=== PATIENT | female | born 1970 | race Caucasian/White ===

== ENCOUNTER → 2018-11-27 11:30 | Outpatient (CLI) | payer MEDICAID, SELFPAY ==
[2018-11-27 12:22] LABS: Basophils % 0.4 % (0.1-2.0); Eosinophils # 0.1 K/mm3 (0.0-0.4); Eosinophils % 1.9 % (0.1-12.0); Hematocrit 41.6 % (37.0-47.0); Hemoglobin 13.3 g/dL (12.2-16.2); Lymphocytes # 1.4 K/mm3 (0.7-4.5); Lymphocytes % 24.6 % (10-50); Mean Corpuscular HGB Conc 32.1 g/dL (31.8-35.4); Mean Corpuscular Hemoglobin 28.9 pg (27.0-31.2); Mean Platelet Volume 8.1 fl (7.4-10.4); Monocytes # 0.3 K/mm3 (0.1-1.0); Neutrophils # 3.7 K/mm3 (1.8-7.8); Platelet Count 225 K/mm3 (142-424); Red Blood Count 4.62 M/mm3 (4.20-5.40); Red Cell Distribution Width 15.1 % (11.5-17.5); White Blood Count 5.4 K/mm3 (4.8-10.8)
[2018-11-27 14:55] LABS: Alanine Aminotransferase 34 U/L (12-78); Albumin Level 3.7 gm/dL (3.4-5.0); Albumin/Globulin Ratio 1.1 (1.1-1.8); Alkaline Phosphatase 91 U/L (46-116); Anion Gap 14.1 mEq/L (5-15); Aspartate Amino Transferase 22 U/L (15-37); Bilirubin,Total 0.3 mg/dL (0.2-1.0); Blood Urea Nitrogen 11 mg/dL (7-18); Carbon Dioxide 27 mmol/L (21.0-32.0); Chloride 103 mmol/L (98-107); Creatinine,Serum 1.15 mg/dL (0.55-1.02); Estimated Glomerular Filt Rate 50 ml/min (>60); GFR (African American) 61 ML/MIN (>60); Globulin 3.5 gm/dl (1.3-3.2); Glucose 79 mg/dL (74-106); Potassium 4.1 mmoL/L (3.5-5.1); Sodium 140 mmol/L (136-145); Thyroid Stimulating Hormone 2.25 uIU/ml (0.358-3.740); Total Protein,Serum 7.2 gm/dL (6.4-8.2)
[2018-11-28 18:36] LABS: FSH 38.5 mIU/mL (.); LH 20.7 mIU/mL (.)
== END ==
PROVIDERS: PCP Internal Medicine Adolescent Medicine; Visit Provider Internal Medicine Adolescent Medicine
DX: N93.9 Abnormal uterine and vaginal bleeding, unspecified (principal); E66.9 Obesity, unspecified
CPT/HCPCS: 36415; 80053; 83001; 83002; 84443; 85025

== ENCOUNTER → 2019-01-06 10:44 | Outpatient (CLI) | payer MEDICAID, SELFPAY ==
--- NOTE | 2019-01-06 10:47 | MM_ITS ---
MM Dig screening mamm BI w/CAD ORDERING PHYSICIAN : Demetrius Williamson MD PATIENT AGE: 48 years GENDER: Female [facility] 2016 and May 2014 INDICATION: ITS.Routine SCREENING.. Taking control pills. No new complaints. Family history. Mother with breast cancer postmenopausal TECHNIQUE: Standard CC and MLO images were obtained. R2 CAD reviewed. FINDINGS: Mild/moderate residual fibroglandular elements towards upper outer quadrant right and left breast. Overall pattern with mild asymmetry appears stable with no dominant mass nor suspicious findings. No suspicious calcifications. No new areas of concern in either breast. . The appearance at superior right breast appears stable on today's MLO view versus 2016 and other studies. No new findings. Bilateral follow-up in one year recommended. IMPRESSION: Stable bilateral mammogram. No new areas of significant concern Moderate breast density. Bilateral follow-up in one year recommended BI-RADS Category: 2 Benign Finding(s) RECOMMENDED FOLLOW-UP: 1YR 1 YEAR FOLLOW-UP (A letter has been sent to the patient regarding results of the study.)
== END ==
PROVIDERS: PCP Internal Medicine Adolescent Medicine; Visit Provider Internal Medicine Adolescent Medicine
DX: Z12.31 Encounter for screening mammogram for malignant neoplasm of breast (principal)
CPT/HCPCS: 77067

== ENCOUNTER 2019-12-03 18:28 | Emergency (ER) | payer OTHER, SELFPAY ==
[2019-12-03 18:42] VITALS: BP 119/78; PULSE 79; RESP 20; TEMP 36.7; O2SAT 99; BMI 33.8
--- NOTE | 2019-12-03 18:58 | HMH.EDUTC ---
[facility] [place] Clinical Impression: Allergic reaction Qualifiers: Encounter type: initial encounter Qualified Code(s): T78.40XA - Allergy, unspecified, initial encounter Bee sting Qualifiers: Encounter type: initial encounter Injury intent: accidental or unintentional Qualified Code(s): T63.441A - Toxic effect of venom of bees, accidental (unintentional), initial encounter Disposition: Home, Self-Care Condition on Discharge: Good Instructions: Insect Bites and Stings, DI for Hives Additional Instructions: Drink plenty of fluids. Take benedryl regularly every 6 hours for the next few days. Take the medications as directed. Follow up with your regular doctor. GO TO THE ER FOR ANY WORSENING SYMPTOMS Prescriptions: methylPREDNISolone [Medrol] 4 mg PO DIRECTED 6 Days #21 tab.ds.pk Transmission Status: Received by [id number] Referrals: Skylar Farley PA [Primary Care Provider] - Time of Disposition: 19:02 Medical Decision Making - Medical Records Medical records reviewed: No: I reviewed the patient's medical records. - Jatin Inquiry Pt receiving controlled substance: No Vital Signs: 12/03/19 18:42 12/03/19 19:10 Temperature 98.1 F 98.1 F Temperature Source Oral Pulse Rate 79 Pulse Rate [Right Brachial] 79 Respiratory Rate 20 20 Blood Pressure 119/78 Blood Pressure [Right Arm] 119/78 Blood Pressure Mean [Right Arm] 91 Blood Pressure Source [Right Arm] Automatic Cuff Blood Pressure Position [Right Arm] Sitting 02 Sat by Pulse Oximetry 99 Oxygen Delivery Method Room Air - Lab Data Lab results reviewed: Yes: I reviewed the patient's lab results. Orders (Tests/Meds): ED MEDICATIONS Discontinued Medications Generic Name Dose Route Start Last Admin Trade Name Freq PRN Reason Stop Dose Admin Methylprednisolone Sodium Succinate 125 mg 12/03/19 19:04 12/03/19 19:08 Solu-Medrol 125mg/2ml Vial IM 12/03/19 19:05 125 mg ONCE ONE Administration [facility] [place] - General Stated complaint: hives on chest arms and legs Time Seen by Provider: 12/03/19 18:58 Mode of Arrival: Ambulatory Source of Information: Patient Limitations: No Limitations Description of Symptoms (Recalled from Triage Doc. by RN): PATIENT C/O RASH/HIVES TO CHEST, FACE, ARMS AND LEGS SINCE 399, CAUSE UNKNOWN HEENT Symptoms (Recalled from RN notes): No Resp Symptoms (Recalled from RN notes): No Skin Symptoms (Recalled from RN notes): Yes MS Symptoms (Recalled from RN notes): No Functional Status (Recalled from RN notes): wnl - History of Present Illness Provider Complaint: She c/o having hives all over her body since this morning. She states that she got stung by a bee yesterday. She denies any chest pain, mouth or throat swelling or shortness of breath. - Related Data Home Medications Medication Instructions Recorded Confirmed Buspirone HCl [Buspar 10mg 10 mg PO BID 12/03/19 12/03/19 tablet] Citalopram Hydrobromide 20 mg PO DAILY 12/03/19 12/03/19 [Citalopram 20mg Tablet] Previous Rx's Medication Instructions Recorded methylPREDNISolone [Medrol] 4 mg PO DIRECTED 6 Days #21 12/03/19 tab.ds.pk Allergies Allergy/AdvReac Type Severity Reaction Status Date / Time pseudoephedrine Allergy Verified 12/03/19 18:47 [From [facility]] - Worker's Comp Is this a Worker's Comp case?: No [facility] History - Hepatitis A Screen Drug use history?: No High risk sexual behaviors?: No History of sexually transmitted infection?: No Currently employed?: No Childcare worker?: No Do you have indoor plumbing?: Yes Do you have electricity?: Yes Attestation statement:: This patient has been screened for Hepatitis A risk factors. I have reviewed the patient's past medical history: Yes - Social History Smoking Status: Never smoker Alcohol Intake: never Occupational Status: other ROS Obtained: Yes All systems reviewed & no additional complaints - Cons
[2019-12-03 19:10] VITALS: BP 119/78; PULSE 79; RESP 20; TEMP 36.7; O2SAT 99
== END 2019-12-03 19:13 | disposition home or self-care (01) ==
PROVIDERS: Emergency Provider Nurse Practitioner Family; PCP Nurse Practitioner Family
DX: T63.441A Toxic effect of venom of bees, accidental (unintentional), initial encounter (principal)
CPT/HCPCS: 96372; 99201

== ENCOUNTER 2019-12-28 13:39 | Emergency (ER) | payer OTHER, SELFPAY ==
[2019-12-28 13:54] VITALS: BP 108/74; PULSE 90; RESP 20; TEMP 36.9; O2SAT 98; BMI 32.3
--- NOTE | 2019-12-28 13:56 | HMH.EDUTC ---
[facility] [place] Impression: Otitis media Qualifiers: Otitis media type: suppurative Chronicity: acute Laterality: left Recurrence: non-recurrent Spontaneous tympanic membrane rupture: without spontaneous rupture Qualified Code(s): H66.002 - Acute suppurative otitis media without spontaneous rupture of ear drum, left ear Disposition: Home Health Service Condition on Discharge: Good Instructions: Middle Ear Infection Prescriptions: Amoxicillin [Amoxicillin 500mg Tab] 500 mg PO BID 10 Days #20 tab Transmission Status: Pending to [id number] Referrals: Skylar Farley PA [Primary Care Provider] - Time of Disposition: 13:59 Medical Decision Making - Jatin Inquiry Pt receiving controlled substance: No Vital Signs: 12/28/19 13:54 Temperature 98.4 F Temperature Source Temporal Artery Scan Pulse Rate [Right Brachial] 90 Respiratory Rate 20 Blood Pressure [Right Arm] 108/74 L Blood Pressure Mean [Right Arm] 85 Blood Pressure Source [Right Arm] Automatic Cuff Blood Pressure Position [Right Arm] Sitting 02 Sat by Pulse Oximetry 98 Oxygen Delivery Method Room Air [facility] [place] - General Chief complaint: Ear Stated complaint: ear pain Time Seen by Provider: 12/28/19 13:57 Mode of Arrival: Ambulatory Source of Information: Patient Limitations: No Limitations Description of Symptoms (Recalled from Triage Doc. by RN): left ear pain HEENT Symptoms (Recalled from RN notes): Yes Resp Symptoms (Recalled from RN notes): No Skin Symptoms (Recalled from RN notes): No MS Symptoms (Recalled from RN notes): No Functional Status (Recalled from RN notes): none - History of Present Illness Provider Complaint: 49 yr old female presents for left ear pain - Related Data Home Medications Medication Instructions Recorded Confirmed Buspirone HCl [Buspar 10mg 10 mg PO BID 12/03/19 12/28/19 tablet] Citalopram Hydrobromide 20 mg PO DAILY 12/03/19 12/28/19 [Citalopram 20mg Tablet] Previous Rx's Medication Instructions Recorded Amoxicillin [Amoxicillin 500mg Tab] 500 mg PO BID 10 Days #20 tab 12/28/19 Allergies Allergy/AdvReac Type Severity Reaction Status Date / Time pseudoephedrine Allergy Verified 12/03/19 18:47 [From [facility]] - Worker's Comp Is this a Worker's Comp case?: No [facility] History - Hepatitis A Screen Drug use history?: No High risk sexual behaviors?: No History of sexually transmitted infection?: No Currently employed?: No Childcare worker?: No Do you have indoor plumbing?: Yes Do you have electricity?: Yes Attestation statement:: This patient has been screened for Hepatitis A risk factors. I have reviewed the patient's past medical history: Yes Medical History: Denies:: Cancer, Diabetes Mellitus Type 1, Diabetes Mellitus Type 2, Internal Pacemaker, MRSA Other Surgeries: No: Pacemaker Amputation: No Fractures: No - Social History Smoking Status: Never smoker Alcohol Intake: never Occupational Status: unemployed ROS Obtained: Yes Systems reviewed as appropriate & no additional complaints - Constitutional Constitutional: Reports system reviewed and no additional complaints, except as docu, Denies fatigue, Denies fever(s) - Eyes Eyes: Reports system reviewed and no additional complaints, except as docu, Denies change in vision - ENT Ears, Nose, Mouth, and Throat: Reports system reviewed and no additional complaints, except as docu, Reports otalgia, Reports hearing loss, Denies sinus pain, Denies sore throat - Cardiovascular Cardiovascular: Reports system reviewed and no additional complaints, except as docu, Denies chest pain - Respiratory Respiratory: Yes system reviewed and no additional complaints, except as docu, No chest congestion - Gastrointestinal Gastrointestingal: Reports: system reviewed and no additional complaints, except as docu. Denies: nausea, vomiting - Genitourinary Female Genitourinary: Reports system reviewed and
[2019-12-28 14:00] VITALS: BP 108/74; PULSE 80; RESP 18; TEMP 36.9
== END 2019-12-28 14:04 | disposition home health service (06) ==
PROVIDERS: Emergency Provider Nurse Practitioner Family; PCP Nurse Practitioner Family
DX: H66.002 Acute suppurative otitis media without spontaneous rupture of ear drum, left ear (principal)
CPT/HCPCS: 99201

== ENCOUNTER → 2020-01-10 08:31 | Outpatient (CLI) | payer OTHER, SELFPAY ==
--- NOTE | 2020-01-10 08:36 | MM_ITS ---
PROCEDURE: MM DIG SCREENING MAMM BI W/CAD Digital Breast Tomosynthesis Included CLINICAL INDICATION: SCREENING There is a history of breast cancer patient's mother diagnosed at age 67. COMPARISON: MG DIG MAMM-SCREEN NIDA from 01/06/2019 TECHNIQUE: Standard CC and MLO images and 3D Tomosynthesis was obtained. R2 CAD reviewed. FINDINGS: Moderate diffuse fibroglandular densities are seen throughout both breasts. Few benign-appearing microcalcifications in each breast. No suspicious lesion in either breast and no suspicious microcalcifications. IMPRESSION: Moderate diffuse breast density with no suspicious lesions seen BI-RAD Category: 2 Benign Finding(s) FOLLOW-UP: 1YR 1 Year Follow-up (A letter has been sent to the patient regarding results of the study.) Dictated Dr. Kyle Seay MD 01/11/2020 10:01 Dr. Kyle Dawson MD in [place] 01/11/2020 10:01
== END ==
PROVIDERS: PCP Nurse Practitioner Family; Visit Provider Nurse Practitioner Family
DX: Z12.31 Encounter for screening mammogram for malignant neoplasm of breast (principal)
CPT/HCPCS: 77063; 77067

== ENCOUNTER → 2020-05-02 09:44 | Outpatient (CLI) | payer OTHER, SELFPAY ==
--- NOTE | 2020-05-02 | XR_ITS ---
PROCEDURE: XR KNEE RT 3V CLINICAL INDICATION: RT MEDIAL KNEE PAIN COMPARISON: No exams were available for comparison FINDINGS: No fracture or dislocation. No lytic or blastic change. There is normal mineralization. There are mild osteoarthritic changes involving all 3 compartments. Mildly prominent osteophytes are present at the posterior patella. Other findings:None. IMPRESSION: Osteoarthritis Dictated by: Mello Dwyer MD 05/02/2020 17:42 Mello Dwyer MD in [place] 05/02/2020 17:42
--- NOTE | 2020-05-02 | XR_ITS ---
PROCEDURE: XR HAND RT 2V CLINICAL INDICATION: RT HAND PAIN COMPARISON: No exams were available for comparison FINDINGS: No fracture or dislocation. No lytic or blastic change. There is normal mineralization. There are mild osteoarthritic changes at the 1st metacarpal-carpal junction, 1st interphalangeal junction, 3rd metacarpophalangeal junction. No lytic or blastic change. There are also osteoarthritic changes at the distal radial ulnar joint. Other findings:None. IMPRESSION: Osteoarthritic change, no acute finding Dictated by: Mello Dwyer MD 05/02/2020 17:41 Mello Dwyer MD in [place] 05/02/2020 17:41
== END ==
PROVIDERS: PCP Nurse Practitioner Family; Visit Provider Nurse Practitioner Family
DX: M25.561 Pain in right knee (principal); M79.641 Pain in right hand
CPT/HCPCS: 73120; 73562

== ENCOUNTER 2020-09-01 14:31 | Emergency (ER) | payer OTHER, SELFPAY ==
[2020-09-01 14:56] VITALS: BP 124/72; PULSE 72; RESP 16; TEMP 36.6; O2SAT 98; BMI 33.9
--- NOTE | 2020-09-01 15:02 | HMH.EDUTC ---
[facility] [place] Clinical Impression: Gastroenteritis Disposition: Home, Self-Care Condition on Discharge: Good Instructions: Viral Gastroenteritis, DI for Viral Gastroenteritis -- Adult Additional Instructions: Drink plenty of fluids. Take tylenol or ibuprofen for pain or fever. Take the zofran for nausea/vomiting. Take the medications as directed. Follow up with your regular doctor. GO TO THE ER FOR ANY WORSENING SYMPTOMS Prescriptions: Ondansetron [Zofran 4mg ODT] 4 mg PO Q8HP PRN #20 tab.rapdis PRN Reason: Nausea Transmission Status: Received by [id number] Referrals: Skylar Farley PA [Primary Care Provider] - Time of Disposition: 15:14 Medical Decision Making - Medical Records Medical records reviewed: No: I reviewed the patient's medical records. - Jatin Inquiry Pt receiving controlled substance: No Vital Signs: 09/01/20 14:56 09/01/20 15:33 Temperature 97.8 F 98 F Temperature Source Oral Pulse Rate 83 Pulse Rate [Right] 72 Respiratory Rate 16 18 Blood Pressure 127/77 Blood Pressure [Right Arm] 124/72 Blood Pressure Mean [Right Arm] 89 Blood Pressure Source [Right Arm] Automatic Cuff Blood Pressure Position [Right Arm] Sitting 02 Sat by Pulse Oximetry 98 Oxygen Delivery Method Room Air [facility] [place] HPI - General Stated complaint: rt side pain, abdominal pain Time Seen by Provider: 09/01/20 15:02 Mode of Arrival: Ambulatory Source of Information: Patient Limitations: No Limitations Description of Symptoms (Recalled from Triage Doc. by RN): pt c/o stomach ache with N/V/D. HEENT Symptoms (Recalled from RN notes): No Resp Symptoms (Recalled from RN notes): No Skin Symptoms (Recalled from RN notes): No MS Symptoms (Recalled from RN notes): No Functional Status (Recalled from RN notes): na - History of Present Illness Provider Complaint: she c/o n/v/d since yesterday. She has had upper abdominal pain also. - Related Data Home Medications Medication Instructions Recorded Confirmed Buspirone HCl [Buspar 10mg 10 mg PO BID 12/03/19 12/28/19 tablet] Citalopram Hydrobromide 20 mg PO DAILY 12/03/19 12/28/19 [Citalopram 20mg Tablet] Previous Rx's Medication Instructions Recorded Amoxicillin [Amoxicillin 500mg Tab] 500 mg PO BID 10 Days #20 tab 12/28/19 Ondansetron [Zofran 4mg ODT] 4 mg PO Q8HP PRN #20 tab.rapdis 09/01/20 Allergies Allergy/AdvReac Type Severity Reaction Status Date / Time pseudoephedrine Allergy Verified 09/01/20 14:59 [From [facility]] - Worker's Comp Is this a Worker's Comp case?: No [facility] History - Hepatitis A Screen Drug use history?: No High risk sexual behaviors?: No History of sexually transmitted infection?: No Currently employed?: No Childcare worker?: No Do you have indoor plumbing?: Yes Do you have electricity?: Yes Attestation statement:: This patient has been screened for Hepatitis A risk factors. I have reviewed the patient's past medical history: Yes Medical History: Denies:: Cancer, Diabetes Mellitus Type 1, Diabetes Mellitus Type 2, Internal Pacemaker, MRSA Other Surgeries: No: Pacemaker Amputation: No Fractures: No - Social History Smoking Status: Never smoker Alcohol Intake: never Occupational Status: employed ROS Obtained: Yes All systems reviewed & no additional complaints - Constitutional Constitutional: Denies chills, Denies fever(s) - Cardiovascular Cardiovascular: Denies chest pain - Respiratory Respiratory: Denies chest congestion, Denies cough - Gastrointestinal Gastrointestingal: Reports: diarrhea, nausea, vomiting. Denies: abdominal pain Physical Exam - General General appearance: alert, in no apparent distress - Head Head exam: atraumatic, normocephalic, normal inspection - Eye Eye exam: Present: normal appearance, PERRL, EOMI - ENT ENT exam: Present: normal exam, normal oropharynx, mucous membranes moist, TM's normal rickie
[2020-09-01 15:33] VITALS: BP 127/77; PULSE 83; RESP 18; TEMP 36.6
== END 2020-09-01 15:15 | disposition home or self-care (01) ==
PROVIDERS: Emergency Provider Nurse Practitioner Family; PCP Nurse Practitioner Family
DX: K52.9 Noninfective gastroenteritis and colitis, unspecified (principal)
CPT/HCPCS: 99202; G0463

== ENCOUNTER → 2020-09-08 12:45 | Outpatient (CLI) | payer OTHER, SELFPAY ==
--- NOTE | 2020-09-08 13:13 | XR_ITS ---
PROCEDURE: XR KNEE LT 4V CLINICAL INDICATION: BL knee pain Left knee pain COMPARISON: CR XR KNEE RT 3V from 05/02/2020 FINDINGS: No fracture or dislocation. No lytic or blastic change. There is normal mineralization. Mild osteoarthritic changes are present at the patellofemoral joint. Small enthesophyte noted along the superior patella anteriorly. Other findings:None. IMPRESSION: Mild osteoarthritic change patellofemoral joint Dictated by: Mello Dwyer MD 09/08/2020 13:49 Mello Dwyer MD in [place] 09/08/2020 13:49
--- NOTE | 2020-09-08 13:13 | XR_ITS ---
PROCEDURE: XR KNEE RT 4V CLINICAL INDICATION: BL knee pain Right knee pain COMPARISON: CR XR KNEE RT 3V from 05/02/2020 FINDINGS: No fracture or dislocation. No lytic or blastic change. There is normal mineralization. There are mild osteoarthritic changes involving all 3 compartments the with decrease in joint space and osteophyte formation. Overall not significantly changed. Other findings:None. IMPRESSION: Mild tricompartment osteoarthritis Dictated by: Mello Dwyer MD 09/08/2020 13:45 Mello Dwyer MD in [place] 09/08/2020 13:45
== END ==
PROVIDERS: PCP Nurse Practitioner Family; Visit Provider Orthopaedic Surgery
DX: M25.561 Pain in right knee (principal)
CPT/HCPCS: 73564

== ENCOUNTER → 2020-10-06 08:59 | Outpatient (CLI) | payer OTHER, SELFPAY ==
--- NOTE | 2020-10-06 09:02 | XR_ITS ---
PROCEDURE: XR HAND LT MIN 3V CLINICAL INDICATION: BL hand pain COMPARISON: CR XR HAND RT 2V from 05/02/2020 FINDINGS: There are mild osteoarthritic change at the 1st interphalangeal joint, 1st carpometacarpal joint, scapho trapezium joint, distal radial ulnar joint, 3rd metacarpophalangeal joint with a small periarticular calcification medially No fracture or dislocation Other findings:None. IMPRESSION: Mild osteoarthritic changes Dictated by: Mello Dwyer MD 10/06/2020 12:32 Mello Dwyer MD in [place] 10/06/2020 12:32
--- NOTE | 2020-10-06 09:02 | XR_ITS ---
PROCEDURE: XR HAND RT MIN 3V CLINICAL INDICATION: BL hand pain COMPARISON: CR XR HAND RT 2V from 05/02/2020 FINDINGS: No fracture or dislocation. No lytic or blastic change. There is normal mineralization. There are mild osteoarthritic changes at the 1st interphalangeal joint, 1st metacarpophalangeal joint, and 3rd metacarpophalangeal joint. Degenerative changes also noted at distal radial ulnar joint unchanged. Overall not significantly changed. Other findings:None. IMPRESSION: No change in the mild osteoarthritic changes as described above. Dictated by: Mello Dwyer MD 10/06/2020 12:30 Mello Dwyer MD in [place] 10/06/2020 12:30
== END ==
PROVIDERS: PCP Nurse Practitioner Family; Visit Provider Orthopaedic Surgery
DX: M79.642 Pain in left hand (principal); M79.641 Pain in right hand
CPT/HCPCS: 73130

== ENCOUNTER → 2020-10-31 08:47 | Outpatient (CLI) | payer OTHER, SELFPAY | PROVIDERS: Visit Provider Nurse Practitioner | DX: Z01.812 Encounter for preprocedural laboratory examination (principal); Z20.822 Contact with and (suspected) exposure to COVID-19; Z12.11 Encounter for screening for malignant neoplasm of colon | CPT/HCPCS: U0003 ==

== ENCOUNTER 2020-11-02 07:12 | Day surgery (SDC) | payer OTHER, SELFPAY ==
[2020-10-24 13:19] VITALS: BMI 34.8
[2020-11-02 07:31] VITALS: BP 124/78; PULSE 79; RESP 18; TEMP 36.5; O2SAT 99
--- NOTE | 2020-11-02 07:54 | HMH.ANESCL ---
[facility] Anesthesia Checklist - Patient Identification Patient Identification: Arm Band - Structural Data Admitted From: Home Planned Operative Procedure/s: Colonoscopy Consent for Planned Operative Procedure(s) Verified: Yes - NPO Status Verified Time NPO: 00:00 - Airway Assessment C-Spine Mobility Assessed: Yes TMJ Mobility Assessed: Yes Dentition: Good Dentition - Neurological Assessment Level of Consciousness: Awake Hx Seizures: No Numbness or tingling in extremities: No - Anesthesia Plan Anesthesia Risk discussed: Yes Anesthesia Plan: Verified ASA Class: II Anesthesia Type: MAC [facility] History I have reviewed the patient's past medical history: Yes Medical History: Denies:: Cancer, Diabetes Mellitus Type 1, Diabetes Mellitus Type 2, Internal Pacemaker, MRSA, Seizures *Have you ever received a pneumonia vaccine?: No *Have you received a flu vaccine this season?: Yes Anesthesia experience/problems:: None Laterality Cases: Bilateral: Tonsillectomy Other Surgeries: Yes: Other. No: Pacemaker Amputation: No Fractures: No - *Social History Last grade of school completed: High school graduate Smoking Status: Never smoker Alcohol Intake: never Substance Use Type: denies use *Occupational Status:: unemployed *Travel in the last 8 weeks: None Family Hx:: No significant family history
[2020-11-02 07:55] LABS: Urine Pregnancy, HCG Qual. Negative (Negative)
[2020-11-02 08:22] VITALS: O2SAT 97
[2020-11-02 08:52] VITALS: BP 95/51; PULSE 71; RESP 18; O2SAT 93
--- NOTE | 2020-11-02 08:53 | P.PCN_ITS ---
- Procedure: Date: 11/02/20 Patient Date of :: 1970 Procedure Performed:: Colonoscopy with polypectomy Indications:: Screening Performing Provider:: Chapin Acosta MD Referring Provider:: . Sedation:: Monitored anesthesia care Procedure:: After informed consent was obtained the patient was taken to the endoscopy suite. Sedation ensued after the patient was transferred to the left lateral decubitus position. Pulse, blood pressure, and oxygen saturation were monitored throughout the procedure. Digital rectal exam revealed no significant ab normality. The colonoscope was placed in position. The entire colon was evaluated. The colonoscope was carefully removed and the patient was transferred to recovery in stable condition. Please see findings and specimens below for detail. Findings:: Bowel preparation fair to moderate Moderate spasticity Hemorrhoidal cushions Cluster of sessile polyps around 60 cm (cold snare and tattoo) Specimens:: Cluster of sessile polyps around 60 cm (cold snare and tattoo) Recommendations:: Timing of repeat colonoscopy is pending pathology but will likely be between 6- 12 months secondary to nature of polyps around 60 cm and need for close reevaluation of tattoo site. Complications:: No immediate Estimated blood obtained (mL): 1
[2020-11-02 09:05] VITALS: BP 87/55; PULSE 78; RESP 18; O2SAT 93
[2020-11-02 09:12] VITALS: BP 108/63; PULSE 77; RESP 18; O2SAT 94
== END 2020-11-02 09:15 | disposition home or self-care (01) ==
LOC: OUTP 07:13
PROVIDERS: PCP Nurse Practitioner Family; Visit Provider Surgery
PROC: 0DJD8ZZ Inspection of Lower Intestinal Tract, Via Natural or Artificial Opening Endoscopic (ICD-10-PCS; CPT 45385; principal; 2020-11-02 08:30)
DX: Z12.11 Encounter for screening for malignant neoplasm of colon (principal); K64.0 First degree hemorrhoids; K63.5 Polyp of colon; K58.9 Irritable bowel syndrome, unspecified; F41.9 Anxiety disorder, unspecified; Z79.899 Other long term (current) drug therapy; Z88.8 Allergy status to other drugs, medicaments and biological substances
CPT/HCPCS: 45385; 45381; 81025

== ENCOUNTER 2020-11-10 13:42 | Outpatient (RCR) | payer OTHER, SELFPAY | END 2020-11-10 14:27 | disposition home or self-care (01) | LOC: OT 13:42 | PROVIDERS: Visit Provider Orthopaedic Surgery | DX: G56.03 Carpal tunnel syndrome, bilateral upper limbs (principal) | CPT/HCPCS: 97763 ==

== ENCOUNTER 2020-11-23 11:53 | Emergency (ER) | payer OTHER, SELFPAY ==
[2020-11-23 12:06] VITALS: BP 140/71; PULSE 82; RESP 18; TEMP 36.8; O2SAT 98; BMI 35.0
--- NOTE | 2020-11-23 12:39 | HMH.EDUTC ---
[facility] [place]ression: Otitis media Qualifiers: Otitis media type: suppurative Chronicity: acute Laterality: bilateral Recurrence: non-recurrent Spontaneous tympanic membrane rupture: without spontaneous rupture Qualified Code(s): H66.003 - Acute suppurative otitis media without spontaneous rupture of ear drum, bilateral Disposition: Home, Self-Care Condition on Discharge: Good Instructions: Middle Ear Infection Additional Instructions: Drink plenty of fluids. Take tylenol or ibuprofen for pain or fever. Take the medications as directed. Follow up with your regular doctor. GO TO THE ER FOR ANY WORSENING SYMPTOMS Don't start the oral steroids (prednisone) until tomorrow, since you had the shot here today. Prescriptions: Amoxicillin [Amoxicillin 500mg Tab] 500 mg PO TID 10 Days #30 tab Transmission Status: Received by [facility] predniSONE [Deltasone 10mg tablet] 10 mg PO BID 3 Days #6 tab [facility] Status: [facility] Referrals: Skylar Farley PA [Primary Care Provider] - Time of Disposition: 13:04 Medical Decision Making - Medical Records Medical records reviewed: No: I reviewed the patient's medical records. - Jatin Inquiry Pt receiving controlled substance: No Vital Signs: 11/23/20 12:06 11/23/20 13:06 Temperature 98.2 F 98.2 F Temperature Source Oral Pulse Rate 82 Pulse Rate [Right] 82 Respiratory Rate 18 18 Blood Pressure 140/71 Blood Pressure [Right Arm] 140/71 Blood Pressure Mean [Right Arm] 94 Blood Pressure Source [Right Arm] Automatic Cuff Blood Pressure Position [Right Arm] Sitting 02 Sat by Pulse Oximetry 98 Oxygen Delivery Method Room Air Orders (Tests/Meds): ED MEDICATIONS Discontinued Medications Generic Name Dose Route Start Last Admin Trade Name Freq PRN Reason Stop Dose Admin Methylprednisolone Sodium Succinate 125 mg 11/23/20 12:46 11/23/20 12:53 Methylprednisolone Sod Succ 125mg Vial IM 11/23/20 12:47 125 mg ONCE ONE Administration [facility] [place] - General Stated complaint: rt ear pain Time Seen by Provider: 11/23/20 12:39 Mode of Arrival: Ambulatory Source of Information: Patient Limitations: No Limitations Description of Symptoms (Recalled from Triage Doc. by RN): R ear ache and sinus pain/pressure HEENT Symptoms (Recalled from RN notes): Yes (R ear ache and sinus pressure) Resp Symptoms (Recalled from RN notes): No Skin Symptoms (Recalled from RN notes): No MS Symptoms (Recalled from RN notes): No Functional Status (Recalled from RN notes): na - History of Present Illness Provider Complaint: She reports right ear pain for the past 2 days. She has a history of getting ear infections kind of frequently. She denies any fever or chills. - Related Data Home Medications Medication Instructions Recorded Confirmed Buspirone HCl [Buspar 10mg 10 mg PO BID 12/03/19 11/15/20 tablet] Citalopram Hydrobromide 20 mg PO DAILY 12/03/19 11/15/20 [Citalopram 20mg Tablet] Cholecalciferol (Vitamin D3) 2,000 unit PO DAILY 10/24/20 11/15/20 [Vitamin D3 1,000 Unit Cap] Folic Acid 0.4 mg PO DAILY 10/24/20 11/15/20 Mecobalamin [B12 Active] 1,000 mcg PO DAILY 10/24/20 11/15/20 Previous Rx's Medication Instructions Recorded Ondansetron [Zofran 4mg ODT] 4 mg PO Q8HP PRN #20 tab.rapdis 09/01/20 Amoxicillin [Amoxicillin 500mg Tab] 500 mg PO TID 10 Days #30 tab 11/23/20 predniSONE [Deltasone 10mg tablet] 10 mg PO BID 3 Days #6 tab 11/23/20 Allergies Allergy/AdvReac Type Severity Reaction Status Date / Time pseudoephedrine Allergy Verified 11/15/20 09:25 [facility] - Worker's Comp Is this a Worker's Comp case?: No [facility] History - Hepatitis A Screen Drug use history?: No High risk sexual behaviors?: No History of sexually transmitted infection?: No Currently employed?: No Childcare worker?: No Do you have indoor plumbing?: Yes Do you have el
[2020-11-23 13:06] VITALS: BP 140/71; PULSE 82; RESP 18; TEMP 36.8
== END 2020-11-23 13:10 | disposition home or self-care (01) ==
PROVIDERS: Emergency Provider Nurse Practitioner Family; PCP Nurse Practitioner Family
DX: H66.003 Acute suppurative otitis media without spontaneous rupture of ear drum, bilateral (principal)
CPT/HCPCS: 99202; G0463

== ENCOUNTER 2020-12-05 19:31 | Emergency (ER) | payer OTHER, SELFPAY ==
[2020-12-05 20:15] VITALS: BP 132/87; PULSE 78; RESP 19; TEMP 36.9; O2SAT 98; BMI 35.0
[2020-12-05 21:02] VITALS: BP 132/87; PULSE 78; RESP 19; TEMP 36.9; O2SAT 98
--- NOTE | 2020-12-05 21:11 | HMH.EDUTC ---
[facility] [place] Clinical Impression: Nasal congestion Disposition: Home, Self-Care Condition on Discharge: Good Instructions: DI for Nasal Congestion, Fluticasone Nasal [place] Additional Instructions: *Monitor Temp, Over the counter Motrin or Tylenol as directed/as needed Tylenol every 4 hours and Motrin every 6 hours (as long as your family doctor has told you that you can take it) for fever or pain. and straight to ER if unable to lower temp less than 101.0 after medication given *Warm salt water gargles may help to soothe the throat *Throat Lozenges *Warm fluids like tea with honey may help to soothe the throat *Sleep elevated *Humidifier/Vaporizer *Flonase 2 sprays in each nostril daily but be aware that it may take 2-3 days before you notice improvement Follow up with your family Doctor if no improvement Follow up with your Eye Doctor if you have pain in or around your eye Return if needed Follow up IMMEDIATELY for new or worsening symptoms or no Noticeable improvement over the next 48-72 hours. 911 for difficulty breathing or swallowing Prescriptions: Fluticasone Propionate [Flonase 50mcg nasal spray 16gm] 1 spr NS DAILY #1 bottle Transmission Status: Received by [id number] Referrals: Skylar Farley PA [Primary Care Provider] - As needed Time of Disposition: 21:24 Medical Decision Making - Jatin Inquiry Pt receiving controlled substance: No Jatin was queried for this patient: No Vital Signs: 12/05/20 20:15 12/05/20 21:02 Temperature 98.4 F 98.4 F Temperature Source Oral Pulse Rate 78 Pulse Rate [Right Brachial] 78 Respiratory Rate 19 19 Blood Pressure 132/87 Blood Pressure [Right Arm] 132/87 Blood Pressure Mean [Right Arm] 102 Blood Pressure Source [Right Arm] Automatic Cuff Blood Pressure Position [Right Arm] Sitting 02 Sat by Pulse Oximetry 98 Oxygen Delivery Method Room Air [facility] [place] - General Stated complaint: facial pain Time Seen by Provider: 12/05/20 21:11 Mode of Arrival: Ambulatory Source of Information: Patient Limitations: No Limitations Description of Symptoms (Recalled from Triage Doc. by RN): PATIENT C/O RIGHT JAW AND EYE PAIN X 1 WEEK HEENT Symptoms (Recalled from RN notes): Yes Resp Symptoms (Recalled from RN notes): No Skin Symptoms (Recalled from RN notes): No MS Symptoms (Recalled from RN notes): No Functional Status (Recalled from RN notes): WNL - History of Present Illness Provider Complaint: Patient states she was recently completed antibiotics for ear infection State that she finished them on Friday but thinks she may have a sinus infection States that she is a little tender when she touches the area below her eye on the right side under her eye and feels like her sinuses hurt at times States that feeling comes and goes like she has some congestion in there States that when she blows her nose it is clear but she wanted to get it looked at - Related Data Home Medications Medication Instructions Recorded Confirmed Buspirone HCl [Buspar 10mg 10 mg PO BID 12/03/19 11/15/20 tablet] Citalopram Hydrobromide 20 mg PO DAILY 12/03/19 11/15/20 [Citalopram 20mg Tablet] Cholecalciferol (Vitamin D3) 2,000 unit PO DAILY 10/24/20 11/15/20 [Vitamin D3 1,000 Unit Cap] Folic Acid 0.4 mg PO DAILY 10/24/20 11/15/20 Mecobalamin [B12 Active] 1,000 mcg PO DAILY 10/24/20 11/15/20 Previous Rx's Medication Instructions Recorded Ondansetron [Zofran 4mg ODT] 4 mg PO Q8HP PRN #20 tab.rapdis 09/01/20 Amoxicillin [Amoxicillin 500mg Tab] 500 mg PO TID 10 Days #30 tab 11/23/20 predniSONE [Deltasone 10mg tablet] 10 mg PO BID 3 Days #6 tab 11/23/20 Fluticasone Propionate [Flonase 1 spr NS DAILY #1 bottle 12/05/20 50mcg nasal spray 16gm] Allergies Allergy/AdvReac Type Severity Reaction Status Date / Time pseudoephedrine Allergy Verified 11/15/20 09:25 [From [facility]] - Worker's Comp Is this a Worker's Comp case?: No [facility] Hist
== END 2020-12-05 21:15 | disposition home or self-care (01) ==
PROVIDERS: Emergency Provider Nurse Practitioner; PCP Nurse Practitioner Family
DX: G50.1 Atypical facial pain (principal)

== ENCOUNTER → 2021-01-10 09:40 | Outpatient (CLI) | payer OTHER, SELFPAY ==
--- NOTE | 2021-01-10 09:42 | MM_ITS ---
PROCEDURE: MM DIG SCREENING MAMM BI W/CAD Digital Breast Tomosynthesis Included CLINICAL INDICATION: SCREENING COMPARISON: MG MM DIG SCREENING MAMM BI W/CAD from 01/06/2019 MG MM DIG SCREENING MAMM BI W/CAD from 01/10/2020 TECHNIQUE: Standard CC and MLO images and 3D Tomosynthesis was obtained. R2 CAD reviewed. FINDINGS: Average fibroglandular tissue. No suspicious appearing mass, malignant-appearing microcalcification, architectural distortion, or skin thickening. No significant change IMPRESSION: Negative BI-RAD Category: 1 Negative FOLLOW-UP: 1 YR 1 Year Follow-up (A letter has been sent to the patient regarding results of the study.) Dictated by: Mello Dwyer MD 01/17/2021 18:51 Mello Dwyer MD in [place] 01/17/2021 18:51
== END ==
PROVIDERS: PCP Nurse Practitioner Family; Visit Provider Nurse Practitioner Family
DX: Z12.31 Encounter for screening mammogram for malignant neoplasm of breast (principal)
CPT/HCPCS: 77063; 77067

== ENCOUNTER 2021-02-08 11:10 | Emergency (ER) | payer OTHER, SELFPAY ==
[2021-02-08 12:10] VITALS: BP 169/86; PULSE 87; RESP 18; TEMP 36.6; O2SAT 100; BMI 34.9
--- NOTE | 2021-02-08 12:53 | HMH.EDUTC ---
[facility] [place] Clinical Impression: Otitis media Qualifiers: Otitis media type: unspecified Laterality: right Qualified Code(s): H66.91 - Otitis media, unspecified, right ear Disposition: Home, Self-Care Condition on Discharge: Good Instructions: Middle Ear Infection, Amoxicillin and Clavulanic Acid Additional Instructions: *Monitor Temp, Over the counter Motrin or Tylenol as directed/as needed Tylenol every 4 hours and Motrin every 6 hours (as long as your family doctor has told you that you can take it) for fever or pain. and straight to ER if unable to lower temp less than 101.0 after medication given *Warm salt water gargles may help to soothe the throat *Throat Lozenges *Warm fluids like tea with honey may help to soothe the throat *Sleep elevated *Humidifier/Vaporizer Take medication as prescribed Return if needed Follow up IMMEDIATELY for new or worsening symptoms or no Noticeable improvement over the next 48-72 hours. 911 for difficulty breathing or swallowing Prescriptions: Amoxicillin/Potassium Clav [Augmentin 875-125 Tablet] 1 tab PO Q12H 10 Days #20 tab Transmission Status: Pending to [id number] Referrals: Skylar Farley PA [Primary Care Provider] - As needed Time of Disposition: 12:55 Medical Decision Making - Jatin Inquiry Pt receiving controlled substance: No Jatin was queried for this patient: No Vital Signs: 02/08/21 12:10 Temperature 97.9 F Temperature Source Oral Pulse Rate [Right Brachial] 87 Respiratory Rate 18 Blood Pressure [Right Arm] 169/86 H Blood Pressure Mean [Right Arm] 113 Blood Pressure Source [Right Arm] Automatic Cuff Blood Pressure Position [Right Arm] Sitting 02 Sat by Pulse Oximetry 100 Oxygen Delivery Method Room Air Medical Decision Narrative: Patient reports that she has taken Augmentin in the past without complications or reactions [facility] [place] - General Stated complaint: swelling and pain right side of face, jaw. Time Seen by Provider: 02/08/21 12:53 Mode of Arrival: Ambulatory Source of Information: Patient Limitations: No Limitations Description of Symptoms (Recalled from Triage Doc. by RN): PATIENT C/O RIGHT EAR AND JAW PAIN AND SWELLING TO RIGHT EYE HEENT Symptoms (Recalled from RN notes): Yes Resp Symptoms (Recalled from RN notes): No Skin Symptoms (Recalled from RN notes): No MS Symptoms (Recalled from RN notes): No Functional Status (Recalled from RN notes): WNL - History of Present Illness Provider Complaint: Patient state that she has been having pain in her right ear and it shoots pain into her right jaw and teeth State that she wasnt sure if her ear was infected or her tooth went bad - Related Data Home Medications Medication Instructions Recorded Confirmed Buspirone HCl [Buspar 10mg 10 mg PO BID 12/03/19 11/15/20 tablet] Citalopram Hydrobromide 20 mg PO DAILY 12/03/19 11/15/20 [Citalopram 20mg Tablet] Cholecalciferol (Vitamin D3) 2,000 unit PO DAILY 10/24/20 11/15/20 [Vitamin D3 1,000 Unit Cap] Folic Acid 0.4 mg PO DAILY 10/24/20 11/15/20 Mecobalamin [B12 Active] 1,000 mcg PO DAILY 10/24/20 11/15/20 Previous Rx's Medication Instructions Recorded Ondansetron [Zofran 4mg ODT] 4 mg PO Q8HP PRN #20 tab.rapdis 09/01/20 Amoxicillin [Amoxicillin 500mg Tab] 500 mg PO TID 10 Days #30 tab 11/23/20 predniSONE [Deltasone 10mg tablet] 10 mg PO BID 3 Days #6 tab 11/23/20 Fluticasone Propionate [Flonase 1 spr NS DAILY #1 bottle 12/05/20 50mcg nasal spray 16gm] Amoxicillin/Potassium Clav 1 tab PO Q12H 10 Days #20 tab 02/08/21 [Augmentin 875-125 Tablet] Allergies Allergy/AdvReac Type Severity Reaction Status Date / Time pseudoephedrine Allergy Verified 11/15/20 09:25 [From [facility]] - Worker's Comp Is this a Worker's Comp case?: No [facility] History - Hepatitis A Screen Drug use history?: No High risk sexual behaviors?: No History of sexually transmitted infection?: No Currently em
[2021-02-08 13:04] VITALS: BP 169/86; PULSE 87; RESP 18; TEMP 36.6; O2SAT 100
== END 2021-02-08 13:08 | disposition home or self-care (01) ==
PROVIDERS: Emergency Provider Nurse Practitioner; PCP Nurse Practitioner Family
DX: H66.91 Otitis media, unspecified, right ear (principal)
CPT/HCPCS: 99202; G0463

== ENCOUNTER 2021-06-04 17:22 | Emergency (ER) | payer OTHER, SELFPAY ==
[2021-06-04 19:00] VITALS: BP 135/54; PULSE 80; RESP 20; TEMP 36.8; O2SAT 98; BMI 23.4
--- NOTE | 2021-06-04 19:19 | HMH.EDUTC ---
[facility] [place]ression: Influenza, Cough Disposition: Home, Self-Care Condition on Discharge: Good Instructions: How to Avoid a Cold or Flu, Influenza, Cough, Benzonatate Additional Instructions: ? Too late to start Tamiflu. Most effective when started within 48 hours of symptoms onset ? Lots of rest ? Increase Fluids water, Gatorade, powerade, pedialyte,if /toddler/child ? Alternate Tylenol and / or ibuprofen as discussed for fever, aches, chills Follow up IMMEDIATELY with your family doctor for new or worsening Symptoms OR no noticeable improvement over the next 48-72 hours, 911 for difficulty or breathing ? You or your child area contagious until no fever, aches, chills for 24 hours with medication for symptoms ? Help Prevent the spread of influenza: ? Wash your hands often. Use soap and water. Wash your hands after you use the bathroom, change a child's diapers, or sneeze. Wash your hands before you prepare or eat food. Use gel hand cleanser that has 60% alcohol, when soap and water are not available. Do not touch your eyes, nose, or mouth unless you have washed your hands first. ? Cover your mouth when you sneeze or cough. Cough into a tissue or the bend of your arm. If you use a tissue, throw it away immediately and wash your hands. ? Clean shared items with a germ-killing guide rail cleaner. Clean table surfaces, doorknobs, and light switches. Do not share towels, silverware, and dishes with people who are sick. Wash bed sheets, towels, silverware, and dishes with soap and water. ? Wear a mask over your mouth and nose if you are sick. The face mask may help protect others from becoming infected with the flu. Wear the mask when in common areas of your home or if you seek care with a healthcare provider. ? Stay away from others if you are sick. Stay at home until 24 hours after your fever and symptoms are gone. Prescriptions: Benzonatate [Benzonatate 100mg cap] 100 mg PO Q8HP PRN #15 cap PRN Reason: Cough Transmission Status: Pending to [facility] Referrals: Skylar Farley PA [Primary Care Provider] - As needed Time of Disposition: 19:28 Medical Decision Making - Jatin Inquiry Pt receiving controlled substance: No Jatin was queried for this patient: No Vital Signs: 06/04/21 19:00 06/04/21 19:26 Temperature 98.3 F 98.3 F Temperature Source Oral Pulse Rate 80 Pulse Rate [Right Brachial] 80 Respiratory Rate 20 20 Blood Pressure 135/54 L Blood Pressure [Right Arm] 135/54 L Blood Pressure Mean [Right Arm] 81 Blood Pressure Source [Right Arm] Automatic Cuff Blood Pressure Position [Right Arm] Sitting 02 Sat by Pulse Oximetry 98 Oxygen Delivery Method Room Air - Lab Data Lab results reviewed: Yes: I reviewed the patient's lab results. Lab Results 06/04/21 19:08: Influenza Type A Ag Positive A, Influenza Type B Ag Negative [facility] [place] - General Stated complaint: cough congestion Time Seen by Provider: 06/04/21 19:19 Mode of Arrival: Ambulatory Source of Information: Patient Limitations: No Limitations Description of Symptoms (Recalled from Triage Doc. by RN): PATIENT C/O COUGH, CONGESTION, AND CHILLS SINCE 05/26/21 HEENT Symptoms (Recalled from RN notes): No Resp Symptoms (Recalled from RN notes): Yes Skin Symptoms (Recalled from RN notes): No MS Symptoms (Recalled from RN notes): No Functional Status (Recalled from RN notes): WNL - History of Present Illness Provider Complaint: Patient state that she got sick around [place] States that then she felt like she may have had the flu States that she had body aches, chills, headache and cough States that she is feeling better now but still having a little nagging cough so she came in to get checked - Related Data Home Medications Medication Instructions Recorded Confirmed Buspirone HCl [Buspar 10mg 10 mg PO BID 12/03/19 06/04/21 tablet] Citalopram Hydrobromide 20 mg PO DAILY 12/03/19 06/04/21 [Citalopram 20mg Ta
[2021-06-04 19:22] LABS: UTC Influenza A Antigen Positive (Negative); UTC Influenza B Antigen Negative (Negative)
[2021-06-04 19:26] VITALS: BP 135/54; PULSE 80; RESP 20; TEMP 36.8; O2SAT 98
== END 2021-06-04 19:34 | disposition home or self-care (01) ==
PROVIDERS: Emergency Provider Nurse Practitioner; PCP Nurse Practitioner Family
DX: J10.1 Influenza due to other identified influenza virus with other respiratory manifestations (principal)
CPT/HCPCS: 87804; 99202; G0463

== ENCOUNTER 2021-08-20 09:52 | Emergency (ER) | payer OTHER, SELFPAY ==
[2021-08-20 11:52] VITALS: BP 158/76; PULSE 67; RESP 16; TEMP 36.7; O2SAT 97; BMI 33.9
--- NOTE | 2021-08-20 11:54 | HMH.EDUTC ---
[facility] [place] Clinical Impression: Sinusitis Qualifiers: Sinusitis location: unspecified location Chronicity: acute Recurrence: non-recurrent Qualified Code(s): J01.90 - Acute sinusitis, unspecified Disposition: Home, Self-Care Condition on Discharge: Good Instructions: DI for Sinusitis Additional Instructions: Drink plenty of fluids. Take tylenol or ibuprofen for pain or fever. Take the medications as directed. Follow up with your regular doctor. GO TO THE ER FOR ANY WORSENING SYMPTOMS Don't start the oral steroids until tomorrow, since you had the shot here today. Follow up with your primary care physician and the ENT doctor. I put in the referral to Dr. Melgoza. You need to call her office and get an appointment. Prescriptions: Amoxicillin/Potassium Clav [Amox-Clav 875-125 mg Tablet] 1 tab PO BID #20 tab Transmission Status: Received by [facility] methylPREDNISolone [Medrol] 4 mg PO DIRECTED 6 Days #21 packet Transmission Status: Received by [facility] guaiFENesin [Mucinex 600mg tablet] 1 - 2 tab PO BIDP PRN #30 tab PRN Reason: Congestion Transmission Status: Received by [facility] Referrals: Jose Yepez APRN [Primary Care Provider] - Time of Disposition: 12:27 Medical Decision Making - Medical Records Medical records reviewed: No: I reviewed the patient's medical records. - Jatin Inquiry Pt receiving controlled substance: No Vital Signs: 08/20/21 11:52 08/20/21 13:02 Temperature 98.0 F 98.0 F Temperature Source Oral Oral Pulse Rate 61 Pulse Rate [Left Radial] 67 Respiratory Rate 16 16 Blood Pressure 120/80 Blood Pressure [Right Arm] 158/76 H Blood Pressure Mean [Right Arm] 103 02 Sat by Pulse Oximetry 97 Oxygen Delivery Method Room Air Orders (Tests/Meds): ED MEDICATIONS Discontinued Medications Generic Name Dose Route Start Last Admin Trade Name Freq PRN Reason Stop Dose Admin Ceftriaxone Sodium 1 gm 08/20/21 12:21 08/20/21 12:40 Ceftriaxone 1gm Vial IM 08/20/21 12:22 1 gm ONCE ONE Administration Lidocaine HCl 0 ml 08/20/21 12:21 08/20/21 12:40 Lidocaine 1% 5ml Pf Vial IM 08/20/21 12:22 1 ml ONCE ONE Administration Methylprednisolone Sodium Succinate 125 mg 08/20/21 12:21 08/20/21 12:40 Methylprednisolone Sod Succ 125mg Vial IM 08/20/21 12:22 125 mg ONCE ONE Administration [facility] [place] HPI - General Stated complaint: eye swelling Time Seen by Provider: 08/20/21 11:54 - History of Present Illness Provider Complaint: She states that for the past 3 days she has had swelling and puffiness of her face in her maxilary sinus area and below both eyes. She has had sinus congestion and a runny nose also. 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 She has not had any issues with them before. She believes she has a sinus infection. - Related Data Home Medications Medication Instructions Recorded Confirmed Buspirone HCl [Buspar 10mg 10 mg PO BID 12/03/19 06/04/21 tablet] Citalopram Hydrobromide 20 mg PO DAILY 12/03/19 06/04/21 [Citalopram 20mg Tablet] Previous Rx's Medication Instructions Recorded Benzonatate [Benzonatate 100mg 100 mg PO Q8HP PRN #15 cap 06/04/21 cap] peg 3350-electrolytes 236 240 ml PO Q10M #4000 ml 07/25/21 gram-22.74 gram-6.74 gram-5.86 gram solution Amoxicillin/Potassium Clav 1 tab PO BID #20 tab 08/20/21 [Amox-Clav 875-125 mg Tablet] guaiFENesin [Mucinex 600mg tablet] 1 - 2 tab PO BIDP PRN #30 tab 08/20/21 methylPREDNISolone [Medrol] 4 mg PO DIRECTED 6 Days #21 08/20/21 packet Allergies Allergy/AdvReac Type Severity Reaction Status Date / Time pseudoephedrine Allergy Verified 11/15/20 09:25 [From [facility]] [facility] History - Hepatitis A Screen Attestation statement:: This patient has been screened for Hepatitis A
[2021-08-20 13:02] VITALS: BP 120/80; PULSE 61; RESP 16; TEMP 36.7; O2SAT 100
== END 2021-08-20 13:03 | disposition home or self-care (01) ==
PROVIDERS: Emergency Provider Nurse Practitioner Family; PCP Nurse Practitioner Family
DX: J01.90 Acute sinusitis, unspecified (principal)
CPT/HCPCS: 96372; 99213; G0463; J0696

== ENCOUNTER 2021-08-24 16:23 | Emergency (ER) | payer OTHER, SELFPAY ==
[2021-08-24 16:45] VITALS: BP 128/58; PULSE 77; RESP 22; TEMP 36.7; O2SAT 96; BMI 33.9
--- NOTE | 2021-08-24 17:09 | HMH.EDUTC ---
[facility] [place] Clinical Impression: Tenderness of chest wall Disposition: Home, Self-Care Condition on Discharge: Good Instructions: DI for Atypical Chest Pain Additional Instructions: Apply warm wet compresses to the affected sites three or four times per day for 15 minutes as tolerated. Take the naproxen that you have at home as directed. Follow up with your regular doctor. GO TO THE ER FOR ANY WORSENING SYMPTOMS OR CONCERNS Referrals: Jose Yepez APRN [Primary Care Provider] - Time of Disposition: 18:32 Medical Decision Making - Medical Records Medical records reviewed: No: I reviewed the patient's medical records. - Jatin Inquiry Pt receiving controlled substance: No Vital Signs: 08/24/21 16:45 08/24/21 17:47 Temperature 98.0 F 98.0 F Temperature Source Oral Pulse Rate 77 Pulse Rate [Left Brachial] 77 Respiratory Rate 22 22 Blood Pressure 128/58 L Blood Pressure [Left Arm] 128/58 L Blood Pressure Mean [Left Arm] 81 Blood Pressure Source [Left Arm] Automatic Cuff Blood Pressure Position [Left Arm] Sitting 02 Sat by Pulse Oximetry 96 Oxygen Delivery Method Room Air [facility] [place] - General Stated complaint: sternum swelling and knot Time Seen by Provider: 08/24/21 17:00 Mode of Arrival: Ambulatory Source of Information: Patient, Spouse Limitations: No Limitations Description of Symptoms (Recalled from Triage Doc. by RN): PATIENT C/O TENDERNESS AND A KNOT TO STERNAL AREA BETWEEN BREASTS X 1 WEEK. DENIES SOA/DIFFICULTY BREATHING. SHE STATES PAIN DOES NOT RADIATE HEENT Symptoms (Recalled from RN notes): No Resp Symptoms (Recalled from RN notes): No Skin Symptoms (Recalled from RN notes): No MS Symptoms (Recalled from RN notes): Yes Functional Status (Recalled from RN notes): WNL - History of Present Illness Provider Complaint: She states that she has a tender knot on her sterum. It has been present for the past 3 days approx. She denies any pain, but if she pushes on it or touches it then it hurts. She denies any other complaints. - Related Data Home Medications Medication Instructions Recorded Confirmed Buspirone HCl [Buspar 10mg 10 mg PO BID 12/03/19 06/04/21 tablet] Citalopram Hydrobromide 20 mg PO DAILY 12/03/19 06/04/21 [Citalopram 20mg Tablet] Previous Rx's Medication Instructions Recorded Benzonatate [Benzonatate 100mg 100 mg PO Q8HP PRN #15 cap 06/04/21 cap] Amoxicillin/Potassium Clav 1 tab PO BID #20 tab 08/20/21 [Amox-Clav 875-125 mg Tablet] guaiFENesin [Mucinex 600mg tablet] 1 - 2 tab PO BIDP PRN #30 tab 08/20/21 methylPREDNISolone [Medrol] 4 mg PO DIRECTED 6 Days #21 08/20/21 packet peg 3350-electrolytes 236 240 ml PO Q10M #4000 ml 08/21/21 gram-22.74 gram-6.74 gram-5.86 gram solution Allergies Allergy/AdvReac Type Severity Reaction Status Date / Time pseudoephedrine Allergy Verified 11/15/20 09:25 [From [facility]] - Worker's Comp Is this a Worker's Comp case?: No [facility] History - Hepatitis A Screen Drug use history?: No High risk sexual behaviors?: No History of sexually transmitted infection?: No Currently employed?: No Childcare worker?: No Do you have indoor plumbing?: Yes Do you have electricity?: Yes Attestation statement:: This patient has been screened for Hepatitis A risk factors. I have reviewed the patient's past medical history: Yes Medical History: Denies:: Cancer, Diabetes Mellitus Type 1, Diabetes Mellitus Type 2, Internal Pacemaker, MRSA, Seizures Laterality Cases: Bilateral: Tonsillectomy Other Surgeries: Yes: Colonoscopy, Other. No: Pacemaker Amputation: No Fractures: No - Social History Smoking Status: Never smoker Alcohol Intake: never Substance Use Type: denies use Occupational Status: other Family Hx:: No significant family history ROS Obtained: Yes All systems reviewed & no additional complaints - Constitutional Constitutional: Denies chills, Denies
--- NOTE | 2021-08-24 17:37 | XR_ITS ---
PROCEDURE INFORMATION: Exam: XR Chest Exam date and time: 08/24/2021 6:05 PM Age: 51 years old Clinical indication: Sternal or substernal pain; Additional info: Tenderness to sternum TECHNIQUE: Imaging protocol: XR of the chest. Views: 2 views. COMPARISON: No relevant prior studies available. FINDINGS: Lungs: Unremarkable. No consolidation. Pleural spaces: Unremarkable. No pleural effusion. No pneumothorax. Heart/Mediastinum: Unremarkable. No cardiomegaly. Bones/joints: The sternum is not adequately visualized on the current study. IMPRESSION: No acute findings. Recommendations: If appropriate, follow-up with oblique radiographs of the sternum.
[2021-08-24 17:47] VITALS: BP 128/58; PULSE 77; RESP 22; TEMP 36.7; O2SAT 96
== END 2021-08-24 18:35 | disposition home or self-care (01) ==
PROVIDERS: Emergency Provider Nurse Practitioner Family; PCP Nurse Practitioner Family
DX: R07.89 Other chest pain (principal)
CPT/HCPCS: 71046; 99212; G0463

== ENCOUNTER → 2021-09-16 08:13 | Outpatient (CLI) | payer OTHER, SELFPAY | PROVIDERS: PCP Nurse Practitioner Family; Visit Provider Surgery | DX: Z11.52 Encounter for screening for COVID-19 (principal) | CPT/HCPCS: C9803; U0003; U0005 ==

== ENCOUNTER 2021-09-18 08:01 | Day surgery (SDC) | payer OTHER, SELFPAY ==
[2021-09-17 11:46] VITALS: BMI 34.2
--- NOTE | 2021-09-18 08:17 | P.PN_ITS ---
[facility] Anesthesia Checklist - Patient Identification Patient Identification: Arm Band - Structural Data Admitted From: Home Planned Operative Procedure/s: Colonoscopy Consent for Planned Operative Procedure(s) Verified: Yes - NPO Status Verified Time NPO: 03:00 (Prep) - Airway Assessment C-Spine Mobility Assessed: Yes TMJ Mobility Assessed: Yes Dentition: Poor Dentition (Very small mouth opening) - Neurological Assessment Level of Consciousness: Awake Hx Seizures: No - Anesthesia Plan Anesthesia Risk discussed: Yes Anesthesia Plan: Verified ASA Class: II Anesthesia Type: MAC [facility] History I have reviewed the patient's past medical history: Yes Medical History: Reports:: Anxiety, Depression Denies:: Cancer, Diabetes Mellitus Type 1, Diabetes Mellitus Type 2, Internal Pacemaker, MRSA, Seizures *Have you ever received a pneumonia vaccine?: No *Have you received a flu vaccine this season?: No Anesthesia experience/problems:: None Laterality Cases: Bilateral: Tonsillectomy Other Surgeries: Yes: Colonoscopy, Other. No: Pacemaker Amputation: No Fractures: No - *Social History Last grade of school completed: High school graduate Smoking Status: Never smoker Alcohol Intake: never Substance Use Type: denies use *Occupational Status:: unemployed Housing: apartment Household Members: spouse, significant other *Travel in the last 8 weeks: None Family Hx:: No significant family history
[2021-09-18 08:21] VITALS: BP 128/80; PULSE 80; RESP 18; TEMP 36.8; O2SAT 97
[2021-09-18 09:22] VITALS: O2SAT 97
--- NOTE | 2021-09-18 09:52 | HMH.SCOPE ---
- Procedure: Date: 09/18/21 Patient Date of :: 1970 Procedure Performed:: Colonoscopy with polypectomy Indications:: History of colon polyps Colonoscopy in October 2020 revealed cluster of adenomatous polyps in the transverse colon. Area tattooed for future reference. Performing Provider:: Chapin Acosta MD Referring Provider:: . Sedation:: Monitored anesthesia care Procedure:: After informed consent was obtained the patient was taken to the endoscopy suite. Sedation ensued after the patient was transferred to the left lateral decubitus position. Pulse, blood pressure, and oxygen saturation were monitored throughout the procedure. Digital rectal exam revealed no significant abnormality. The colonoscope was placed in position. The entire colon was evaluated. The colonoscope was carefully removed and the patient was transferred to recovery in stable condition. Please see findings and specimens below for detail. Findings:: Bowel preparation moderate to poor Fairly severe tortuosity/lack of relaxation Mild hemorrhoidal cushions Small sessile polyps at margin of proximal transverse colon tattoo Specimens:: Sessile polyps at margin of proximal transverse colon tattoo (cold biopsy forceps) Recommendations:: Timing of repeat colonoscopy is pending pathology but likely be around 1-2 years secondary to history of significant polyps, tortuosity, spasticity, and somewhat limited bowel prep. Complications:: No immediate Estimated blood obtained (mL): 1
[2021-09-18 09:55] VITALS: BP 130/67; PULSE 89; RESP 16; TEMP 36.4; O2SAT 92
[2021-09-18 10:05] VITALS: BP 106/74; PULSE 70; RESP 16; TEMP 36.4; O2SAT 94
[2021-09-18 10:15] VITALS: BP 113/72; PULSE 72; RESP 18; TEMP 36.4; O2SAT 98
[2021-09-18 10:30] VITALS: BP 126/56; PULSE 72; RESP 16; TEMP 36.4; O2SAT 100
== END 2021-09-18 10:30 | disposition home or self-care (01) ==
LOC: OUTP 08:02
PROVIDERS: PCP Nurse Practitioner Family; Visit Provider Surgery
PROC: 0DJD8ZZ Inspection of Lower Intestinal Tract, Via Natural or Artificial Opening Endoscopic (ICD-10-PCS; CPT 45380; principal; 2021-09-18 09:30)
DX: Z12.11 Encounter for screening for malignant neoplasm of colon (principal); Z86.010 Personal history of colon polyps; K64.9 Unspecified hemorrhoids; K63.5 Polyp of colon; K56.2 Volvulus; F41.9 Anxiety disorder, unspecified; F32.A Depression, unspecified; Z88.8 Allergy status to other drugs, medicaments and biological substances; Z79.899 Other long term (current) drug therapy
CPT/HCPCS: 45380

== ENCOUNTER → 2022-01-11 08:09 | Outpatient (CLI) | payer OTHER, SELFPAY ==
--- NOTE | 2022-01-11 08:13 | MM_ITS ---
PROCEDURE INFORMATION: Exam: MG Bilateral Screening 3D Mammography Exam date and time: 01/11/2022 8:14 AM Age: 51 years old Clinical indication: Screening examination TECHNIQUE: Imaging protocol: Bilateral Screening tomosynthesis and 2D mammography including computer-aided detection (CAD) when performed. COMPARISON: 1. MG MM DIG SCREENING MAMM BI W/CAD 01/10/2021 9:57 AM 2. MG MM DIG SCREENING MAMM BI W/CAD 01/10/2020 8:53 AM FINDINGS: MAMMOGRAPHY: Breast composition: There are scattered areas of fibroglandular density. Mass: None. Architectural distortion: None. Calcifications: No suspicious calcifications. Asymmetric density: None. Skin thickening: None. Axillary adenopathy: None. IMPRESSION: No mammographic evidence of malignancy. Annual screening is recommended unless otherwise clinically indicated. ASSESSMENT: BI-RADS Category 1: Negative
== END ==
PROVIDERS: PCP Nurse Practitioner Family; Visit Provider Nurse Practitioner Family
DX: Z12.31 Encounter for screening mammogram for malignant neoplasm of breast (principal)
CPT/HCPCS: 77063; 77067

== ENCOUNTER → 2022-01-31 13:25 | Outpatient (CLI) | payer OTHER, SELFPAY ==
--- NOTE | 2022-01-31 13:29 | XR_ITS ---
FINAL REPORT CLINICAL HISTORY: LUMBAR BACK PAIN FINDINGS: 5 views of the lumbar spine were obtained. There is no evidence of fracture or dislocation. There is mild anterolisthesis of L4 on L5. There are mild and moderate degenerative changes with osteophytes. There appears to be right abdomen mass on some of the images. There is a possible right renal stone or other right abdomen calcification. IMPRESSION: Mild and moderate degenerative changes. Apparent right abdomen mass and possible right renal stone or other right abdomen calcification. If indicated CT may be helpful. Reviewed, Interpreted and Dictated by Rahul Chavez III, MD Transcribed by Tito Dangelo Authenticated and [facility]
== END ==
PROVIDERS: PCP Nurse Practitioner Family; Visit Provider Nurse Practitioner Family
DX: M54.50 Low back pain, unspecified (principal)
CPT/HCPCS: 72110

== ENCOUNTER 2022-06-07 20:24 | Emergency (ER) | payer OTHER, SELFPAY ==
[2022-06-07 20:26] VITALS: BP 131/70; PULSE 86; RESP 16; TEMP 36.6; O2SAT 99; BMI 33.9
[2022-06-07 20:38] VITALS: BMI 33.9
--- NOTE | 2022-06-07 20:38 | CT_ITS ---
PROCEDURE INFORMATION: Exam: CT Abdomen And Pelvis With Contrast Exam date and time: 06/07/2022 10:03 PM Age: 52 years old Clinical indication: Abdominal pain; Additional info: Checking on mass TECHNIQUE: Imaging protocol: Computed tomography of the abdomen and pelvis with contrast. Radiation optimization: All CT scans at this facility use at least one of these dose optimization techniques: automated exposure control; mA and/or kV adjustment per patient size (includes targeted exams where dose is matched to clinical indication); or iterative reconstruction. Contrast material: ISOVUE; Contrast volume: 75 ml; Contrast route: IV; COMPARISON: CR XR LUMBAR SPINE MIN 4V 01/31/2022 1:36 PM FINDINGS: Liver: There is fatty infiltration of the liver. Gallbladder and bile ducts: The patient is status post cholecystectomy. Pancreas: There is a calcified cystic mass located in the root of the mesentery in appears to abut the pancreatic neck measuring 2.4 x 2.1 x 3.1 cm. Spleen: Normal. No splenomegaly. Adrenal glands: Normal. No mass. Kidneys and ureters: Normal. No hydronephrosis. Stomach and bowel: There is no bowel obstruction. There is mild diverticulosis without evidence of diverticulitis. Appendix: No evidence of appendicitis. Intraperitoneal space: Unremarkable. No free air. No significant fluid collection. Vasculature: Unremarkable. No abdominal aortic aneurysm. Lymph nodes: Unremarkable. No enlarged lymph nodes. Urinary bladder: Unremarkable as visualized. Reproductive: Unremarkable as visualized. Bones/joints: Unremarkable. No acute fracture. Soft tissues: Unremarkable. IMPRESSION: 1. No evidence of acute process. 2. Benign-appearing calcified cystic mass in the root of the mesentery. 3. Mild diverticulosis. 4. Hepatic steatosis.
[2022-06-07 20:46] VITALS: BP 111/65; PULSE 71; O2SAT 98
--- NOTE | 2022-06-07 21:12 | HMH.EDRECH ---
Discharge Plan Disposition Patient Disposition: Home, Self-Care Chief Complaint: Recheck/Abnormal Lab/Rx Prescriptions Prescriptions: No Action citalopram 20 MG tablet 20 mg PO DAILY buspirone 10 MG tablet 10 mg PO BID folic acid 20 MG capsule 20 mg PO DAILY cyanocobalamin (vitamin B-12) 1,000 MCG tablet 1,000 mcg PO DAILY cholecalciferol (vitamin D3) 1,000 UNIT capsule 1,000 unit PO DAILY omega-3 fatty acids-fish oil 1 EACH capsule 1 each PO DAILY Referrals Follow up/Referrals: Jose Yepez APRN [Primary Care Provider] - See instructions Clinical Impressions Clinical Impression: Pancreas cyst Instructions Patient Instructions: DI for Abdominal Pain-Adult Discharge ED Provider: Fabricio Cole HPI General Chief Complaint: Recheck/Abnormal Lab/Rx Stated Complaint: Mass on stomach Time Seen by Provider: 06/07/22 21:13 Mode of Arrival: Ambulatory Source of Information: Patient and Medical Record Limitations: No Limitations Description of Symptoms (Recalled from ER Triage Doc. by RN): pt here for evaluation of pancriatic mass initally found in jan History of Present Illness HPI narrative: pt with upper abd pain with hx of prev abn ct of abd MD complaint: other (abd pain ) Initial visit (ago): day(s) Associated symptoms: abdominal pain Related Data Home Medications Medication Instructions Recorded Confirmed buspirone 10 mg tablet 10 mg PO BID Anxiety 12/03/19 09/26/21 citalopram 20 mg tablet 20 mg PO DAILY Anxiety 12/03/19 09/26/21 cholecalciferol (vitamin D3) 25 1,000 unit PO DAILY Supplement 09/17/21 09/26/21 mcg (1,000 unit) capsule cyanocobalamin (vitamin B-12) 1,000 mcg PO DAILY Supplement 09/17/21 09/26/21 1,000 mcg tablet folic acid 20 mg capsule 20 mg PO DAILY Supplement 09/17/21 09/26/21 omega-3 fatty acids-fish oil 340 1 each PO DAILY Supplement 09/17/21 09/26/21 mg-1,000 mg capsule Allergies Allergy/AdvReac Type Severity Reaction Status Date / Time pseudoephedrine Allergy Verified 09/26/21 09:54 [From [facility]] [facility] Disclaimer: The information contained in this section may have been updated after the patient was seen, as this information can be updated by other users. Social History Smoking Status: Never smoker alcohol intake: never substance use type: denies use current occupational status: unemployed Travel in the last 8 weeks: None household members: spouse and significant other housing: apartment current occupational exposures/hazards: No caffeine: Yes ROS Obtained: Yes All systems reviewed & no additional complaints except as documented Physical Exam General General appearance: alert and obese Head Head exam: normocephalic Eye Eye exam: Present PERRL and EOMI ENT ENT exam: Present mucous membranes moist Neck Neck exam: Present trachea midline Respiratory Respiratory exam: Absent respiratory distress Cardiovascular Cardiovascular exam: Present regular rate Abdominal Exam Abdominal exam: Present soft and tenderness; Absent guarding, rebound or rigidity Extremities Exam Extremities exam: Present full ROM Neurological Exam Neurological exam: Present alert, oriented X3 and CN II-XII intact; Absent motor sensory deficit Psychiatric Psychiatric exam: Present normal affect Skin Skin exam: Absent rash Medical Decision Making Medical Records Medical records reviewed: Yes I reviewed the patient's medical records. Jatin Inquiry Pt receiving controlled substance: No Vital Signs: 06/07/22 20:26 06/07/22 20:46 Temperature 97.9 F Temperature Source Oral Pulse Rate 71 Pulse Rate [Left Radial] 86 Respiratory Rate 16 Blood Pressure 111/65 Blood Pressure [Right Arm] 131/70 Blood Pressure Mean [Right Arm] 90 02 Sat by Pulse Oximetry 99 98 Oxygen Delivery Method Room Air Lab Data Lab results reviewed: Yes I reviewed the patient's lab results.
[2022-06-07 21:39] LABS: Basophils % 0.7 % (0.1-2.0); Eosinophils # 0.1 K/mm3 (0.0-0.4); Hematocrit 40.4 % (37.0-47.0); Hemoglobin 13.1 g/dL (12.2-16.2); Lymphocytes # 1.8 K/mm3 (0.7-4.5); Lymphocytes % 29.2 % (10-50); Mean Corpuscular HGB Conc 32.4 g/dL (31.8-35.4); Mean Corpuscular Hemoglobin 29.6 pg (27.0-31.2); Mean Corpuscular Volume 91.3 fl (81-99); Mean Platelet Volume 9.2 fl (7.4-10.4); Monocytes # 0.3 K/mm3 (0.1-1.0); Monocytes % 4.4 % (1.7-9.3); Neutrophils # 3.9 K/mm3 (1.8-7.8); Neutrophils % 63.8 % (37.0-80.0); Platelet Count 217 K/mm3 (142-424); Red Blood Count 4.42 M/mm3 (4.20-5.40); Red Cell Distribution Width 14.8 % (11.5-17.5); White Blood Count 6.1 K/mm3 (4.8-10.8)
[2022-06-07 21:43] LABS: Chloride 101 mmol/L (98-107); Sodium 138 mmol/L (136-145)
[2022-06-07 21:44] LABS: Potassium 3.8 mmoL/L (3.5-5.1)
[2022-06-07 21:46] LABS: Alanine Aminotransferase 35 U/L (12-78); Amylase 48 U/L (30-110); Anion Gap 10.8 mEq/L (5-15); Aspartate Amino Transferase 33 U/L (14-36); Blood Urea Nitrogen 11 mg/dl (7-17); Carbon Dioxide 30 mmol/L (22.0-30.0); Creatinine Clearance Estimated 90 mL/min (50-200); Estimated Glomerular Filt Rate 52 ml/min (>60); GFR (African American) 63 ML/MIN (>60)
[2022-06-07 21:47] LABS: Albumin Level 4.2 g/dl (3.5-5.0); Albumin/Globulin Ratio 1.4 (1.1-1.8); Alkaline Phosphatase 81 U/L (38-126); Bilirubin,Total 0.4 mg/dl (0.2-1.3); Glucose 115 mg/dl (74-100); Lipase 105 U/L (23-300); Total Protein,Serum 7.2 g/dl (6.3-8.2)
[2022-06-07 21:52] LABS: C-Reactive Protein 8.1 mg/L (0-4)
--- NOTE | 2022-06-07 21:58 | PC.NURSE ---
pt gone to CT @ this time.
--- NOTE | 2022-06-07 22:08 | PC.NURSE ---
pt back from CT @ this time.
[2022-06-07 22:18] LABS: Erythrocyte Sedimentation Rate 29 mm/hr (0-30)
[2022-06-07 22:20] LABS: Procalcitonin 0.069 ng/mL (0.0-2.0)
[2022-06-07 23:24] VITALS: BP 111/65; BP 121/64; PULSE 69; RESP 16; TEMP 36.6; O2SAT 98
== END 2022-06-07 23:35 | disposition home or self-care (01) ==
PROVIDERS: Emergency Provider Emergency Medicine; PCP Nurse Practitioner Family
DX: K86.2 Cyst of pancreas (principal)
CPT/HCPCS: 74177; 80053; 82150; 83690; 84145; 85025; 85651; 86140; 99285; Q9967

== ENCOUNTER → 2023-01-13 09:31 | Outpatient (CLI) | payer OTHER, SELFPAY ==
--- NOTE | 2023-01-13 09:36 | MM_ITS ---
PROCEDURE INFORMATION: Exam: MG Bilateral Screening 3D Mammography Exam date and time: 01/13/2023 9:34 AM Age: 52 years old Clinical indication: Screening mammogram TECHNIQUE: Imaging protocol: Bilateral Screening tomosynthesis and 2D mammography including computer-aided detection (CAD) when performed. COMPARISON: 1. MG MM DIG SCREENING MAMM BI W/CAD 01/11/2022 8:14 AM 2. MG MM DIG SCREENING MAMM BI W/CAD 01/10/2021 9:57 AM 3. MG MM DIG SCREENING MAMM BI W/CAD 01/10/2020 8:53 AM 4. MG MM DIG SCREENING MAMM BI W/CAD 01/06/2019 11:09 AM FINDINGS: MAMMOGRAPHY: Breast composition: There are scattered areas of fibroglandular density. Mass: None. Architectural distortion: No new or suspicious architectural distortion. Calcifications: No new or suspicious calcifications are present Asymmetric density: No new or suspicious asymmetric density is present Skin thickening: None. Axillary adenopathy: None. IMPRESSION: No mammographic evidence of malignancy. Recommend annual screening mammography unless otherwise clinically indicated. ASSESSMENT: BI-RADS category 1: Negative
== END ==
PROVIDERS: PCP Nurse Practitioner Family; Visit Provider Nurse Practitioner Family
DX: Z12.31 Encounter for screening mammogram for malignant neoplasm of breast (principal)
CPT/HCPCS: 77063; 77067

== ENCOUNTER 2023-10-08 11:35 | Emergency (ER) | payer OTHER, SELFPAY ==
[2023-10-08 11:41] VITALS: BMI 30.4
--- NOTE | 2023-10-08 11:41 | XR_ITS ---
FINAL REPORT CLINICAL HISTORY: fall x1 month ago, left hip pain FINDINGS: Left hip Three views were obtained. There is no acute fracture or dislocation. Mild degenerative changes are present. There is bony overgrowth in the superior acetabulum bilaterally worrisome for pincer type femoral acetabular impingement. No soft tissue abnormality is identified. IMPRESSION: Findings worrisome for pincer type femoral acetabular impingement bilaterally. Reviewed, Interpreted and Dictated by Rahul Chavez III, MD Transcribed by Serena Chatterjee Authenticated and [facility]
[2023-10-08 11:50] VITALS: BP 114/70; PULSE 92; RESP 20; TEMP 36.8; O2SAT 97; BMI 36.1
--- NOTE | 2023-10-08 12:00 | ED_ITS ---
Discharge Plan Disposition Patient Disposition: Home, Self-Care Condition: Good Prescriptions Prescriptions: No Action folic acid 400 mcg tablet 400 mcg PO DAILY citalopram 40 mg tablet 40 mg PO DAILY pantoprazole 40 mg tablet,delayed release (DR/EC) 40 mg PO DAILY Patient Comments: TAKE 1 TABLET BY MOUTH ONCE DAILY DIRECTED meloxicam 15 mg tablet 15 mg PO DAILY Patient Comments: TAKE 1 TABLET BY MOUTH ONCE DAILY atorvastatin 20 mg tablet 20 mg PO DAILY Patient Comments: TAKE 1 TABLET BY MOUTH ONCE DAILY buspirone 10 MG tablet 10 mg PO BID Referrals Follow up/Referrals: Ferdinand Brown DO [Staff Physician] - See instructions (call office for appointment) Jose Yepez APRN [Primary Care Provider] - See instructions Activity Restrictions/Add. Instructions Additional Instructions/Restrictions: Follow up with your Family Doctor or Orthopedics if symptoms continue or get worse Over the counter Motrin and/or Tylenol for pain if you can take it Return if needed Clinical Impressions Clinical Impression: Hip pain Instructions Patient Instructions: DI for Hip Pain Discharge ED Provider: Kasie Acevedo [facility] [place] General Stated complaint: fell month age, inj left hip Mode of Arrival: Ambulatory Source of Information: Patient Limitations: No Limitations Time Seen by Provider: 10/08/23 12:00 Description of Symptoms (Recalled from Triage Doc. by RN): PATIENT STATES THAT APPROX 1 MONTH AGO SHE SLIPPED AND FELL WHILE GOING UP METAL STEPS AND HIT HER LEFT HIP ON A STEP. SHE STATES INITIALLY THERE WAS A BRUISE TO HER HIP AND REPORTS SHE IS STILL HAVING PAIN HEENT Symptoms (Recalled from RN notes): No Resp Symptoms (Recalled from RN notes): No Skin Symptoms (Recalled from RN notes): No MS Symptoms (Recalled from RN notes): Yes Functional Status (Recalled from RN notes): WNL History of Present Illness Provider Complaint: Patient states that about a month ago it was raining and she was going up the steps at her house when she slipped and fell and landed on her left hip area on the step States she initially had some bruising but she thought it would go away States that the bruising went away but she is still having pain in her left hip on and off so today when it was still hurting her she came in to get it checked Related Data Home Medications Medication Instructions Recorded Confirmed buspirone 10 mg tablet 10 mg PO BID Anxiety 12/03/19 10/08/23 citalopram 40 mg tablet 40 mg PO DAILY 12/31/22 10/08/23 folic acid 400 mcg tablet 400 mcg PO DAILY 12/31/22 10/08/23 meloxicam 15 mg tablet 15 mg PO DAILY 08/19/23 10/08/23 pantoprazole 40 mg tablet,delayed 40 mg PO DAILY 08/19/23 10/08/23 release atorvastatin 20 mg tablet 20 mg PO DAILY 10/08/23 10/08/23 Allergies Allergy/AdvReac Type Severity Reaction Status Date / Time pseudoephedrine Allergy Verified 08/19/23 14:23 [From [facility]] Worker's Comp Is this a Worker's Comp case?: No [facility] Disclaimer: The information contained in this section may have been updated after the patient was seen, as this information can be updated by other users. Medical History (Updated 10/08/23 @ 13:41 by Kasie Acevedo APRN) Hypertension Hyperlipidemia Pancreas cyst Tenderness of chest wall Bee sting Allergic reaction Periorbital cellulitis Surgical History (Updated 10/08/23 @ 11:58 by Vanessa Love RN) History of cholecystectomy History of tonsillectomy No significant past surgical history Family History (Updated 08/19/23 @ 14:25 by Neo Magallanes) Other No significant family history Social History Smoking Status: Never smoker alcohol intake: never substance use type: denies use current occupational status: unemployed Travel in the last 8 weeks: None household members: spouse and significant other housing: apartment current occupational exposures/hazards: No caffeine: Yes ROS Obtained: Yes All systems reviewed & no additional complaints except as documented and Yes Systems reviewed as appropriate & no additional complaints except as documented Constitutional Constitutional: Reports system reviewed and no additional complaints, except as documented and Reports as per HPI ENT Ears, Nose, Mouth, and Throat: Reports system reviewed and no additional complaints, except as documented and Reports as per HPI Cardiovascular Cardiovascular: Reports system reviewed and no additional complaints, except as documented and Reports as per HPI Respiratory Respiratory: Reports system reviewed and no additional complaints, except as documented and Reports as per HPI Gastrointestinal Gastrointestingal: Reports system reviewed and no additional complaints, except as documented and as per HPI Musculoskeletal Musculoskeletal: Reports system reviewed and no additional complaints, except as documented, Reports as per HPI and Reports other (Pain in left hip x 1 month after falling 1month ago) Physical Exam General General appearance: alert and in no apparent distress ENT ENT exam: Present mucous membranes moist Respiratory Respiratory exam: Present normal lung sounds bilaterally; Absent respiratory distress or wheezes Cardiovascular Cardiovascular exam: Present regular rate, normal rhythm and normal heart sounds Expanded Lower Extremity Exam Left: Hip/Pelvis exam: Present tenderness and pelvis stable; Absent swelling, ecchymosis, deformity, dislocation, external rotation, internal rotation, shortening of leg, erythema or crepitus Upper leg exam: Present normal inspection Knee exam: Present normal inspection Lower leg exam: Present normal inspection Ankle exam: Present normal inspection Foot/toe exam: Present normal inspection Neurological Exam Neurological exam: Present alert, oriented X3 and normal gait Medical Decision Making Jatin Inquiry Pt receiving controlled substance: No Jatin was queried for this patient: No Vital Signs: 10/08/23 11:50 Temperature 98.3 F Temperature Source Oral Pulse Rate [Left Brachial] 92 H Respiratory Rate 20 Blood Pressure [Left Arm] 114/70 Blood Pressure Mean [Left Arm] 84 Blood Pressure Source [Left Arm] Automatic Cuff Blood Pressure Position [Left Arm] Sitting 02 Sat by Pulse Oximetry 97 Oxygen Delivery Method Room Air Orders (Tests/Meds): ORDERS Category Date Time Status Hip XR left minimum 2 views [XR hip LT 2-3V w/pelvis] Exams 10/08/23 11:41 Taken Stat Radiology Data #1: Image(s): Hip Image Reviewed: Yes I have reviewed radiologist's interpretation Findings worrisome for pincer type femoral acetabular impingement bilaterally
[2023-10-08 13:42] VITALS: BP 114/70; PULSE 92; RESP 20; TEMP 36.8; O2SAT 97
== END 2023-10-08 13:43 | disposition home or self-care (01) ==
PROVIDERS: Emergency Provider Nurse Practitioner; PCP Nurse Practitioner Family
DX: M25.552 Pain in left hip (principal); R93.7 Abnormal findings on diagnostic imaging of other parts of musculoskeletal system; W10.8XXA Fall (on) (from) other stairs and steps, initial encounter
CPT/HCPCS: 73502; 99212; 99214; G0463

== ENCOUNTER 2024-01-20 09:22 | Outpatient (CLI) | payer OTHER, SELFPAY ==
--- NOTE | 2024-01-20 09:28 | MM_ITS ---
PROCEDURE INFORMATION: Exam: MG Bilateral Screening 3D Mammography Exam date and time: 01/20/2024 9:20 AM Age: 53 years old Clinical indication: Screening examination TECHNIQUE: Imaging protocol: Bilateral Screening tomosynthesis and 2D mammography including computer-aided detection (CAD) when performed. COMPARISON: 1. MG MM DIG SCREENING MAMM BI W/CAD 01/13/2023 9:34 AM 2. MG MM DIG SCREENING MAMM BI W/CAD 01/11/2022 8:14 AM FINDINGS: MAMMOGRAPHY: Breast composition: There are scattered areas of fibroglandular density. Mass: None. Architectural distortion: None. Calcifications: No suspicious calcifications. Asymmetric density: None. Skin thickening: None. Axillary adenopathy: None. IMPRESSION: No mammographic evidence of malignancy. Annual screening is recommended unless otherwise clinically indicated. ASSESSMENT: BI-RADS Category 1: Negative
== END 2024-01-20 23:59 | disposition home or self-care (01) ==
LOC: RAD 09:22
PROVIDERS: PCP Nurse Practitioner Family; Visit Provider Nurse Practitioner Family
DX: Z12.31 Encounter for screening mammogram for malignant neoplasm of breast (principal)
CPT/HCPCS: 77063; 77067

== ENCOUNTER 2024-02-03 06:20 | Day surgery (SDC) | payer OTHER, SELFPAY ==
[2024-01-29 10:07] VITALS: BMI 34.3
[2024-02-03 06:52] VITALS: BP 117/85; PULSE 83; RESP 18; TEMP 37; O2SAT 98
--- NOTE | 2024-02-03 07:17 | P.PCN_ITS ---
Procedure: Date: 02/03/24 Patient Date of :: 1970 Procedure Performed:: Colonoscopy Indications:: History of colon polyps Note: Most recent colonoscopy in August 2021 was complicated by moderate for edith wel preparation, severe tortuosity, and poor relaxation. Known hemorrhoids confirmed. A small adenoma at tattoo margin and proximal transverse colon excised. Prior colonoscopy in October 2020 significant for cluster of adenomas in the transverse colon. Performing Provider:: Chapin Acosta MD Referring Provider:: . Sedation:: Monitored anesthesia care Procedure:: After informed consent was obtained the patient was taken to the endoscopy suite. Sedation ensued after the patient was transferred to the left lateral decubitus position. Pulse, blood pressure, and oxygen saturation were monitored throughout the procedure. Digital rectal exam revealed no significant abnormality. The colonoscope was placed in position. The entire colon was evaluated. The colonoscope was carefully removed and the patient was transferred to recovery in stable condition. Please see findings and specimens below for detail. Findings:: Bowel preparation moderate Moderate spasticity/electrical activation No obvious lesion/abnormality in/around tattooed region (transverse colon) Specimens:: none Recommendations:: Repeat colonoscopy in 3 years secondary to history of multiple complex polyps Complications:: no immediate Estimated blood obtained (mL): 0 Colonoscopy Component Colonoscopy Component Was a colonoscopy performed during today's procedure?: Yes Recommended follow up colonoscopy of at least 10 years?: No If no, follow up colonoscopy recommended in ___ years?: (See above) Reason for not recommending >/= 10 yr follow-up interval?: (See above)
--- NOTE | 2024-02-03 07:20 | EXP.ANES.CKL ---
[facility] Disclaimer: The information contained in this section may have been updated after the patient was seen, as this information can be updated by other users. Medical History Hypertension Hyperlipidemia Pancreas cyst Tenderness of chest wall Bee sting Allergic reaction Periorbital cellulitis Surgical History History of cholecystectomy History of tonsillectomy Family History Other No significant family history Social History Smoking Status: Never smoker alcohol intake: never substance use type: denies use current occupational status: unemployed Travel in the last 8 weeks: None household members: spouse and significant other housing: apartment current occupational exposures/hazards: No caffeine: Yes [facility] Anesthesia Checklist Patient Identification Patient Identification: Arm Band Structural Data Admitted From: Home Planned Operative Procedure/s: Colonoscopy Consent for Planned Operative Procedure(s) Verified: Yes Verified Documents: Surgical Consent and History and Physical NPO Status Verified Time NPO: 00:00 Additional verifications Anesthesia Reactions: No Airway Assessment Mallampati Score:: Class II C-Spine Mobility Assessed: Yes TMJ Mobility Assessed: Yes Dentition: Good Dentition Neurological Assessment Level of Consciousness: Awake, Alert and Appropriate Anesthesia Plan Anesthesia Risk discussed: Yes Anesthesia Plan: Verified ASA Class: II Anesthesia Type: MAC
[2024-02-03 07:27] VITALS: O2SAT 98
[2024-02-03 07:57] VITALS: BP 113/66; PULSE 61; RESP 19; TEMP 36.3; O2SAT 93
[2024-02-03 08:07] VITALS: BP 104/64; PULSE 80; RESP 18; O2SAT 97
[2024-02-03 08:17] VITALS: BP 111/65; PULSE 77; RESP 16; O2SAT 97
[2024-02-03 08:27] VITALS: BP 112/67; PULSE 75; RESP 16; TEMP 36.6; O2SAT 98
== END 2024-02-03 08:35 | disposition home or self-care (01) ==
PROVIDERS: PCP Nurse Practitioner Family; Visit Provider Surgery
PROC: 0DJD8ZZ Inspection of Lower Intestinal Tract, Via Natural or Artificial Opening Endoscopic (ICD-10-PCS; CPT 45378; principal; 2024-02-03 07:30)
DX: Z86.010 Personal history of colon polyps (principal)
CPT/HCPCS: 45378; J7120

== ENCOUNTER 2024-03-14 17:13 | Emergency (ER) | payer OTHER, SELFPAY ==
--- NOTE | 2024-03-14 17:17 | ED_ITS ---
Discharge Plan Disposition Patient Disposition: Home, Self-Care Condition: Fair Prescriptions Prescriptions: New doxycycline hyclate 100 mg capsule 100 mg PO BID 7 Days Qty: 14 0RF No Action folic acid 400 mcg tablet 400 mcg PO DAILY citalopram 40 mg tablet 40 mg PO DAILY pantoprazole 40 mg tablet,delayed release (DR/EC) 40 mg PO DAILY Patient Comments: TAKE 1 TABLET BY MOUTH ONCE DAILY DIRECTED atorvastatin 20 mg tablet 20 mg PO DAILY Patient Comments: TAKE 1 TABLET BY MOUTH ONCE DAILY buspirone 10 MG tablet 10 mg PO BID Referrals Follow up/Referrals: Duc Man MD [Physician] - See instructions Jose Yepez APRN [Primary Care Provider] - See instructions Activity Restrictions/Add. Instructions Additional Instructions/Restrictions: I have referred you to ear nose and throat for further evaluation. Please follow-up with your PCP for recheck. Return to ER for any worsening signs or symptoms as needed Clinical Impressions Clinical Impression: Facial swelling Print Language Print Language: Swazi Discharge ED Provider: Srikanth Zambrano General Adult HPI <JOSE JUAN Castellano - Last Filed: 03/14/24 22:44> General Chief complaint: Skin/Abscess/Foreign Body Stated complaint: swollen face Time Seen by Provider: 03/14/24 17:17 History of Present Illness HPI narrative: Patient presents for evaluation of face swelling. Patient reports that she has had face swelling for the last 3 weeks. She has not noticed it particularly but feels it more when she bends over. She denies any fever chills hemoptysis hematochezia melena nausea vomiting diarrhea headache congestion recent illness. 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 Related Data Home Medications ?Medication ?Instructions ?Recorded ?Confirmed buspirone 10 mg tablet 10 mg PO BID Anxiety 12/03/19 02/03/24 citalopram 40 mg tablet 40 mg PO DAILY 12/31/22 02/03/24 folic acid 400 mcg tablet 400 mcg PO DAILY 12/31/22 02/03/24 pantoprazole 40 mg tablet,delayed 40 mg PO DAILY 08/19/23 02/03/24 release atorvastatin 20 mg tablet 20 mg PO DAILY 10/08/23 02/03/24 Previous Rx's ?Medication ?Instructions ?Recorded doxycycline hyclate 100 mg capsule 100 mg PO BID 7 days #14 caps 03/14/24 Allergies Allergy/AdvReac Type Severity Reaction Status Date / Time pseudoephedrine Allergy Verified 02/03/24 06:50 [From [facility]] [facility] <JOSE JUAN Castellano - Last Filed: 03/14/24 22:44> [facility] Disclaimer: The information contained in this section may have been updated after the patient was seen, as this information can be updated by other users. Medical History (Updated 03/14/24 @ 19:33 by JOSE JUAN Castellano) Hypertension Hyperlipidemia Pancreas cyst Tenderness of chest wall Bee sting Allergic reaction Periorbital cellulitis Surgical History History of cholecystectomy History of tonsillectomy Family History Other No significant family history Social History Smoking Status: Never smoker alcohol intake: never substance use type: denies use current occupational status: unemployed Travel in the last 8 weeks: None household members: spouse and significant other housing: apartment current occupational exposures/hazards: No caffeine: Yes Other Medical History Have you received the Flu Vaccine for this season: No Have you received the Pneumonia Vaccine: No <JOSE JUAN Castellano - Last Filed: 03/14/24 22:44> ROS Obtained: Yes Systems reviewed as appropriate & no additional complaints except as documented Physical Exam <JOSE JUAN Castellano - Last Filed: 03/14/24 22:44> General General appearance: alert and in no apparent distress Respiratory Respiratory exam: Present normal lung sounds bilaterally Cardiovascular Cardiovascular exam: Present regular rate Neurological Exam Neurological exam: Present alert and oriented X3 Medical Decision Making <JOSE JUAN Castellano - Last Filed: 03/14/24 22:44> Medical Records Medical records reviewed: Yes I reviewed the patient's medical records. Screening: Per USPSTF and CDC recommendations, given the prevalence of disease in our region, it is our hospital?s policy to screen for HIV and viral Hepatitis for all patients aged 18 and over and those with ongoing risk factors. Jatin Inquiry Pt receiving controlled substance: No Vital Signs: 03/14/24 17:18 03/14/24 17:22 03/14/24 18:00 Temperature 98.3 F Temperature Source Oral Pulse Rate 95 H 89 Pulse Rate [Left Radial] 95 H Respiratory Rate 14 Blood Pressure 119/83 113/75 Blood Pressure [Right Arm] 119/83 Blood Pressure Mean [Right Arm] 95 Blood Pressure Source Blood Pressure Position 02 Sat by Pulse Oximetry 96 96 96 Oxygen Delivery Method Room Air Room Air 03/14/24 18:30 03/14/24 19:37 Temperature 97.9 F Temperature Source Oral Pulse Rate 86 90 Pulse Rate [Left Radial] Respiratory Rate 18 Blood Pressure 135/78 135/76 Blood Pressure [Right Arm] Blood Pressure Mean [Right Arm] Blood Pressure Source Automatic Cuff Blood Pressure Position Supine 02 Sat by Pulse Oximetry 98 Oxygen Delivery Method Room Air Lab Data Lab results reviewed: Yes I reviewed the patient's lab results. Lab Results 03/14/24 17:30: WBC 6.4, RBC 4.25, Hgb 12.7, Hct 37.0, MCV 87.0, MCH 29.9, MCHC 34.3, RDW 15.5, Plt Count 193, MPV 9.0, Neut % (Auto) 71.1, Lymph % (Auto) 21.8, [place] % (Auto) 4.7, Eos % (Auto) 1.8, Baso % (Auto) 0.6, Neut # (Auto) 4.6, Lymph # (Auto) 1.4, [place] # (Auto) 0.3, Eos # (Auto) 0.1, Baso # (Auto) 0.0, ESR 26, Sodium 138, Potassium 4.1, Chloride 107, Carbon Dioxide 26, Anion Gap 9.1, BUN 18 H, Creatinine 1.40 H, Estimated Creat Clear 70, Estimated GFR 39 L, Est GFR ( Amer) 48 L, Glucose 101 H, Calcium 9.4, Total Bilirubin 0.5, AST 24, ALT 24, Alkaline Phosphatase 100, C-Reactive Protein 9.6 H, Total Protein 7.0, Albumin 4.1, Globulin 2.9, Albumin/Globulin Ratio 1.4, HIV 1&2 Antibody Rapid Nonreactive 03/14/24 17:30 03/14/24 17:30 Orders (Tests/Meds): ED MEDICATIONS Discontinued Medications Generic Name Dose Route Start Last Admin Trade Name Freq PRN Reason Stop Dose Admin Doxycycline Hyclate 100 mg 03/14/24 19:33 03/14/24 19:37 Doxycycline Hycl 100 Mg Tablet PO 03/14/24 19:34 100 mg ONCE ONE Administration Sodium Chloride 10 ml 03/14/24 18:21 Sodium Chloride 0.9% 10ml Flush Syringe IV 04/13/24 18:20 NEEDED PRN Maintain IV Site ORDERS Category Date Time Status CT facial bones wo con Stat Cat Scan 03/14/24 17:24 Completed CBC w/Auto Diff [Complete Blood Count Auto Diff] Stat Lab 03/14/24 17:30 Completed CMP [Comprehensive Metabolic Panel] Stat Lab 03/14/24 17:30 Completed CRP [C-Reactive Protein] Stat Lab 03/14/24 17:30 Completed ESR [Erythrocyte Sedimentation Rate] Stat Lab 03/14/24 17:30 Completed HIV (1&2) Antibody Rapid Stat Lab 03/14/24 17:30 Completed Hep C Ab with Reflex to RNA Stat Lab 03/14/24 17:30 Received Medical Decision Narrative: In summary patient is a 53-year-old female who presents to the emergency department for evaluation of facial swelling. Patient is hemodynamically stable upon arrival, afebrile. Physical exam is remarkable for possible bilateral malar fullness but no tenderness to palpation no erythema no edema. There is no periorbital swelling.. Differential diagnosis includes sinusitis versus possible fluid collection versus infected prosthetic etc. Initial workup will be conducted with hematologic labs CT scan of the facial bones. Initial interventions were considered however patient has no specific symptoms other than the facial swelling without pain fever or malaise thus deferred for now. Initial workup reviewed by me shows that she has worsening renal function from baseline of 1.1-1.4 today and my informal interpretation of her imaging shows some soft tissue swelling over the area overlying the prosthetics but no specific fluid collection or abscess noted prior to radiology read. Given this I had interactive discussion with patient about her findings and her workup and via patient directed decision making and discharge patient will be referred to ENT for further evaluation of her facial swelling given her extensive reconstructive surgery. <Srikanth Zambrano MD - Last Filed: 03/14/24 22:53> Vital Signs: 03/14/24 17:18 03/14/24 17:22 03/14/24 18:00 Temperature 98.3 F Temperature Source Oral Pulse Rate 95 H 89 Pulse Rate [Left Radial] 95 H Respiratory Rate 14 Blood Pressure 119/83 113/75 Blood Pressure [Right Arm] 119/83 Blood Pressure Mean [Right Arm] 95 Blood Pressure Source Blood Pressure Position 02 Sat by Pulse Oximetry 96 96 96 Oxygen Delivery Method Room Air Room Air 03/14/24 18:30 03/14/24 19:37 Temperature 97.9 F Temperature Source Oral Pulse Rate 86 90 Pulse Rate [Left Radial] Respiratory Rate 18 Blood Pressure 135/78 135/76 Blood Pressure [Right Arm] Blood Pressure Mean [Right Arm] Blood Pressure Source Automatic Cuff Blood Pressure Position Supine 02 Sat by Pulse Oximetry 98 Oxygen Delivery Method Room Air Lab Data Lab Results 03/14/24 17:30: WBC 6.4, RBC 4.25, Hgb 12.7, Hct 37.0, MCV 87.0, MCH 29.9, MCHC 34.3, RDW 15.5, Plt Count 193, MPV 9.0, Neut % (Auto) 71.1, Lymph % (Auto) 21.8, [place] % (Auto) 4.7, Eos % (Auto) 1.8, Baso % (Auto) 0.6, Neut # (Auto) 4.6, Lymph # (Auto) 1.4, [place] # (Auto) 0.3, Eos # (Auto) 0.1, Baso # (Auto) 0.0, ESR 26, Sodium 138, Potassium 4.1, Chloride 107, Carbon Dioxide 26, Anion Gap 9.1, BUN 18 H, Creatinine 1.40 H, Estimated Creat Clear 70, Estimated GFR 39 L, Est GFR ( Amer) 48 L, Glucose 101 H, Calcium 9.4, Total Bilirubin 0.5, AST 24, ALT 24, Alkaline Phosphatase 100, C-Reactive Protein 9.6 H, Total Protein 7.0, Albumin 4.1, Globulin 2.9, Albumin/Globulin Ratio 1.4, HIV 1&2 Antibody Rapid Nonreactive Orders (Tests/Meds): ED MEDICATIONS Discontinued Medications Generic Name Dose Route Start Last Admin Trade Name Freq PRN Reason Stop Dose Admin Doxycycline Hyclate 100 mg 03/14/24 19:33 03/14/24 19:37 Doxycycline Hycl 100 Mg Tablet PO 03/14/24 19:34 100 mg ONCE ONE Administration Sodium Chloride 10 ml 03/14/24 18:21 Sodium Chloride 0.9% 10ml Flush Syringe IV 04/13/24 18:20 NEEDED PRN Maintain IV Site ORDERS Category Date Time Status CT facial bones wo con Stat Cat Scan 03/14/24 17:24 Completed CBC w/Auto Diff [Complete Blood Count Auto Diff] Stat Lab 03/14/24 17:30 Completed CMP [Comprehensive Metabolic Panel] Stat Lab 03/14/24 17:30 Completed CRP [C-Reactive Protein] Stat Lab 03/14/24 17:30 Completed ESR [Erythrocyte Sedimentation Rate] Stat Lab 03/14/24 17:30 Completed HIV (1&2) Antibody Rapid Stat Lab 03/14/24 17:30 Completed Hep C Ab with Reflex to RNA Stat Lab 03/14/24 17:30 Received Medical Decision Narrative: In summary patient is a 53-year-old female who presents to the emergency department for evaluation of facial swelling. Patient is hemodynamically stable upon arrival, afebrile. Physical exam is remarkable for possible bilateral malar fullness but no tenderness to palpation no erythema no edema. There is no periorbital swelling.. Differential diagnosis includes sinusitis versus possible fluid collection versus infected prosthetic etc. Initial workup will be conducted with hematologic labs CT scan of the facial bones. Initial interventions were considered however patient has no specific symptoms other than the facial swelling without pain fever or malaise thus deferred for now. Initial workup reviewed by me shows that she has worsening renal function from baseline of 1.1-1.4 today and my informal interpretation of her imaging shows some soft tissue swelling over the area overlying the prosthetics but no specific fluid collection or abscess noted prior to radiology read. Given this I had interactive discussion with patient about her findings and her workup and via patient directed decision making and discharge patient will be referred to ENT for further evaluation of her facial swelling given her extensive reconstructive surgery. I was consulted by the LEXIE, and we discussed the complexity of the problems being addressed. I approved the treatment and management plan for this patient's care in the Emergency Department, thus performing a substantive portion of the medical decision making. Srikanth Zambrano MD Critical Care <JOSE JUAN Castellano - Last Filed: 03/14/24 22:44> Critical Care Time Critical Care Time: No
[2024-03-14 17:18] VITALS: BP 119/83; PULSE 95; O2SAT 96
[2024-03-14 17:22] VITALS: BP 119/83; PULSE 95; RESP 14; TEMP 36.8; O2SAT 96; BMI 34.9
--- NOTE | 2024-03-14 17:24 | CT_ITS ---
PROCEDURE INFORMATION: Exam: CT Maxillofacial Without Contrast Exam date and time: 03/14/2024 5:33 PM Age: 53 years old Clinical indication: Mass, lump, or swelling; Other: Orbital; Additional info: Bilateral facial swelling, h/o reconstruction TECHNIQUE: Imaging protocol: Computed tomography of the face without contrast. Radiation optimization: All CT scans at this facility use at least one of these dose optimization techniques: automated exposure control; mA and/or kV adjustment per patient size (includes targeted exams where dose is matched to clinical indication); or iterative reconstruction. COMPARISON: CT FACIAL BONES WO CON 01/19/2019 1:35 PM FINDINGS: Tubes, catheters and devices: Radiodense implantable devices within the lateral soft tissues of the bilateral face, unchanged. Paranasal sinuses: No air-fluid levels. Orbital cavities: Orbits are normal. Globes are unremarkable. Nasal cavity: Rightward deviation of the bony nasal septum Bones: No acute fracture. Degenerative changes of the temporomandibular joints, with joint space narrowing and subchondral sclerosis, left worse than right. Soft tissues: Mild swelling and increased attenuation of the subcutaneous tissues of the anterior and lateral face bilaterally, likely edema or cellulitis. IMPRESSION: 1. No acute fracture. 2. Mild swelling and increased attenuation of the subcutaneous tissues of the anterior and lateral face bilaterally, likely edema or cellulitis.
--- NOTE | 2024-03-14 17:29 | PC.NURSE ---
pt to ct via wheelchair
--- NOTE | 2024-03-14 17:35 | PC.NURSE ---
Pt returned to room from RAD
[2024-03-14 17:49] LABS: Basophils % 0.6 % (0.1-2.0); Eosinophils # 0.1 K/mm3 (0.0-0.4); Eosinophils % 1.8 % (0.1-12.0); Hemoglobin 12.7 g/dL (12.2-16.2); Lymphocytes # 1.4 K/mm3 (0.7-4.5); Lymphocytes % 21.8 % (10-50); Mean Corpuscular HGB Conc 34.3 g/dL (31.8-35.4); Mean Corpuscular Hemoglobin 29.9 pg (27.0-31.2); Monocytes # 0.3 K/mm3 (0.1-1.0); Monocytes % 4.7 % (1.7-9.3); Neutrophils # 4.6 K/mm3 (1.8-7.8); Neutrophils % 71.1 % (37.0-80.0); Platelet Count 193 K/mm3 (142-424); Red Blood Count 4.25 M/mm3 (4.20-5.40); Red Cell Distribution Width 15.5 % (11.5-17.5); White Blood Count 6.4 K/mm3 (4.8-10.8)
[2024-03-14 17:54] LABS: Albumin Level 4.1 g/dl (3.5-5.0); Chloride 107 mmol/L (98-107); Potassium 4.1 mmoL/L (3.5-5.1); Sodium 138 mmol/L (136-145)
[2024-03-14 17:57] LABS: Alanine Aminotransferase 24 U/L (12-78); Albumin/Globulin Ratio 1.4 (1.1-1.8); Alkaline Phosphatase 100 U/L (38-126); Anion Gap 9.1 mEq/L (5-15); Aspartate Amino Transferase 24 U/L (14-36); Bilirubin,Total 0.5 mg/dl (0.2-1.3); Blood Urea Nitrogen 18 mg/dl (7-17); Calcium 9.4 mg/dl (8.4-10.2); Carbon Dioxide 26 mmol/L (22.0-30.0); Creatinine Clearance Estimated 70 mL/min (50-200); Estimated Glomerular Filt Rate 39 ml/min (>60); GFR (African American) 48 ML/MIN (>60); Globulin 2.9 g/dL (1.3-3.2); Glucose 101 mg/dl (74-100)
[2024-03-14 18:00] VITALS: BP 113/75; PULSE 89; O2SAT 96
[2024-03-14 18:03] LABS: C-Reactive Protein 9.6 mg/L (0-4)
--- NOTE | 2024-03-14 18:10 | PC.NURSE ---
Pt provided with drink per request
--- NOTE | 2024-03-14 18:21 | PC.NURSE ---
Pt/visitor updated that provider will be in to speak with them when the CT results are back. Call light remains within reach.
[2024-03-14 18:30] VITALS: BP 135/78; PULSE 86; O2SAT 98
[2024-03-14 18:34] LABS: Erythrocyte Sedimentation Rate 26 mm/hr (0-30)
--- NOTE | 2024-03-14 19:19 | PC.NURSE ---
radiology contacted about read time
[2024-03-14 19:37] VITALS: BP 135/76; PULSE 90; RESP 18; TEMP 36.6; O2SAT 96
[2024-03-14] MEDS: DOXYCYCLINE HYCL 100 MG TABLET PO (19:37)
[2024-03-14 22:52] LABS: HIV (1&2) Antibody Rapid NONREACTIVE (NONREACTIVE)
[2024-03-16 08:19] LABS: HCV Ab Non Reactive (Non Reactive)
== END 2024-03-14 19:41 | disposition home or self-care (01) ==
PROVIDERS: Physician Assistant; Emergency Provider Emergency Medicine; PCP Nurse Practitioner Family
DX: R22.0 Localized swelling, mass and lump, head (principal)
CPT/HCPCS: 70486; 80053; 85025; 85651; 86140; 86803; 87389; 99284

== ENCOUNTER 2024-03-19 11:35 | Outpatient (CLI) | payer OTHER, SELFPAY ==
[2024-03-21 06:42] LABS: Albumin, U 4.6 ug/mL (Not Estab.); Albumin/Creatinine Ratio 3 mg/g creat (0-29); Creatinine, Urine 152.8 mg/dL (Not Estab.)
== END 2024-03-19 23:59 | disposition home or self-care (01) ==
LOC: LAB.DROPOF 03-22 11:36
PROVIDERS: PCP Family Medicine; Visit Provider Family Medicine
DX: N18.9 Chronic kidney disease, unspecified (principal)
CPT/HCPCS: 82043; 82570

== ENCOUNTER 2024-03-23 12:53 | Outpatient (CLI) | payer OTHER, SELFPAY ==
--- NOTE | 2024-03-23 12:53 | US_ITS ---
PROCEDURE INFORMATION: Exam: US Retroperitoneal, Complete, Kidneys and Bladder Exam date and time: 03/23/2024 1:37 PM Age: 53 years old Clinical indication: Abnormal findings; Abnormal lab test; Abnormal kidney function lab tests TECHNIQUE: Imaging protocol: Real-time ultrasound of the retroperitoneum with image documentation. Complete exam focused on the bilateral kidneys and urinary bladder. COMPARISON: CT ABDOMEN PELVIS W CON 06/07/2022 10:03 PM FINDINGS: Right kidney: 9.7 x 4.6 x 5.4 cm. Non simple appearing cyst in the upper polar region of approximately 1.6 cm in maximal dimension. Septation . Left kidney: 10.2 x 3.5 x 4.9 cm. Normal. Urinary bladder: Unremarkable. Spleen: Splenomegaly. 16 cm. Previously noted on CT dated 06-07-22. IMPRESSION: 1. Right kidney: Non simple appearing cyst in the upper polar region of approximately 1.6 cm in maximal dimension. Septation . Please reference CT dated 06-07-22. 2. Splenomegaly. 16 cm. Previously noted on CT dated 06-07-22.
== END 2024-03-23 23:59 | disposition home or self-care (01) ==
LOC: RAD 12:53
PROVIDERS: PCP Family Medicine; Visit Provider Family Medicine
DX: I12.9 Hypertensive chronic kidney disease with stage 1 through stage 4 chronic kidney disease, or unspecified chronic kidney disease (principal)
CPT/HCPCS: 76770

== ENCOUNTER 2024-03-23 21:49 | Emergency (ER) | payer OTHER, SELFPAY ==
[2024-03-23 21:51] VITALS: BP 113/80; PULSE 98; RESP 18; TEMP 37.3; O2SAT 95; BMI 33.9
[2024-03-23 22:15] VITALS: BP 115/90; PULSE 95; O2SAT 96
[2024-03-23 22:26] LABS: Microscopic, Urine URINE MICROSCOPIC (MICROSCOPIC)
[2024-03-23 22:28] LABS: Appearance,Urine CLEAR (Clear); Bilirubin,Urine Negative (Negative); Blood, Urine Negative (Negative); Color,Urine YELLOW (Yellow); Glucose,Urine (UA) Negative (Negative); Ketones,Urine Negative (Negative); Leukocyte Esterase,Urine Negative (Negative); Nitrate,Urine Negative (Negative); Protein,Urine Negative (Negative); Specific Gravity, Urine <= 1.005 (1.005-1.030); Urobilinogen,Urine 0.2 EU/dl (0.2)
[2024-03-23 22:48] LABS: Basophils # 0.1 K/mm3 (0-0.2); Basophils % 0.8 % (0.1-2.0); Eosinophils # 0.2 K/mm3 (0.0-0.4); Eosinophils % 3.7 % (0.1-12.0); Hematocrit 37.8 % (37.0-47.0); Hemoglobin 12.9 g/dL (12.2-16.2); Lymphocytes # 1.5 K/mm3 (0.7-4.5); Lymphocytes % 24.7 % (10-50); Mean Corpuscular HGB Conc 34.1 g/dL (31.8-35.4); Mean Corpuscular Hemoglobin 29.5 pg (27.0-31.2); Mean Corpuscular Volume 86.4 fl (81-99); Mean Platelet Volume 9.3 fl (7.4-10.4); Monocytes # 0.4 K/mm3 (0.1-1.0); Monocytes % 6.5 % (1.7-9.3); Neutrophils # 3.8 K/mm3 (1.8-7.8); Neutrophils % 64.2 % (37.0-80.0); Platelet Count 189 K/mm3 (142-424); Red Blood Count 4.37 M/mm3 (4.20-5.40); Red Cell Distribution Width 15.2 % (11.5-17.5); White Blood Count 5.9 K/mm3 (4.8-10.8)
[2024-03-23 22:49] LABS: Albumin Level 4.2 g/dl (3.5-5.0); Chloride 101 mmol/L (98-107); Potassium 4.1 mmoL/L (3.5-5.1); Sodium 136 mmol/L (136-145)
[2024-03-23 22:51] LABS: Blood Urea Nitrogen 11 mg/dl (7-17); Creatinine Clearance Estimated 98 mL/min (50-200); Estimated Glomerular Filt Rate 58 ml/min (>60); GFR (African American) 70 ML/MIN (>60)
[2024-03-23 22:51] LABS: Bacteria,Urine Trace /lpf; WBC,Urine Occasional #/hpf (0-3)
[2024-03-23 22:52] LABS: Alanine Aminotransferase 29 U/L (12-78); Albumin/Globulin Ratio 1.4 (1.1-1.8); Alkaline Phosphatase 95 U/L (38-126); Anion Gap 12.1 mEq/L (5-15); Aspartate Amino Transferase 38 U/L (14-36); Bilirubin,Total 0.6 mg/dl (0.2-1.3); Calcium 9.3 mg/dl (8.4-10.2); Carbon Dioxide 27 mmol/L (22.0-30.0); Globulin 2.9 g/dL (1.3-3.2); Glucose 114 mg/dl (74-100); Total Protein,Serum 7.1 g/dl (6.3-8.2)
--- NOTE | 2024-03-23 22:54 | ED_ITS ---
Discharge Plan Disposition Patient Disposition: Home, Self-Care Chief Complaint: Recheck/Abnormal Lab/Rx Prescriptions Prescriptions: No Action folic acid 400 mcg tablet 400 mcg PO DAILY citalopram 40 mg tablet 40 mg PO DAILY erythromycin 5 mg/gram (0.5 %) ointment 0.5 inch ophthalmic (eye) TID Qty: 3.5 2RF Rx Instructions: apply to each eye 3x/day pantoprazole 40 mg tablet,delayed release (DR/EC) 40 mg PO DAILY Patient Comments: TAKE 1 TABLET BY MOUTH ONCE DAILY DIRECTED atorvastatin 20 mg tablet 20 mg PO DAILY Patient Comments: TAKE 1 TABLET BY MOUTH ONCE DAILY buspirone 10 MG tablet 10 mg PO BID doxycycline hyclate 100 mg capsule 100 mg PO BID 7 Days Qty: 14 0RF Referrals Follow up/Referrals: Tony Bello MD [Primary Care Provider] - See instructions Activity Restrictions/Add. Instructions Additional Instructions/Restrictions: Follow-up with your family doctor regarding this visit to the emergency department. Clinical Impressions Clinical Impression: Encounter for medical assessment Print Language Print Language: Icelandic Discharge ED Provider: Srikanth Zambrano General Adult HPI General Chief complaint: Recheck/Abnormal Lab/Rx Stated complaint: Peeing small amounts at a time Time Seen by Provider: 03/23/24 22:02 Mode of Arrival: Ambulatory Source of Information: Patient Limitations: No Limitations Description of Symptoms (Recalled from ER Triage Doc. by RN): PT HAD LABS COLLECTED AT PCP OFFICE ON 03/14, WAS TOLD SHE HAD LOW GFR AND HIGH CREATINE, HAD BILATERAL KIDNEY ULTRASOUND DONE TODAY HERE AT HOSPITAL BUT DOES NOT KNOW RESULTS, PT HAS APPT WITH NEPHROLOGISTS ON 04/12 IN [place]. PT CALLED [facility] OFFICE WITH CONCERNS OF ONLY PEEING 3 TIMES TODAY AND WAS TOLD TO COME TO ER History of Present Illness HPI narrative: Please note that above description of symptoms, in this electronic medical record under categorization of recalled from ER triage doctor by RN are reflective of an initial nursing assessment, however, is not reflective of my full history and physical exam that was personally taken and clarified. Consequentially, this preceding description of symptoms, which may include the patient's categorized chief complaint in the EMR, do not reflect my personal clinical impression, and the ultimate description of history of present illness and patient stated complaints should be deferred to this section of the note. Unless stated otherwise or congruent with this section of the note, additional signs, symptoms, or incongruence should be interpreted as inaccurate with my clinical impression. Related Data Home Medications ?Medication ?Instructions ?Recorded ?Confirmed buspirone 10 mg tablet 10 mg PO BID Anxiety 12/03/19 03/19/24 citalopram 40 mg tablet 40 mg PO DAILY 12/31/22 03/19/24 folic acid 400 mcg tablet 400 mcg PO DAILY 12/31/22 03/19/24 pantoprazole 40 mg tablet,delayed 40 mg PO DAILY 08/19/23 03/19/24 release atorvastatin 20 mg tablet 20 mg PO DAILY 10/08/23 03/19/24 Previous Rx's ?Medication ?Instructions ?Recorded doxycycline hyclate 100 mg capsule 100 mg PO BID 7 days #14 caps 03/14/24 erythromycin 5 mg/gram (0.5 %) eye 0.5 inch ophthalmic (eye) TID #3.5 03/16/24 ointment grams Allergies Allergy/AdvReac Type Severity Reaction Status Date / Time pseudoephedrine Allergy Verified 03/19/24 11:25 [[facility] Disclaimer: The information contained in this section may have been updated after the patient was seen, as this information can be updated by other users. Medical History (Updated 03/23/24 @ 22:58 by Srikanth Zambrano MD) Chronic kidney disease Conjunctivitis Treacher Rondon syndrome Hypertension Hyperlipidemia Pancreas cyst Tenderness of chest wall Bee sting Allergic reaction Periorbital cellulitis Surgical History History of cholecystectomy History of tonsillectomy Family History Other No significant family history Social History Smoking Status: Never smoker alcohol intake: never substance use type: denies use current occupational status: unemployed Travel in the last 8 weeks: None household members: spouse and significant other housing: apartment current occupational exposures/hazards: No caffeine: Yes Other Medical History Have you received the Flu Vaccine for this season: No Have you received the Pneumonia Vaccine: No ROS Obtained: Yes All systems reviewed & no additional complaints except as documented Physical Exam General General appearance: alert Head Head exam: atraumatic and normocephalic Eye Eye exam: Present normal appearance, PERRL and EOMI Neck Neck exam: Present normal inspection, full ROM and trachea midline Respiratory Respiratory exam: Absent respiratory distress, wheezes, stridor, accessory muscle use or prolonged expiratory phase Cardiovascular Cardiovascular exam: Present other (Pulses equal symmetric in upper and lower extremities) Abdominal Exam Abdominal exam: Present soft; Absent distention, tenderness or pulsatile mass Extremities Exam Extremities exam: Absent edema Neurological Exam Neurological exam: Present alert, oriented X3 and CN II-XII intact; Absent motor sensory deficit Skin Skin exam: Present warm and dry; Absent diaphoresis or erythema Medical Decision Making Medical Records Medical records reviewed: Yes I reviewed the patient's medical records. Screening: Per USPSTF and CDC recommendations, given the prevalence of disease in our region, it is our hospital?s policy to screen for HIV and viral Hepatitis for all patients aged 18 and over and those with ongoing risk factors. Jatin Inquiry Pt receiving controlled substance: No Jatin was queried for this patient: No Vital Signs: 03/23/24 21:51 03/23/24 22:15 Temperature 99.1 F Temperature Source Oral Pulse Rate 95 H Pulse Rate [Right Radial] 98 H Respiratory Rate 18 Blood Pressure 115/90 Blood Pressure [Right Arm] 113/80 Blood Pressure Mean [Right Arm] 91 02 Sat by Pulse Oximetry 95 96 Oxygen Delivery Method Room Air Lab Data Lab Results 03/23/24 22:00: Urine Color Yellow, Urine Appearance Clear, Urine pH 6.0, Ur Specific [place] <= 1.005, Urine Protein Negative, Urine Glucose (UA) Negative, Urine Ketones Negative, Urine Blood Negative, Urine Nitrate Negative, Urine Bilirubin Negative, Urine Urobilinogen 0.2, Ur Leukocyte Esterase Negative, Urine WBC Occasional, Ur Squamous Epith Cells 5-10, Urine Bacteria Trace 03/23/24 22:30: Sodium 136, Potassium 4.1, Chloride 101, Carbon Dioxide 27, Anion Gap 12.1, BUN 11, Creatinine 1.00, Estimated Creat Clear 98, Estimated GFR 58 L, Est GFR ( Amer) 70, Glucose 114 H, Calcium 9.3, Total Bilirubin 0.6, AST 38 H, ALT 29, Alkaline Phosphatase 95, Total Protein 7.1, Albumin 4.2, Globulin 2.9, Albumin/Globulin Ratio 1.4 03/23/24 22:30 Orders (Tests/Meds): ORDERS Category Date Time Status CBC w/Auto Diff [Complete Blood Count Auto Diff] Stat Lab 03/23/24 22:30 Received CMP [Comprehensive Metabolic Panel] Stat Lab 03/23/24 22:30 Completed UA [Urinalysis and Microscopic] Stat Lab 03/23/24 22:00 Completed Medical Decision Narrative: 53-year-old female presenting with concern for medical evaluation. Patient was told that her creatinine was high and her kidney function was decreased on March 12. Has an appointment scheduled with nephrology on 04/12. Had a renal ultrasound done today for further evaluation. Wondering what these results show. She states that she has had intermittent frequency and urgency, no burning, blood, fevers, chills, or flank pain. States that she has urinated 3 times today and she is concerned that her kidneys may not be functioning well.No other acute symptoms or complaints. History obtained the patient. On arrival, very well-appearing. Abdomen soft, nontender, nondistended. Hemodynamically stable, afebrile, no acute abnormalities. Differential includes UTI, metabolic abnormality, endocrinologic abnormality, renal dysfunction, among others. Patient was allowed to p.o. Independent rotation of workup demonstrates nonactionable laboratory findings. GFR is 58 today. BUN 11, creatinine 1.0. Urinalysis without concern for UTI. On my independent interpretation of renal ultrasound, patient has small right kidney cyst, otherwise normal findings. Because patient at baseline without signs or symptoms of clinical decompensation, deemed appropriate for discharge. Results were relayed to patient who voiced understanding and were agreeable to outpatient management and follow up. I discussed my clinical impression with patient and answered all questions. At this time, the evidence for any other entities in the differential is insufficient to warrant any further testing or ED observation. This was explained as well. Advisory was given that persistent or worsening symptoms require further evaluation. I confirmed the understanding of this discussion. Materials Planning Manager disclaimer Much of this encounter note is an electronic sales assistants and salespersons spoken language to printed text. Electronic sales assistants and salespersons of the spoken language may permit errors. Although I have reviewed the note, some errors may still exist. Critical Care Critical Care Time Critical Care Time: No
[2024-03-23 23:02] VITALS: BP 131/85; PULSE 89; RESP 20; TEMP 36.8; O2SAT 93
[2024-03-23 23:36] LABS: Hemoglobin A1C 4.9 % (4.0-6.0)
== END 2024-03-23 23:03 | disposition home or self-care (01) ==
PROVIDERS: Emergency Provider Emergency Medicine; PCP Family Medicine
DX: Z00.8 Encounter for other general examination (principal); R34 Anuria and oliguria
CPT/HCPCS: 80053; 81001; 83036; 85025; 99283

== ENCOUNTER 2024-05-05 10:43 | Outpatient (CLI) | payer OTHER, SELFPAY ==
[2024-05-05 10:50] LABS: Microscopic, Urine URINE MICROSCOPIC (MICROSCOPIC)
[2024-05-05 11:11] LABS: Appearance,Urine CLEAR (Clear); Bilirubin,Urine Negative (Negative); Blood, Urine Negative (Negative); Color,Urine YELLOW (Yellow); Glucose,Urine (UA) Negative (Negative); Ketones,Urine Negative (Negative); Leukocyte Esterase,Urine 1+ (Negative); Nitrate,Urine Negative (Negative); Protein,Urine Negative (Negative); Specific Gravity, Urine 1.025 (1.005-1.030); Urobilinogen,Urine 0.2 EU/dl (0.2)
[2024-05-05 11:34] LABS: Blood Urea Nitrogen 11 mg/dl (7-17); Calcium 9.4 mg/dl (8.4-10.2); Carbon Dioxide 28 mmol/L (22.0-30.0); Chloride 105 mmol/L (98-107); Estimated Glomerular Filt Rate 58 ml/min (>60); GFR (African American) 70 ML/MIN (>60); Glucose 82 mg/dl (74-100); Phosphorous 3.5 mg/dl (2.5-4.5); Sodium 140 mmol/L (136-145)
[2024-05-05 11:42] LABS: Bacteria,Urine Trace /lpf
== END 2024-05-05 23:59 | disposition home or self-care (01) ==
LOC: LAB 10:43
PROVIDERS: PCP Family Medicine; Visit Provider Internal Medicine Nephrology
DX: N17.9 Acute kidney failure, unspecified (principal)
CPT/HCPCS: 36415; 80069; 81001; 87086

== ENCOUNTER 2024-05-21 13:55 | Outpatient (CLI) | payer OTHER, SELFPAY ==
[2024-05-21 18:37] LABS: Albumin Level 4.1 g/dl (3.5-5.0); Chloride 105 mmol/L (98-107); Potassium 4.4 mmoL/L (3.5-5.1); Sodium 134 mmol/L (136-145)
[2024-05-21 18:40] LABS: Alanine Aminotransferase 28 U/L (12-78); Albumin/Globulin Ratio 1.6 (1.1-1.8); Alkaline Phosphatase 112 U/L (38-126); Aspartate Amino Transferase 30 U/L (14-36); Bilirubin,Total 0.5 mg/dl (0.2-1.3); Blood Urea Nitrogen 9 mg/dl (7-17); Calcium 9.4 mg/dl (8.4-10.2); Cholesterol 127 mg/dl (140-200); Estimated Glomerular Filt Rate 47 ml/min (>60); GFR (African American) 57 ML/MIN (>60); Globulin 2.6 g/dL (1.3-3.2); Glucose 112 mg/dl (74-100); Total Protein,Serum 6.7 g/dl (6.3-8.2); Triglycerides 158 mg/dl (30-150); VLDL Cholesterol 32 mg/dL (0-40)
[2024-05-21 18:41] LABS: Chol/HDL Ratio 3.3 (1-3.5); HDL Cholesterol 39 mg/dl (40-60)
[2024-05-21 18:51] LABS: Direct LDL Cholesterol 63.36 mg/dL (100-129)
[2024-05-21 19:04] LABS: Anion Gap 6.4 mEq/L (5-15); Carbon Dioxide 27 mmol/L (22.0-30.0)
[2024-05-21 19:10] LABS: Thyroid Stimulating Hormone 2.72 uIU/mL (0.465-4.68)
== END 2024-05-21 23:59 | disposition home or self-care (01) ==
LOC: LAB.DROPOF 05-24 13:57
PROVIDERS: PCP Family Medicine; Visit Provider Family Medicine
DX: E78.5 Hyperlipidemia, unspecified (principal); I12.9 Hypertensive chronic kidney disease with stage 1 through stage 4 chronic kidney disease, or unspecified chronic kidney disease
CPT/HCPCS: 80053; 80061; 84443

== ENCOUNTER 2024-05-28 12:24 | Outpatient (CLI) | payer OTHER, SELFPAY ==
[2024-05-28 17:59] LABS: Coronavirus 19, PCR Not Detected (NotDetected); Influenza A, PCR Not Detected (NotDetected); Influenza B, PCR Not Detected (NotDetected)
== END 2024-05-28 23:59 | disposition home or self-care (01) ==
LOC: LAB.DROPOF 05-31 12:25
PROVIDERS: PCP Family Medicine; Visit Provider Family Medicine
DX: J01.90 Acute sinusitis, unspecified (principal); R05.9 Cough, unspecified
CPT/HCPCS: 87636

== ENCOUNTER 2024-05-29 18:28 | Emergency (ER) | payer OTHER, SELFPAY ==
--- NOTE | 2024-05-29 19:10 | EXP.UTC ---
Discharge Plan Disposition Patient Disposition: Home, Self-Care Condition: Good Prescriptions Prescriptions: New azithromycin [Zithromax] 250 mg tablet 250 mg PO UD DOSE PK Qty: 6 0RF Rx Instructions: Take two (2) tablets today, then one (1) tablet days #2 thru #5 benzonatate 100 mg capsule 100 mg PO TIDP PRN (Reason: Cough) Qty: 30 0RF No Action polyethylene glycol 3350 17 gram/dose powder PO PRN Patient Comments: MIX 17 GRAMS OF POWDER IN 8 OUNCES OF LIQUID AND DRINK ONCE DAILY FOR 10 DAYS, THEN ONCE DAILY NEEDED THEREAFTER meloxicam 15 mg tablet PO PRN Patient Comments: TAKE 1 TABLET BY MOUTH ONCE DAILY hydrocodone-acetaminophen 5-325 mg tablet 1 tab PO Q6H PRN (Reason: pain) Qty: 12 0RF hydrocodone-acetaminophen 5-325 mg tablet 1 tab PO BID PRN (Reason: pain) Qty: 14 0RF promethazine-DM 6.25-15 mg/5 mL syrup 7.5 ml PO Q6H PRN (Reason: cough) Qty: 118 0RF fluticasone propionate [Flonase Allergy Relief] 50 mcg/actuation spray,suspension 1 spray intranasal DAILY PRN (Reason: allergy symptoms) Qty: 16 0RF Rx Instructions: administer into each nostril cetirizine [All Day Allergy (cetirizine)] 10 mg tablet 10 mg PO DAILY PRN (Reason: allergy symptoms) Qty: 30 0RF pantoprazole 40 mg tablet,delayed release (DR/EC) 40 mg PO DAILY Patient Comments: TAKE 1 TABLET BY MOUTH ONCE DAILY DIRECTED atorvastatin 20 mg tablet 20 mg PO DAILY Qty: 90 0RF citalopram 40 mg tablet 40 mg PO DAILY Qty: 90 0RF folic acid 400 mcg tablet 400 mcg PO DAILY Qty: 30 5RF buspirone 10 mg tablet 10 mg PO BID Qty: 60 0RF Referrals Follow up/Referrals: Tony Bello MD [Primary Care Provider] - See instructions Activity Restrictions/Add. Instructions Additional Instructions/Restrictions: Drink plenty of fluids. Take tylenol or ibuprofen for pain or fever. Take the medications as directed. Follow up with your regular doctor. GO TO THE ER FOR ANY WORSENING SYMPTOMS Clinical Impressions Clinical Impression: Acute viral syndrome, Bronchitis Print Language Print Language: Belgian Discharge ED Provider: Demetrius Villa [facility] General Stated complaint: cough, runny nose chills Time Seen by Provider: 05/29/24 19:10 Related Data Home Medications ?Medication ?Instructions ?Recorded ?Confirmed pantoprazole 40 mg tablet,delayed 40 mg PO DAILY 08/19/23 05/28/24 release meloxicam 15 mg tablet mg PO PRN 04/07/24 05/28/24 polyethylene glycol 3350 17 g PO PRN 04/07/24 05/28/24 gram/dose oral powder Previous Rx's ?Medication ?Instructions ?Recorded atorvastatin 20 mg tablet 20 mg PO DAILY #90 tabs 03/24/24 citalopram 40 mg tablet 40 mg PO DAILY #90 tabs 03/24/24 hydrocodone 5 mg-acetaminophen 325 1 tab PO Q6H PRN pain #12 tabs 04/26/24 mg tablet hydrocodone 5 mg-acetaminophen 325 1 tab PO BID PRN pain #14 tabs 05/03/24 mg tablet cetirizine 10 mg tablet (All Day 10 mg PO DAILY PRN allergy 05/28/24 Allergy (cetirizine)) symptoms #30 tabs fluticasone propionate 50 1 spray intranasal DAILY PRN 05/28/24 mcg/actuation nasal allergy symptoms #16 grams spray,suspension (Flonase Allergy Relief) promethazine-DM 6.25 mg-15 mg/5 mL 7.5 ml PO Q6H PRN cough #118 mL 05/28/24 oral syrup azithromycin 250 mg tablet 250 mg PO UD DOSE PK #6 tabs 05/29/24 (Zithromax) benzonatate 100 mg capsule 100 mg PO TIDP PRN Cough #30 caps 05/29/24 buspirone 10 mg tablet 10 mg PO BID Anxiety #60 tabs 05/31/24 folic acid 400 mcg tablet 400 mcg PO DAILY #30 tabs 05/31/24 Allergies Allergy/AdvReac Type Severity Reaction Status Date / Time pseudoephedrine (From Allergy Verified 05/28/24 14:20 Sudafed) [facility] Disclaimer: The information contained in this section may have been updated after the patient was seen, as this information can be updated by other users. Medical History Otitis Mandibulofacial dystosis Chronic kidney disease Conjunctivitis Treacher Rondon syndrome Hypertension Hyperlipidemia Pancreas cyst Tenderness of chest wall Bee sting Allergic reaction Periorbital cellulitis Surgical History History of repair of congenital cleft palate History of ear surgery History of eye surgery eye implants bilaterally History of cholecystectomy History of tonsillectomy Family History Other No significant family history Social History Smoking Status: Never smoker alcohol intake: never substance use type: denies use current occupational status: unemployed Travel in the last 8 weeks: None household members: spouse and significant other housing: apartment current occupational exposures/hazards: No caffeine: Yes Have you lived/traveled outside [place] in past 30 days?: No Contact w/someone who lives/traveled outside [place] past 30 days?: No Exposure to someone with infectious disease in past 14 days?: No Do you have a fever (greater than 100.4 F or 38 C)?: No Have you tested positive for COVID-19: No Exposed to someone with COVID-19 in past 14 days?: No Do you have a sore throat?: No Do you have a cough?: Yes Do you have any weakness?: No Do you have any diarrhea?: No Are you experiencing any unusual bleeding?: No Do you have any muscle aches/pain?: No Do you have any abdominal pain?: No Are you experiencing loss of taste or smell?: No ROS Obtained: Yes All systems reviewed & no additional complaints except as documented Constitutional Constitutional: Reports chills and Reports fever(s) Eyes Eyes: Denies eye discharge ENT Ears, Nose, Mouth, and Throat: Reports as per HPI Cardiovascular Cardiovascular: Denies chest pain Respiratory Respiratory: Denies shortness of breath, Reports chest congestion, Reports cough, Denies stridor and Denies wheezing Gastrointestinal Gastrointestingal: Reports nausea; Denies abdominal pain, constipation, cramping, diarrhea or vomiting Musculoskeletal Musculoskeletal: Denies arthralgias Integumentary/Breasts Skin/Breast: Denies rash Neurologic Neurologic: Denies paresthesias Allergic/Immunologic Allergic/Immunologic: Denies wheezing Physical Exam General General appearance: alert and in no apparent distress Head Head exam: atraumatic, normocephalic and normal inspection Eye Eye exam: Present normal appearance, PERRL and EOMI ENT ENT exam: Present mucous membranes moist and normal external ear exam Expanded ENT Exam TM/Canal exam: Bilateral TM: erythema and bulging Nose exam: Absent sinus tenderness Mouth exam: Present normal external inspection; Absent drooling Teeth exam: Present normal inspection Throat exam: Present tonsillar erythema, tonsillomegaly and tonsillar exudate Neck Neck exam: Present normal inspection, full ROM and trachea midline; Absent tenderness, meningismus or lymphadenopathy Chest Chest inspection: Present normal inspection and symmetric chest wall rise; Absent tenderness Respiratory Respiratory exam: Present normal lung sounds bilaterally; Absent respiratory distress, wheezes, stridor or accessory muscle use Cardiovascular Cardiovascular exam: Present regular rate and normal rhythm; Absent systolic murmur or diastolic murmur Abdominal Exam Abdominal exam: Present soft and normal bowel sounds; Absent distention, tenderness, guarding, rebound or rigidity Extremities Exam Extremities exam: Present normal inspection and normal capillary refill; Absent calf tenderness Back Exam Back exam: Present normal inspection and full ROM; Absent tenderness, CVA tenderness (R) or CVA tenderness (L) Neurological Exam Neurological exam: Present alert, oriented X3 and CN II-XII intact Psychiatric Psychiatric exam: Present normal affect and normal mood Skin Skin exam: Present warm, dry, intact and normal color Medical Decision Making Medical Records Medical records reviewed: No I reviewed the patient's medical records. Screening: Per USPSTF and CDC recommendations, given the prevalence of disease in our region, it is our hospital?s policy to screen for HIV and viral Hepatitis for all patients aged 18 and over and those with ongoing risk factors. Jatin Inquiry Pt receiving controlled substance: No Lab Data Lab results reviewed: Yes I reviewed the patient's lab results.
[2024-05-29 19:14] VITALS: BP 126/79; PULSE 86; RESP 18; TEMP 36.7; O2SAT 96; BMI 34.7
[2024-05-29 19:27] LABS: UTC Influenza A Antigen Negative (Negative); UTC Influenza B Antigen Negative (Negative)
[2024-05-29 20:01] LABS: UTC Strep Screen (Rapid) Negative (Negative)
[2024-05-29 20:08] VITALS: BP 126/79; PULSE 86; RESP 18; TEMP 36.7
[2024-05-29 20:16] LABS: Coronavirus 19, PCR Not Detected (NotDetected); Influenza A, PCR Not Detected (NotDetected); Influenza B, PCR Not Detected (NotDetected)
== END 2024-05-29 20:13 | disposition home or self-care (01) ==
PROVIDERS: Emergency Provider Nurse Practitioner Family; PCP Family Medicine
DX: J20.9 Acute bronchitis, unspecified (principal); B34.9 Viral infection, unspecified
CPT/HCPCS: 87636; 87804; 87880; 99213; G0381

== ENCOUNTER 2024-09-03 15:57 | Emergency (ER) | payer OTHER, SELFPAY ==
[2024-09-03 16:34] VITALS: BP 106/70; PULSE 76; RESP 18; TEMP 36.6; O2SAT 100; BMI 33.9
--- NOTE | 2024-09-03 16:51 | HMH.EDGENADL ---
Discharge Plan Disposition Patient Disposition: Home, Self-Care Condition: Good Prescriptions Prescriptions: New ondansetron 4 mg tablet,disintegrating 4 mg PO QID PRN (Reason: nausea and vomiting) Qty: 10 0RF No Action polyethylene glycol 3350 17 gram/dose powder PO PRN Patient Comments: MIX 17 GRAMS OF POWDER IN 8 OUNCES OF LIQUID AND DRINK ONCE DAILY FOR 10 DAYS, THEN ONCE DAILY NEEDED THEREAFTER pantoprazole 40 mg tablet,delayed release (DR/EC) 40 mg PO DAILY Patient Comments: TAKE 1 TABLET BY MOUTH ONCE DAILY DIRECTED amoxicillin-pot clavulanate 875-125 mg tablet 1 tab PO BID Qty: 14 0RF hydrocodone-homatropine 5-1.5 mg/5 mL syrup 5 ml PO Q6H PRN (Reason: cough) Qty: 60 0RF citalopram 40 mg tablet 40 mg PO DAILY Qty: 90 0RF folic acid 400 mcg tablet 400 mcg PO DAILY Qty: 30 5RF buspirone 10 mg tablet 10 mg PO BID Qty: 60 0RF oxybutynin chloride 2.5 mg tablet 2.5 mg PO HS Qty: 30 5RF atorvastatin 20 mg tablet See Rx Instructions .ROUTE .COMPLEX Qty: 90 0RF Dose Instruction: Take 1 tablet by mouth once daily Rx Instructions: Take 1 tablet by mouth once daily Referrals Follow up/Referrals: Rahul Newby MD [Staff Physician] - See instructions Tony Bello MD [Primary Care Provider] - See instructions Activity Restrictions/Add. Instructions Additional Instructions/Restrictions: As we discussed please continue taking Tylenol alternating with Motrin for symptoms and I have sent Zofran and to your pharmacy. I have referred you to Dr. Newby for evaluation of your lipoma. If you have any continued new or worsening signs or symptoms follow-up with your PCP or return to the ER as needed. Clinical Impressions Clinical Impression: Lipoma of lateral chest wall Print Language Print Language: Chinese Discharge ED Provider: Duy Romero General Adult HPI <JOSE JUAN Castellano - Last Filed: 09/03/24 17:44> General Chief complaint: PAIN Stated complaint: fatty tumors on right side hurting Time Seen by Provider: 09/03/24 16:51 Mode of Arrival: Ambulatory Source of Information: Patient and Spouse Description of Symptoms (Recalled from ER Triage Doc. by RN): PT REPORTS SHE WAS DIAGNOSED TWO YEARS AGO WITH FATTY TUMORS ON THE HER RIGHT SIDE. PT C/O RIGHT SIDE PAIN IN HER RIBS AND IN HER SIDE ALONG WITH NAUSEA. History of Present Illness HPI narrative: Patient presents for evaluation of a chest wall lipoma. Patient states that she was diagnosed with right chest wall lipomas 2 years ago that were incidentally found while she was being worked up for a pancreatic cyst. Patient has reported that they have been asymptomatic all this time however 2 days ago she began having pain over this area. She denies any shortness of breath fever trauma injury difficulty breathing. Patient reports that the pain has been made her nauseous but she has not vomited she has not tried any [id number] or at home treatments. Related Data Home Medications ?Medication ?Instructions ?Recorded ?Confirmed pantoprazole 40 mg tablet,delayed 40 mg PO DAILY 08/19/23 07/02/24 release polyethylene glycol 3350 17 g PO PRN 04/07/24 07/02/24 gram/dose oral powder Previous Rx's ?Medication ?Instructions ?Recorded citalopram 40 mg tablet 40 mg PO DAILY #90 tabs 03/24/24 buspirone 10 mg tablet 10 mg PO BID Anxiety #60 tabs 05/31/24 folic acid 400 mcg tablet 400 mcg PO DAILY #30 tabs 05/31/24 oxybutynin chloride 2.5 mg tablet 2.5 mg PO HS #30 tabs 06/22/24 atorvastatin 20 mg tablet See Rx Instructions .Route 06/28/24 .COMPLEX #90 tabs amoxicillin 875 mg-potassium 1 tab PO BID #14 tabs 07/02/24 clavulanate 125 mg tablet hydrocodone-homatropine 5 mg-1.5 5 ml PO Q6H PRN cough #60 mL 07/02/24 mg/5 mL oral syrup ondansetron 4 mg disintegrating 4 mg PO QID PRN nausea and 09/03/24 tablet vomiting #10 tabs Allergies Allergy/AdvReac Type Severity Reaction Status Date / Time pseudoephedrine (From Allergy Verified 07/02/24 11:13 Sudafed) [facility] <JOSE JUAN Castellano - Last Filed: 09/03/24 17:44> [facility] Disclaimer: The information contained in this section may have been updated after the patient was seen, as this information can be updated by other users. Medical History (Updated 09/03/24 @ 17:37 by JOSE JUAN Castellano) Urge incontinence Pancreatitis Otitis Mandibulofacial dystosis Chronic kidney disease Conjunctivitis Treacher Rondon syndrome Hypertension Hyperlipidemia Pancreas cyst Tenderness of chest wall Bee sting Allergic reaction Periorbital cellulitis Surgical History History of repair of congenital cleft palate History of ear surgery History of eye surgery History of cholecystectomy History of tonsillectomy Family History Other No significant family history Social History Smoking Status: Never smoker alcohol intake: never substance use type: denies use current occupational status: unemployed Travel in the last 8 weeks: None household members: spouse and significant other housing: apartment current occupational exposures/hazards: No caffeine: Yes Have you lived/traveled outside [place] in past 30 days?: No Contact w/someone who lives/traveled outside US past 30 days?: No Exposure to someone with infectious disease in past 14 days?: No Do you have a fever (greater than 100.4 F or 38 C)?: No Have you tested positive for COVID-19: No Exposed to someone with COVID-19 in past 14 days?: No Do you have a sore throat?: No Do you have a cough?: No Do you have any weakness?: No Do you have any diarrhea?: No Are you experiencing any unusual bleeding?: No Do you have any muscle aches/pain?: No Do you have any abdominal pain?: No Are you experiencing loss of taste or smell?: No Other Medical History Have you received the Flu Vaccine for this season: No Have you received the Pneumonia Vaccine: No <JOSE JUAN Castellano - Last Filed: 09/03/24 17:44> ROS Obtained: Yes Systems reviewed as appropriate & no additional complaints except as documented Physical Exam <JOSE JUAN Castellano - Last Filed: 09/03/24 17:44> General General appearance: alert and in no apparent distress Respiratory Respiratory exam: Present normal lung sounds bilaterally Cardiovascular Cardiovascular exam: Present regular rate Neurological Exam Neurological exam: Present alert and oriented X3 Medical Decision Making <JOSE JUAN Castellano - Last Filed: 09/03/24 17:44> Medical Records Medical records reviewed: Yes I reviewed the patient's medical records. Screening: Per USPSTF and CDC recommendations, given the prevalence of disease in our region, it is our hospital?s policy to screen for HIV and viral Hepatitis for all patients aged 18 and over and those with ongoing risk factors. Jatin Inquiry Pt receiving controlled substance: No Vital Signs: 09/03/24 16:34 09/03/24 17:42 Temperature 97.9 F 98.1 F Temperature Source Oral Pulse Rate 74 Pulse Rate [Right] 76 Respiratory Rate 18 16 Blood Pressure 109/72 L Blood Pressure [Right Arm] 106/70 L Blood Pressure Mean [Right Arm] 82 Blood Pressure Source [Right Arm] Automatic Cuff Blood Pressure Position [Right Arm] Supine 02 Sat by Pulse Oximetry 100 Oxygen Delivery Method Room Air Orders (Tests/Meds): ED MEDICATIONS Discontinued Medications Generic Name Dose Route Start Last Admin Trade Name Freq PRN Reason Stop Dose Admin Acetaminophen 1,000 mg 09/03/24 17:12 09/03/24 17:25 Acetaminophen 500mg Tab PO 09/03/24 17:13 1,000 mg ONCE ONE Administration Ketorolac Tromethamine 30 mg 09/03/24 17:12 09/03/24 17:24 Ketorolac 30mg/Ml Vial IM 09/03/24 17:13 30 mg ONCE ONE Administration Ondansetron HCl 4 mg 09/03/24 17:37 09/03/24 17:45 Ondansetron 4mg Odt SL 09/03/24 17:38 4 mg ONCE ONE Administration ORDERS Category Date Time Status POCUS Point of Care (ER Only) Stat Exams 09/03/24 17:07 Taken Medical Decision Narrative: In summary patient is a 54-year-old female who presents to the emergency department for evaluation of right-sided chest wall pain. Patient is hemodynamically stable upon arrival, afebrile. Physical exam is remarkable for a soft but large right lateral chest wall mass that appears to be firm and rubbery just underneath the outer edge of her breast. Her bra strap does traverse just above it. There is no evidence of erythema ecchymosis palpable bony deformity cellulitis induration or fluctuance. Breath sounds clear and equal bilaterally to the bases without adventitious sounds.. Differential diagnosis includes chest wall pain versus possible fluid collection instead of a lipoma. Initial workup will be conducted with POCUS. Initial interventions include Tylenol Toradol Zofran. Initial workup reviewed by me and POCUS reveals no concerning features on ultrasound and does not did appear to be a lipoma without evidence of stranding or fluid collection. Given this Dr. Romero had a shared decision-making discussion with the patient and offered reassurance and referred to general surgery for further evaluation for possible excision if it continues to be problematic. Thus plan is to discharge patient with prescription for Zofran recommendations for symptomatic and supportive care and continue Tylenol and ibuprofen and close follow-up with her PCP as well as the aforementioned referral to general surgery. <Duy Romero MD - Last Filed: 09/03/24 23:21> Vital Signs: 09/03/24 16:34 09/03/24 17:42 Temperature 97.9 F 98.1 F Temperature Source Oral Pulse Rate 74 Pulse Rate [Right] 76 Respiratory Rate 18 16 Blood Pressure 109/72 L Blood Pressure [Right Arm] 106/70 L Blood Pressure Mean [Right Arm] 82 Blood Pressure Source [Right Arm] Automatic Cuff Blood Pressure Position [Right Arm] Supine 02 Sat by Pulse Oximetry 100 Oxygen Delivery Method Room Air Orders (Tests/Meds): ED MEDICATIONS Discontinued Medications Generic Name Dose Route Start Last Admin Trade Name Freq PRN Reason Stop Dose Admin Acetaminophen 1,000 mg 09/03/24 17:12 09/03/24 17:25 Acetaminophen 500mg Tab PO 09/03/24 17:13 1,000 mg ONCE ONE Administration Ketorolac Tromethamine 30 mg 09/03/24 17:12 09/03/24 17:24 Ketorolac 30mg/Ml Vial IM 09/03/24 17:13 30 mg ONCE ONE Administration Ondansetron HCl 4 mg 09/03/24 17:37 09/03/24 17:45 Ondansetron 4mg Odt SL 09/03/24 17:38 4 mg ONCE ONE Administration ORDERS Category Date Time Status POCUS Point of Care (ER Only) Stat Exams 09/03/24 17:07 Taken Medical Decision Narrative: In summary patient is a 54-year-old female who presents to the emergency department for evaluation of right-sided chest wall pain. Patient is hemodynamically stable upon arrival, afebrile. Physical exam is remarkable for a soft but large right lateral chest wall mass that appears to be firm and rubbery just underneath the outer edge of her breast. Her bra strap does traverse just above it. There is no evidence of erythema ecchymosis palpable bony deformity cellulitis induration or fluctuance. Breath sounds clear and equal bilaterally to the bases without adventitious sounds.. Differential diagnosis includes chest wall pain versus possible fluid collection instead of a lipoma. Initial workup will be conducted with POCUS. Initial interventions include Tylenol Toradol Zofran. Initial workup reviewed by me and POCUS reveals no concerning features on ultrasound and does not did appear to be a lipoma without evidence of stranding or fluid collection. Given this Dr. Romero had a shared decision-making discussion with the patient and offered reassurance and referred to general surgery for further evaluation for possible excision if it continues to be problematic. Thus plan is to discharge patient with prescription for Zofran recommendations for symptomatic and supportive care and continue Tylenol and ibuprofen and close follow-up with her PCP as well as the aforementioned referral to general surgery. I was consulted by the LEXIE, and we discussed the complexity of the problems being addressed. I approved the treatment and management plan for this patient's care in the emergency department, thus performing a substantive portion of the medical decision making. [id number] ultrasound was performed by me, indication was palpable nodule subcutaneously, images were not saved to a permanent archive, there is approximately 0.6 x 1 cm subcutaneous echoic lesion. There is no overlying skin changes to suggest infection. No further workup or imaging is needed and patient has previous cholecystectomy and workup with labs and imaging of the abdomen was considered but given that she only has point tenderness over her nodule and has slight nausea will be deferred. Patient was discharged with an antiemetic. Duy Romero MD Critical Care <JOSE JUAN Castellano - Last Filed: 09/03/24 17:44> Critical Care Time Critical Care Time: No
[2024-09-03] MEDS: KETOROLAC 30MG/ML VIAL 30 MG IM (17:24)
[2024-09-03] MEDS: ACETAMINOPHEN 500MG TAB 1000 MG PO (17:25)
--- NOTE | 2024-09-03 17:26 | PC.NURSE ---
I went with for an abd US. no new complaints at this time. no needs voiced. call chan in reach.
[2024-09-03 17:42] VITALS: BP 109/72; PULSE 74; RESP 16; TEMP 36.7; O2SAT 99
[2024-09-03] MEDS: ONDANSETRON 4MG ODT 4 MG SL (17:45)
== END 2024-09-03 17:49 | disposition home or self-care (01) ==
PROVIDERS: Emergency Provider Emergency Medicine; PCP Family Medicine
DX: D17.1 Benign lipomatous neoplasm of skin and subcutaneous tissue of trunk (principal); R07.89 Other chest pain; R11.0 Nausea
CPT/HCPCS: 96372; 99283; J1885; Q0162

== ENCOUNTER 2024-09-14 15:57 | Emergency (ER) | payer OTHER, SELFPAY ==
[2024-09-14 16:30] VITALS: BP 146/68; PULSE 79; RESP 16; TEMP 36.8; O2SAT 97; BMI 33.9
--- NOTE | 2024-09-14 16:55 | CT_ITS ---
PROCEDURE INFORMATION: Exam: CT Chest Without Contrast; Diagnostic Exam date and time: 09/14/2024 6:50 PM Age: 54 years old Clinical indication: Chest wall pain; Additional info: R sided R sided anteriolateral low chest wall pain TECHNIQUE: Imaging protocol: Diagnostic computed tomography of the chest without contrast. Radiation optimization: All CT scans at this facility use at least one of these dose optimization techniques: automated exposure control; mA and/or kV adjustment per patient size (includes targeted exams where dose is matched to clinical indication); or iterative reconstruction. COMPARISON: CT CHEST WO CON 09/14/2024 6:50 PM FINDINGS: Lungs: Right middle lobe 4.3 mm nodule, axial image 47. Right upper lobe 3 mm nodule, axial image 37. Pleural spaces: Unremarkable. No pneumothorax. No pleural effusion. Heart: Unremarkable. No cardiomegaly. No pericardial effusion. Coronary arteries: No calcific atherosclerotic disease of the coronary arteries. Lymph nodes: Right hilar and mediastinal calcified nodes compatible with prior granulomatous process. Vasculature: Unremarkable. No aortic aneurysm. Bones/joints: Unremarkable. No acute fracture. Soft tissues: Unremarkable. IMPRESSION: 1. No CT findings that explain patient's symptoms. 2. Multiple sub 6 mm pulmonary nodules as described above. For patients at low risk (minimal or absent history of smoking and of other known risk factors), no routine follow-up is indicated. For patients at high risk (history of smoking or of other known risk factors), consider optional CT Chest at 12 months. (Reference: Enrrique) REFERENCES: Enrrique Marley, et al. Guidelines for Management of Incidental Pulmonary Nodules Detected on CT Images: From the Fleischner Society 2017. Radiology. 2017;284(1):228-243.
--- NOTE | 2024-09-14 16:56 | ED_ITS ---
Discharge Plan Disposition Patient Disposition: Home, Self-Care Condition: Good Prescriptions Prescriptions: No Action polyethylene glycol 3350 17 gram/dose powder PO PRN Patient Comments: MIX 17 GRAMS OF POWDER IN 8 OUNCES OF LIQUID AND DRINK ONCE DAILY FOR 10 DAYS, THEN ONCE DAILY NEEDED THEREAFTER pantoprazole 40 mg tablet,delayed release (DR/EC) 40 mg PO DAILY Patient Comments: TAKE 1 TABLET BY MOUTH ONCE DAILY DIRECTED amoxicillin-pot clavulanate 875-125 mg tablet 1 tab PO BID Qty: 14 0RF hydrocodone-homatropine 5-1.5 mg/5 mL syrup 5 ml PO Q6H PRN (Reason: cough) Qty: 60 0RF folic acid 400 mcg tablet 400 mcg PO DAILY Qty: 30 5RF buspirone 10 mg tablet 10 mg PO BID Qty: 60 0RF oxybutynin chloride 2.5 mg tablet 2.5 mg PO HS Qty: 30 5RF atorvastatin 20 mg tablet See Rx Instructions .ROUTE .COMPLEX Qty: 90 0RF Dose Instruction: Take 1 tablet by mouth once daily Rx Instructions: Take 1 tablet by mouth once daily citalopram 40 mg tablet See Rx Instructions .ROUTE .COMPLEX Qty: 90 0RF Dose Instruction: Take 1 tablet by mouth once daily Rx Instructions: Take 1 tablet by mouth once daily ondansetron 4 mg tablet,disintegrating 4 mg PO QID PRN (Reason: nausea and vomiting) Qty: 10 0RF Referrals Follow up/Referrals: Tony Bello MD [Primary Care Provider] - See instructions Activity Restrictions/Add. Instructions Additional Instructions/Restrictions: You were evaluated in the emergency department today. Your CT scan is reassuring. Is likely this is another lipoma. Please follow-up closely with general surgery as scheduled for this tomorrow. You also incidentally have lung nodules found on imaging, for which we recommend nonemergent follow-up with primary care. Clinical Impressions Clinical Impression: Lipoma, Lung nodule Print Language Print Language: Yoruba Discharge ED Provider: Bina Valentine General Adult HPI <JOSE JUAN Castellano - Last Filed: 09/14/24 19:10> General Chief complaint: PAIN Stated complaint: Knot on right side tender and sore Time Seen by Provider: 09/14/24 18:50 Mode of Arrival: Ambulatory Source of Information: Patient Description of Symptoms (Recalled from ER Triage Doc. by RN): pt to the ED with a lump on her right ribcage x 3 days. on assessment area is free of a wound or redness up is tender to the touch. pt has a history of multiple fatty tumors and has an appointment to see Keyonna Melendez tomorrow for them. History of Present Illness HPI narrative: Patient presents for evaluation of right lateral chest wall pain. Patient has a known lipoma and has been evaluated by us recently for this. She was referred to general surgery for evaluation. 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 She denies any fever chills hemoptysis hematochezia melena nausea vomiting diarrhea. Related Data Home Medications ?Medication ?Instructions ?Recorded ?Confirmed pantoprazole 40 mg tablet,delayed 40 mg PO DAILY 08/19/23 07/02/24 release polyethylene glycol 3350 17 g PO PRN 04/07/24 07/02/24 gram/dose oral powder Previous Rx's ?Medication ?Instructions ?Recorded buspirone 10 mg tablet 10 mg PO BID Anxiety #60 tabs 05/31/24 folic acid 400 mcg tablet 400 mcg PO DAILY #30 tabs 05/31/24 oxybutynin chloride 2.5 mg tablet 2.5 mg PO HS #30 tabs 06/22/24 atorvastatin 20 mg tablet See Rx Instructions .Route 06/28/24 .COMPLEX #90 tabs amoxicillin 875 mg-potassium 1 tab PO BID #14 tabs 07/02/24 clavulanate 125 mg tablet hydrocodone-homatropine 5 mg-1.5 5 ml PO Q6H PRN cough #60 mL 07/02/24 mg/5 mL oral syrup ondansetron 4 mg disintegrating 4 mg PO QID PRN nausea and 09/03/24 tablet vomiting #10 tabs citalopram 40 mg tablet See Rx Instructions .Route 09/10/24 .COMPLEX #90 tabs Allergies Allergy/AdvReac Type Severity Reaction Status Date / Time pseudoephedrine (From Allergy Verified 07/02/24 11:13 Sudafed) [facility] <JOSE JUAN Castellano - Last Filed: 09/14/24 19:10> [facility] Disclaimer: The information contained in this section may have been updated after the arlen ent was seen, as this information can be updated by other users. Medical History (Updated 09/14/24 @ 19:54 by Bina Valentine DO) Urge incontinence Pancreatitis Otitis Mandibulofacial dystosis Chronic kidney disease Conjunctivitis Treacher Rondon syndrome Hypertension Hyperlipidemia Pancreas cyst Tenderness of chest wall Bee sting Allergic reaction Periorbital cellulitis Surgical History History of repair of congenital cleft palate History of ear surgery History of eye surgery History of cholecystectomy History of tonsillectomy Family History Other No significant family history Social History Smoking Status: Unknown if ever smoked alcohol intake: never substance use type: denies use current occupational status: unemployed Travel in the last 8 weeks: None household members: spouse and significant other housing: apartment current occupational exposures/hazards: No caffeine: Yes Have you lived/traveled outside US in past 30 days?: No Contact w/someone who lives/traveled outside US past 30 days?: No Exposure to someone with infectious disease in past 14 days?: No Do you have a fever (greater than 100.4 F or 38 C)?: No Have you tested positive for COVID-19: No Exposed to someone with COVID-19 in past 14 days?: No Do you have a sore throat?: No Do you have a cough?: No Do you have any weakness?: No Do you have any diarrhea?: No Are you experiencing any unusual bleeding?: No Do you have any muscle aches/pain?: No Do you have any abdominal pain?: No Are you experiencing loss of taste or smell?: No Other Medical History Have you received the Flu Vaccine for this season: No Have you received the Pneumonia Vaccine: No <JOSE JUAN Castellano - Last Filed: 09/14/24 19:10> ROS Obtained: Yes Systems reviewed as appropriate & no additional complaints except as documented Physical Exam <JOSE JUAN Castellano - Last Filed: 09/14/24 19:10> General General appearance: alert and in no apparent distress Respiratory Respiratory exam: Present normal lung sounds bilaterally Cardiovascular Cardiovascular exam: Present regular rate Neurological Exam Neurological exam: Present alert and oriented X3 Medical Decision Making <JOSE JUAN Castellano - Last Filed: 09/14/24 19:10> Medical Records Medical records reviewed: Yes I reviewed the patient's medical records. Screening: Per USPSTF and CDC recommendations, given the prevalence of disease in our region, it is our hospital?s policy to screen for HIV and viral Hepatitis for all patients aged 18 and over and those with ongoing risk factors. Jatin Inquiry Pt receiving controlled substance: No Vital Signs: 09/14/24 16:30 09/14/24 19:54 Temperature 98.2 F 98.1 F Temperature Source Oral Pulse Rate 80 Pulse Rate [Left Radial] 79 Respiratory Rate 16 16 Blood Pressure 142/72 H Blood Pressure [Right Arm] 146/68 H Blood Pressure Mean [Right Arm] 94 Blood Pressure Source [Right Arm] Automatic Cuff Blood Pressure Position [Right Arm] Sitting 02 Sat by Pulse Oximetry 97 Oxygen Delivery Method Room Air Orders (Tests/Meds): ED MEDICATIONS Discontinued Medications Generic Name Dose Route Start Last Admin Trade Name Freq PRN Reason Stop Dose Admin Acetaminophen 1,000 mg 09/14/24 18:35 09/14/24 18:42 Acetaminophen 500mg Tab PO 09/14/24 18:36 1,000 mg ONCE ONE Administration Ketorolac Tromethamine 30 mg 09/14/24 18:35 09/14/24 18:42 Ketorolac 30mg/Ml Vial IM 09/14/24 18:36 30 mg ONCE ONE Administration Lidocaine 1 each 09/14/24 18:35 09/14/24 18:41 Lidocaine 5% Transdermal Patch TD 09/14/24 18:36 1 each ONCE ONE Administration ORDERS Category Date Time Status CT abdomen pelvis wo con Stat Cat Scan 09/14/24 18:[address] chest wo con Stat Cat Scan 09/14/24 16:55 Completed Medical Decision Narrative: In summary patient is a 54-year-old female who presents to the emergency department for evaluation of right chest wall pain. Patient is hemodynamically stable upon arrival, afebrile. Physical exam is remarkable for tenderness to palpation in the right lateral chest wall. It is tender over the lipoma which is large but soft for removal without erythema cellulitis induration. Breath sounds clear and equal bilaterally to the bases.. Differential diagnosis includes costochondral separation versus possible rib fracture etc. Initial workup will be conducted with CT scan chest, pelvis without contrast. Initial interventions include Tylenol Toradol Lidoderm patch. Initial workup ordered and pending at the time of handoff to Dr. Valentine at 1900 hrs. <Bina Diaz Serge, DO - Last Filed: 09/14/24 23:33> Vital Signs: 09/14/24 16:30 09/14/24 19:54 Temperature 98.2 F 98.1 F Temperature Source Oral Pulse Rate 80 Pulse Rate [Left Radial] 79 Respiratory Rate 16 16 Blood Pressure 142/72 H Blood Pressure [Right Arm] 146/68 H Blood Pressure Mean [Right Arm] 94 Blood Pressure Source [Right Arm] Automatic Cuff Blood Pressure Position [Right Arm] Sitting 02 Sat by Pulse Oximetry 97 Oxygen Delivery Method Room Air Orders (Tests/Meds): ED MEDICATIONS Discontinued Medications Generic Name Dose Route Start Last Admin Trade Name Freq PRN Reason Stop Dose Admin Acetaminophen 1,000 mg 09/14/24 18:35 09/14/24 18:42 Acetaminophen 500mg Tab PO 09/14/24 18:36 1,000 mg ONCE ONE Administration Ketorolac Tromethamine 30 mg 09/14/24 18:35 09/14/24 18:42 Ketorolac 30mg/Ml Vial IM 09/14/24 18:36 30 mg ONCE ONE Administration Lidocaine 1 each 09/14/24 18:35 09/14/24 18:41 Lidocaine 5% Transdermal Patch TD 09/14/24 18:36 1 each ONCE ONE Administration ORDERS Category Date Time Status CT abdomen pelvis wo con Stat Cat Scan 09/14/24 18:[address] chest wo con Stat Cat Scan 09/14/24 16:55 Completed Medical Decision Narrative: In summary patient is a 54-year-old female who presents to the emergency department for evaluation of right chest wall pain. Patient is hemodynamically stable upon arrival, afebrile. Physical exam is remarkable for tenderness to palpation in the right lateral chest wall. It is tender over the lipoma which is large but soft for removal without erythema cellulitis induration. Breath sounds clear and equal bilaterally to the bases.. Differential diagnosis includes costochondral separation versus possible rib fracture etc. Initial workup will be conducted with CT scan chest, pelvis without contrast. Initial interventions include Tylenol Toradol Lidoderm patch. Initial workup ordered and pending at the time of handoff to Dr. Valentine at 1900 hrs. DO Serge: I was consulted by the LEXIE, and we discussed the complexity of the problems being addressed. I approved the treatment and management plan for this patient's care in the emergency department, thus performing a substantive portion of the medical decision making. On my assessment the patient, she sitting upright in no acute distress. She complains of with a painful lump on the chest wall, but no CT scan findings concerning for any acute infectious process or anything emergent. She does have lung nodules, for which I recommended follow-up closely outpatient with primary care. She has general surgery follow-up tomorrow for these lesions. I feel she is appropriate for discharge with plan to proceed with that. She was discharged after all questions were answered Bina Valentine DO Critical Care <JOSE JUAN Castellano - Last Filed: 09/14/24 19:10> Critical Care Time Critical Care Time: No
[2024-09-14] MEDS: LIDOCAINE 5% TRANSDERMAL PATCH 1 EACH TD (18:41)
[2024-09-14] MEDS: KETOROLAC 30MG/ML VIAL 30 MG IM (18:42)
[2024-09-14] MEDS: ACETAMINOPHEN 500MG TAB 1000 MG PO (18:42)
--- NOTE | 2024-09-14 18:42 | CT_ITS ---
PROCEDURE INFORMATION: Exam: CT Abdomen And Pelvis Without Contrast Exam date and time: 09/14/2024 6:53 PM Age: 54 years old Clinical indication: Abdominal pain; Additional info: R sided anteriolateral low chest wall pain TECHNIQUE: Imaging protocol: Computed tomography of the abdomen and pelvis without contrast. Radiation optimization: All CT scans at this facility use at least one of these dose optimization techniques: automated exposure control; mA and/or kV adjustment per patient size (includes targeted exams where dose is matched to clinical indication); or iterative reconstruction. COMPARISON: CT ABDOMEN PELVIS W CON 06/07/2022 10:03 PM FINDINGS: Liver: Normal. No mass. Gallbladder and biliary ducts: There are surgical clips within the gallbladder fossa. Pancreas: Normal. No ductal dilation. Spleen: Multiple benign-appearing calcific densities of the spleen. Adrenal glands: Normal. No mass. Kidneys and ureters: Normal. No hydronephrosis. Stomach and bowel: Unremarkable. No obstruction. No mucosal thickening. Appendix: No evidence of appendicitis. Intraperitoneal space: Unremarkable. No free air. No significant fluid collection. Vasculature: Unremarkable. No abdominal aortic aneurysm. Lymph nodes: Unremarkable. No enlarged lymph nodes. Urinary bladder: Unremarkable as visualized. Reproductive: Unremarkable as visualized. Bones/joints: Moderate loss of intervertebral disc space with degenerative changes involving L2 through S1. Soft tissues: Normal. IMPRESSION: No acute findings.
[2024-09-14 19:54] VITALS: BP 142/72; PULSE 80; RESP 16; TEMP 36.7; O2SAT 98
== END 2024-09-14 19:59 | disposition home or self-care (01) ==
PROVIDERS: Emergency Provider Emergency Medicine; PCP Family Medicine
DX: R07.89 Other chest pain (principal); D17.9 Benign lipomatous neoplasm, unspecified; R91.1 Solitary pulmonary nodule
CPT/HCPCS: 71250; 74176; 96372; 99285; J1885

== ENCOUNTER 2024-09-20 10:17 | Outpatient (CLI) | payer OTHER, SELFPAY ==
--- NOTE | 2024-09-20 10:30 | US_ITS ---
FINAL REPORT CLINICAL HISTORY: lipoma lateral chest wall X2 area COMPARISON: CT chest dated 09/14/2024 FINDINGS: ULTRASOUND SOFT TISSUES OF THE RIGHT LATERAL CHEST WALL TECHNIQUE: Limited sonographic imaging of the soft tissues was obtained of the right lateral chest wall at the region of the palpable abnormality. FINDINGS: There is a hyperechoic soft tissue mass measuring 3 x 3.6 x 1.2 cm. This is relatively avascular and similar in echogenicity to the adjacent fat. Imaging of a second palpable abnormality demonstrates a hyperechoic abnormality measuring 1.7 x 1.0 x 1.8. This is also a vascular. No additional mass or fluid collection is identified. IMPRESSION: 2 abnormalities along the right lateral chest wall are favored to represent lipomas. These were not well-demonstrated on the recent CT. Reviewed, Interpreted and Dictated by Tegan Quiroz MD Transcribed by Emelina Bar Authenticated and . [facility]
== END 2024-09-20 23:59 | disposition home or self-care (01) ==
LOC: RAD 10:18
PROVIDERS: PCP Family Medicine; Visit Provider Surgery
DX: D17.1 Benign lipomatous neoplasm of skin and subcutaneous tissue of trunk (principal)
CPT/HCPCS: 76604

== ENCOUNTER 2024-09-28 10:47 | Outpatient (CLI) | payer OTHER, SELFPAY ==
--- NOTE | 2024-09-28 11:21 | ECG_ITS ---
APPROVED REPORT Exam: Resting ECG HR:81 bpm ECG Measurements Heart Rate 81 AXES MI 153 P 30 QRSd 81 QRS 12 QT 380 T 35 QTc 418 Conclusion SINUS RHYTHM Delayed R wave progression BORDERLINE ECG UNCONFIRMED REPORT Electronically signed by : Tony Mandujano MD 09/29/2024 07:53:45
[2024-09-28 11:44] LABS: Basophils % 0.5 % (0.1-2.0); Eosinophils # 0.1 Kmm3 (0.0-0.4); Eosinophils % 1.6 % (0.1-12.0); Hematocrit 37.6 % (37.0-47.0); Lymphocytes % 22.6 % (10-50); Mean Corpuscular HGB Conc 31.9 g/dL (31.8-35.4); Mean Corpuscular Hemoglobin 27.6 pg (27.0-31.2); Mean Corpuscular Volume 86.6 fl (81-99); Mean Platelet Volume 11.1 fl (7.4-10.4); Monocytes # 0.3 K/mm3 (0.1-1.0); Monocytes % 5.7 % (1.7-9.3); Neutrophils # 3.1 K/mm3 (1.8-7.8); Neutrophils % 69.6 % (37.0-80.0); Nucleated Red Blood Cells # 0 10^3/uL; Nucleated Red Blood Cells % 0 %; Platelet Count 190 K/mm3 (142-424); Red Blood Count 4.34 M/mm3 (4.20-5.40); Red Cell Distribution Width 14.2 % (11.5-17.5); Red Cell Distribution Width-SD 44.6 fL; White Blood Count 4.4 K/mm3 (4.8-10.8)
[2024-09-28 12:55] LABS: Chloride 105 mmol/L (98-107)
[2024-09-28 12:56] LABS: Sodium 140 mmol/L (136-145)
[2024-09-28 12:59] LABS: Blood Urea Nitrogen 12 mg/dl (7-17); Calcium 9.3 mg/dl (8.4-10.2); Carbon Dioxide 26 mmol/L (22.0-30.0); Estimated Glomerular Filt Rate 43 ml/min (>60); GFR (African American) 52 ML/MIN (>60); Glucose 107 mg/dl (74-100)
== END 2024-09-28 23:59 | disposition home or self-care (01) ==
PROVIDERS: PCP Family Medicine; Visit Provider Surgery
DX: Z01.810 Encounter for preprocedural cardiovascular examination (principal); D17.1 Benign lipomatous neoplasm of skin and subcutaneous tissue of trunk; R94.31 Abnormal electrocardiogram [ECG] [EKG]
CPT/HCPCS: 80048; 85025; 93005

== ENCOUNTER 2024-10-01 05:59 | Day surgery (SDC) | payer OTHER, SELFPAY ==
[2024-09-28 13:42] VITALS: BMI 33.9
[2024-10-01] VITALS (10 sets, daily range): BP systolic 115–162; BP diastolic 66–102; PULSE 76–90; RESP 14–18; TEMP 36.3–36.7; O2SAT 96–100
[2024-10-01] MEDS: 0.9 % SODIUM CHLORIDE 1000ML 1,000 ML 25 ML IV (06:15)
[2024-10-01] MEDS: CEFAZOLIN SODIUM 2 GM in 0.9 % SODIUM CHLORIDE 100 ML IV (07:15)
[2024-10-01] MEDS: LIDOCAINE 1% 20ML MDV 20 ML (07:35)
--- NOTE | 2024-10-01 07:45 | P.PNANES_ITS ---
[facility] Disclaimer: The information contained in this section may have been updated after the patient was seen, as this information can be updated by other users. Medical History Urge incontinence Pancreatitis 2022 Otitis Mandibulofacial dystosis Chronic kidney disease Conjunctivitis Treacher Rondon syndrome Hypertension Hyperlipidemia Pancreas cyst Tenderness of chest wall Bee sting Allergic reaction Periorbital cellulitis Surgical History History of repair of congenital cleft palate History of ear surgery History of eye surgery eye implants bilaterally History of cholecystectomy History of tonsillectomy Family History Other Family history of cancer Family history of diabetes mellitus Family history of heart disease Social History (Updated 09/28/24 @ 11:05 by Bryan Engel RN) Smoking Status: Never smoker alcohol intake: never substance use type: denies use current occupational status: unemployed Travel in the last 8 weeks?: None household members: spouse and significant other housing: apartment current occupational exposures/hazards: No caffeine: Yes Have you lived/traveled outside US in past 30 days?: No Contact w/someone who lives/traveled outside US past 30 days?: No Exposure to someone with infectious disease in past 14 days?: No Do you have a fever (greater than 100.4 F or 38 C)?: No Have you tested positive for COVID-19?: No Exposed to someone with COVID-19 in past 14 days?: No Do you have a sore throat?: No Do you have a cough?: No Do you have any weakness?: No Do you have any diarrhea?: No Are you experiencing any unusual bleeding?: No Do you have any muscle aches/pain?: No Do you have any abdominal pain?: No Are you experiencing loss of taste or smell?: No [facility] Anesthesia Checklist Patient Identification Patient Identification: Verbal (Name & ) Structural Data Admitted From: Home Planned Operative Procedure/s: excision neoplasm r flank x 2 NPO Status Verified Time NPO: 00:00 Additional verifications Anesthesia Reactions: No Hx Blood Transfusions: No Blood Transfusion Reaction: No Airway Assessment Mallampati Score:: Class II C-Spine Mobility Assessed: Yes TMJ Mobility Assessed: Yes Dentition: Good Dentition Neurological Assessment Level of Consciousness: Awake, Alert and Appropriate Anesthesia Plan Anesthesia Risk discussed: Yes Anesthesia Plan: Verified ASA Class: II Anesthesia Type: General
--- NOTE | 2024-10-01 08:31 | P.OP_ITS ---
Date of procedure: 10/01/24 Pre-op Diagnosis:: Right chest lipomas (x 2) Post-op Diagnosis:: Same Procedure performed:: Excision of right lateral chest lipoma (total excision 4 cm) Excision of right anterior chest lipoma (total excision 4 cm) Surgeon:: Chapin Acosta MD LAND ACQUISITION SPECIALIST:: Yan Fonseca Anesthesia: local Estimated blood loss (mL): 15 Operative findings:: Somewhat ill-defined lipomatous lesions excised with surrounding adipose tissue Operative note:: After informed consent was obtained the patient was taken to the operating room and placed in the left lateral decubitus position. Her right chest region was prepped and draped in a sterile fashion. After infiltration local anesthetic an incision was made overlying the right lateral chest wall lesion that had been marked prior. A somewhat ill-defined lipomatous lesions was excised with a combination of sharp dissection, blunt dissection, and electrocautery. Dissection was taken to the fascial margin. The deep subcutaneous tissue was reapproximated with Vicryl suture. Skin was then closed with the INSORB stapler. The right anterior chest wall lesion was excised in a similar manner. The skin was also closed in a similar manner. Dressings were applied and the patient was transferred to recovery in stable condition. Condition: stable Disposition: PACU Specimens:: Right lateral chest wall lipoma Right anterior chest wall lipoma Complications:: No immediate
--- NOTE | 2024-10-01 08:39 | EXP.ANES.I ---
[facility] Anesthesia Record Part I Anesthesia Record I Intake, IV Amount: 1,500 Hydration: Adequate Estimated blood loss (mL): 25 Urine output (mL): 0 Blood Pressure: 150/100 SaO2: 98 Pulse Rate: 90 Airway Patency: Patent Respiratory Rate: 14 Temperature: 98 F Patient is:: Awake and Stable Stable to PACU at:: 08:35
--- NOTE | 2024-10-01 13:18 | P.PNANES_ITS ---
[facility] Anesthesia Record Part II Anesthesia Record Part II Discharge Time: 09:05 Destination: Surgical Day Care (OP Surgery) PACU nurse assessment reviewed?: Yes Patient Condition:: Good Anesthesia Complications:: None Swallowing reflex intact?: Yes Airway Patency: Patent Cyanosis?: No Blood Pressure: 132/86 SaO2: 96 Respiratory Rate: 16 Pulse Rate: 81 Temperature: 98 F Mental Status: Alert & Oriented Pain level:: 0 Nausea and/or vomitting:: None Intake, IV Amount: 0 Hydration: Adequate
== END 2024-10-01 09:40 | disposition home or self-care (01) ==
PROVIDERS: PCP Family Medicine; Visit Provider Surgery
PROC: (CPT 11404; principal; 2024-10-01 07:30)
DX: D17.1 Benign lipomatous neoplasm of skin and subcutaneous tissue of trunk (principal)
CPT/HCPCS: 11404 ×2; 96374; J0690; J1100; J2250; J2405; J3010; J7030

== ENCOUNTER 2025-01-21 10:27 | Outpatient (CLI) | payer OTHER, SELFPAY ==
--- OUTSIDE RECORDS SUMMARY | 2025-01-21 10:29 | XMS_ITS | Clinical Summary ---
Author Organization [facility] Address [address] [place] [address] Care Team Providers Care Pneumatic Tube Repairer Name Role Phone Skylar Farley APRN Primary Care Provider [phone] Allergies Active Allergy Reactions Criticality Noted Date Comments Pseudoephedrine Rash Low 03/18/2022 Medications atorvastatin (Lipitor) 20 MG tablet 1 tablet (20 mg). 4 Active azithromycin (Zithromax) 250 MG tablet 3 Active busPIRone (Buspar) 10 MG tablet Take 1 tablet (10 mg) by mouth 2 (two) times a day. Active cholecalciferol (Vitamin D-3) 50 MCG (2000 UT) tablet Take by mouth. Active citalopram (CeleXA) 40 MG tablet Take 1 tablet (40 mg) by mouth 1 (one) time each day. Active cyanocobalamin 100 MCG tablet 9 Active folic acid (Folvite) 400 MCG tablet Take 1 tablet (400 mcg) by mouth 1 (one) time each day. 4 Active meloxicam (Mobic) 15 MG tablet 4 Active ondansetron ODT (Zofran-ODT) 4 MG disintegrating tablet 4 Active pantoprazole (Protonix) 40 MG EC tablet Take 1 tablet (40 mg) by mouth 1 (one) time each day. as directed Active polyethylene glycol (Miralax) 17 GM/SCOOP powder 4 Active Active Problems Problem Noted Date Diagnosed Date Elevated serum creatinine 04/12/2024 Family History Medical History Relation Name Comments Conversions - Other Other deafness or hearing loss Relation Name Status Comments Other Social History Tobacco Use Types Packs/Day Years Used Date Smoking Tobacco: Never Passive Smoke Exposure: Current Smokeless Tobacco: Never Alcohol Use Standard Drinks/Week Comments No 0 (1 standard drink = 0.6 oz pure alcohol) Alcoholic Drinks/day: Denies alcohol consumption Comments Unknown Sex and Gender Information Value Date Recorded Sex Assigned at Not on file Legal Sex Female 7:33 PM EDT Gender Identity Not on file Sexual Orientation Not on file Last Filed Vital Signs Vital Sign Reading Time Taken Comments Blood Pressure 111/75 04/12/2024 2:42 PM EST Pulse 94 04/12/2024 2:42 PM EST Temperature 36.4 C (97.6 F) 04/12/2024 2:42 PM EST Respiratory Rate - - Oxygen Saturation 94% 04/12/2024 2:42 PM EST Inhaled Oxygen Concentration - - Weight 98.4 kg (217 lb) 04/12/2024 2:42 PM EST Height 167.6 cm (5' 6 ) 04/12/2024 2:42 PM EST Body Mass Index 35.02 04/12/2024 2:42 PM EST Plan of Treatment Health Maintenance Due Date Last Done Comments Dental Oral Exam 1970 Dental Prophylaxis 1970 Dental X-Ray: Bitewings 1970 Dental X-Ray: Full Mouth 1970 [facility]-Depression Screening 1970 [facility]-HIV Screening 1970 [facility]-Hepatitis C Screening 1970 [facility]-Infant/Child/Adol SDOH Screenings 1970 [facility]- SDOH Screenings 1988 [facility]-Adult SDOH Screenings 1988 [facility]-Hepatitis B Vaccines (1 of 3 - 19+ 3-dose series) 1989 [facility]-Pap Smear 1991 [facility]-Cervical Cancer Screening 2000 [facility]-HPV/Cotest 2000 CT Colonography 2015 Colonoscopy 2015 FIT-DNA 2015 FIT 2015 FOBT 2015 Sigmoidoscopy 2015 [facility]-Colorectal Cancer Screening 2015 [facility]-Breast Cancer Screening 2020 [facility]-Pneumococcal Vaccine: 50 + Years (1 of 1 - PCV) 2020 [facility]-Zoster Vaccines (1 of 2) 2020 [id number]-16 Vaccine (4 - 2023- season) 2024 06/15/2021, 12/14/2020, 11/16/2020 [facility]-Influenza Vaccine (#1) 01/31/202505/21, 03/24/2020, 04/22/2019 [facility]-DTaP,Tdap,and Td Vaccine s (2 - Td or Tdap) 05/07/2033 05/07/2023 [facility]-Obesity Intervention Completed 04/12/2024 HPV Vaccines Aged Out No longer eligi ble based on patient's age to complete this topic [facility]-HIB Vaccines Aged Out No longer e ligible based on patient's age to complete this topic [facility]-Hepatitis A Vaccines Aged Out No longer eligible based on patient's age to complete this topic [facility]-IPV Vaccines Aged Out No longer e ligible based on patient's age to complete this topic [facility]-Rotavirus Vaccines Aged Out No lo nger eligible based on patient's age to complete this topic Insurance [employer] [facility] MEDICAID [facility] MEDICAID DENTAL Care Teams Pneumatic Tube Repairer Relationship Specialty Start Date End Date Skylar Farley APRN [address] [place], [place] [id number] PCP - General 10/13/20
== END 2025-01-21 23:59 | disposition home or self-care (01) ==
LOC: RAD 10:27
PROVIDERS: PCP Family Medicine; Visit Provider Family Medicine
DX: Z12.31 Encounter for screening mammogram for malignant neoplasm of breast (principal)
CPT/HCPCS: 77063; 77067

== ENCOUNTER 2025-03-29 11:36 | Outpatient (CLI) | payer OTHER, SELFPAY ==
[2025-03-29 16:00] LABS: Albumin Level 3.3 g/dl (3.5-5.0); Chloride 103 mmol/L (98-107); Potassium 4.4 mmoL/L (3.5-5.1); Sodium 136 mmol/L (136-145)
[2025-03-29 16:03] LABS: Alanine Aminotransferase 23 U/L (12-78); Albumin/Globulin Ratio 0.9 (1.1-1.8); Alkaline Phosphatase 109 U/L (38-126); Anion Gap 9.4 mEq/L (5-15); Aspartate Amino Transferase 28 U/L (14-36); Bilirubin,Total 0.5 mg/dl (0.2-1.3); Blood Urea Nitrogen 11 mg/dl (7-17); Calcium 9.4 mg/dl (8.4-10.2); Carbon Dioxide 28 mmol/L (22.0-30.0); Cholesterol 142 mg/dl (140-200); Creatinine,Serum 1.00 mg/dl (0.52-1.04); Estimated Glomerular Filt Rate 58 ml/min (>60); GFR (African American) 70 ML/MIN (>60); Globulin 3.7 g/dL (1.3-3.2); Glucose 77 mg/dl (74-100); Total Protein,Serum 7.0 g/dl (6.3-8.2); Triglycerides 150 mg/dl (30-150)
[2025-03-29 16:04] LABS: HDL Cholesterol 44 mg/dl (40-60)
[2025-03-29 16:44] LABS: Free T4 (Free Thyroxine) 1.17 ng/dl (0.78-2.19)
[2025-03-29 17:00] LABS: Thyroid Stimulating Hormone 1.93 uIU/mL (0.465-4.68)
--- OUTSIDE RECORDS SUMMARY | 2025-03-30 12:52 | XMS_ITS | Clinical Summary ---
Author Organization Publicate Address [address] [place] [address] Care Team Providers Care Beef Trimmer Name Role Phone Physician, No Primary Care Primary Care Provider Unavailable Allergies Active Allergy Reactions Criticality Noted Date Comments Pseudoephedrine Hcl Rash Low 06/03/2022 Medications busPIRone (BUSPAR) 10 MG tablet Take 10 mg by mouth 2 (two) times a day. Active citalopram (CELEXA) 40 MG tablet Take 40 mg by mouth daily. Active folic acid (FOLVITE) 1 MG tablet Take 1 mg by mouth daily. Active cholecalciferol , vitamin D3, (VITAMIN D3) 2,000 units Tab Take by mouth. Active omega 6-zjd-cqd-fish oil (OMEGA-3) 1,000 mg (120 mg-180 mg) capsule Take 1 capsule by mouth 2 (two) times a day. Active Active Problems No known active problems Social History Tobacco Use Types Packs/Day Years Used Date Smoking Tobacco: Never Smokeless Tobacco: Never Tobacco Cessation:Counseling Given: Not Answered [place] Housing Stability Vital Sign Answer Date Recorded What is your living situation today? Not on file 05/30/[address] you li ve. Do you have problems with any of the following? Not on file 05/30/2023 Safety and Environment Answer Date Ankit rded How often does anyone, merlin dover family and friends, physically hurt you? Not on file 07/23/2023 How often does anyone, merlin dover family and friends, insult or talk down to you? Not on file 07/23/2023 How often does anyone, inclu jazzmine family and friends, threaten you with harm? 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 Gender Identity Not on file Sexual Orientation Not on file Last Filed Vital Signs Vital Sign Reading Time Taken Comments Blood Pressure 128/73 06/03/2022 2:40 PM INSTRUMENT LENS INSPECTOR Pulse 83 06/03/2022 2:40 PM INSTRUMENT LENS INSPECTOR Temperature 37.2 C (99 F) 06/03/2022 2:40 PM INSTRUMENT LENS INSPECTOR Respiratory Rate 16 06/03/2022 2:40 PM INSTRUMENT LENS INSPECTOR Oxygen Saturation 95% 06/03/2022 2:40 PM INSTRUMENT LENS INSPECTOR Inhaled Oxygen Concentration - - Weight 97.6 kg (215 lb 3.2 oz) 06/03/2022 2:40 P M INSTRUMENT LENS INSPECTOR Height 167.6 cm (5' 6 ) 06/03/2022 2:40 PM INSTRUMENT LENS INSPECTOR Body Mass Index 34.73 06/03/2022 2:40 PM INSTRUMENT LENS INSPECTOR Plan of Treatment Health Maintenance Due Date Last Done Comments IMM Schedule: Varicella (1 o f 2 - 13+ 2-dose series) 1983 IMM Schedule: Diphtheria, Tetanus, and Pertussis (1 - Tdap) 1989 IMM Schedule: Hepatitis B (1 of 3 - 19+ 3-dose series) 1989 BREAST CANCER SCREENING EVER Y 2 YEARS 2011 Colon Cancer Screening Colonoscopy 2015 Colon Cancer Screening FIT-D NA (Cologuard) (3 year) 2015 Colon Cancer Screening FOBT/FIT (1 year) 2015 Colon Cancer Screening 2015 Sigmoidoscopy (5 year) Colon Cancer Screening 2015 IMM Schedule: Pneumococcal (50+ Years) (1 of 1 - PCV) 2020 IMM Schedule: Zoster (1 of 2) 2020 COVID-19 Vaccine (4 - 2024-2 6 season) 2025 06/15/2021, 12/14/2020, 11/16/2020 IMM Schedule: Influenza (#1) 2025, 04/22/2019 IMM Schedule: Hepatitis A Aged Out No longer eligible based on patient's age to complete this topic IMM Schedule: Meningococcal ACWY (Menhibrix/Menomune) Aged Out No longer elig ible based on patient's age to complete this topic IMM Schedule: Meningococcal B Aged Out No longer eligible based on patient's age to complete this topic IMM Schedule: RSV <20 Months Aged Out No longer eligible based on patient's age to complete this topic Insurance [facility] Care Teams Beef Trimmer Relationship Specialty Start Date End Date Physician, No Primary Care PCP - General Internal Medicine 06/03/22 Additional Source Comments IMPORTANT NOTICES REGARDING PATIENT RECORDS DISCLOSED THROUGH CARE EVERYWHERE:1. If the informationreleased to you contains information about AIDs or HIVtest results, that information has been disclosed to you from records whoseconfidentiality is protected by state law ([place] 214[place]625). State law proh ibitsyou from making any further disclosure of such information relating to AIDS orHIV without the specific written consent of the person to whom such informationpertains, or as otherwise permitted by state law. A general authorization forthe release of medical or other information is NOT sufficient for this purpose.2. If the information released to you contains information about alcohol ordrug abuse diagnosis, treatment for such abuse, or referrals for treatment, andif the release was made by a program as defined in 42 CFR 2.11, thisinformation has been disclosed to you from records protected by Federalconfidentiality rules ( TheFederal rules restrict any use of the information to criminally investigate orprosecute any alcohol or drug abuse patient.3. If the information released to you contains information about a person'smental health or chemical dependency, you may not redisclose or otherwisereveal information concerning the mental health or chemical dependency of thatperson, beyond the purpose for which the disclosure was made, without firstobtaining that person's specific written consent to the redisclosure. [id number].[facility]
--- OUTSIDE RECORDS SUMMARY | 2025-03-30 12:52 | XMS_ITS | Data Portability ---
Author Organization [place] - [facility] - [place] [facility] [place] [facility] ADMIN Address [address] [place] [address] Care Team Providers Care Credit Officer Name Role Phone RUI PELAYO Referring Provider [phone] Assessment Encounter Date Assessment Date Assessment LastModified by Organization Details LastModified Time 01/19/2024 01/19/2024 53-year-old female referred due to recent low serum amylase. She reports a history of idiopathic pancreatitis 6 months ago as well as a history of cystic lesion of the pancreas on CT that was actually felt to be a calcified vessel on EUS on 07/03/22. 1) History of pancreatitis/hi story of calcified pancreatic cyst/low amylase: -Recent MRI obtained in surveillance, most consistent with a small stable pseudocyst. No etiology was found for her prior pancreatitis. She has not experienced recurrence. No further surveillance is likely to be required, unless the patient develops symptoms. 2) NAFLD: Healthy eating habits were discussed at length. Weight is stable. I also recommended she increase her physical activity to try to achieve some weight loss. -Obtain labs today for risk stratification. She has mild ALP elevation with normal AST/ALT. Will contact patient with lab results, plan for f/u [email or web address] Not available 01/19/2024 09:45:51 02/20/2024 02/20/2024 53-year-old female referred due to recent low serum amylase. She reports a history of idiopathic pancreatitis 6 months ago as well as a history of cystic lesion of the pancreas on CT that was actually felt to be a calcified vessel on EUS on 07/03/22. 1) History of pancreatitis/hi story of calcified pancreatic cyst/low amylase: -Recent MRI obtained in surveillance, most consistent with a small stable pseudocyst. No etiology was found for her prior pancreatitis. She has not experienced recurrence. No further surveillance is likely to be required, unless the patient develops symptoms. 2) Hepatic steatosis on imaging: Healthy eating habits were discussed at length. Weight is stable. I also recommended she increase her physical activity to try to achieve some weight loss. -Recent labs show stable mildly elevated ALP with normal AST/ALT. Fibrosure showed N0, F0, S0. Likely simple steatosis. Recommend continued annual lab follow-up with PCP. 3) Nausea: Ondansetron as needed. treat constipation per below. 4) Gaseous abdominal distension: Start Miralax once daily x10 days, then once daily PRN. 5) Abdominal wall nodules: x3 on exam, RUQ, LUQ, LLQ. I have reviewed her recent MRI and these appear to be appreciable on the foremost coronal view. Likely benign lipomas. Monitor. Not available 02/20/2024 14:58:55 Plan of Treatment Reminders Order Date Submit Date Provider Last Modified By Organization Details Last Modified Time Details Appointments None recorded. Lab nonalcoholi c steatohepat itis + fibrosis panel, serum or plasma 2023 024 DELMA [facility], [address], [address], [place], [address], 4 07:13:53 hepatic function panel, serum 2023 024 DELMA [facility], [address], [address], [place], [address], 4 07:13:54 PT/INR 2023 024 DELMA [facility], [address], [address], [place], [address], 4 07:13:55 CBC 2023 024 DELMA [facility], [address], [address], [place], [address], 4 07:13:54 Referral None recorded. Procedures None recorded. Surgeries None recorded. Imaging None recorded. Medication Orders ondansetron 4 mg disintegrat ing tablet [email or web address] [facility], [address] [place], [address], 4 14:55:52 Miralax 17 gram/dose oral powder [address] [facility], [address], [address], 4 14:55:04 Patient TargetsNo targets recorded. Patient InstructionsNo instructions recorded. Reason for Referral None Reported. Results Created Date Observation Date Name Description Value Unit Range Abnormal Flag Note LastModifiedBy Organization Detail LastModifiedTime 01/19/20 24 01/20/2024 FOX FIBRO SURE( R) PLUS methodology: COMMEN T The kiesha mckayla teste d are perfo rmed by Fibro Sure- Speci fic metho ds. Not inten ded for use with other diagn ostic consi derat ions. Not Available [facility] ([facility]) [address], [place], [address], 01/22/2024 07:13:53 01/19/20 24 01/20/2024 FOX FIBRO SURE( R) PLUS interpretati ons: COMMEN T Quant itati ve resul ts of 10 bioch emica ls in combi natio n with age and gende r, are kiesha zed using a compu tatio nal algor ithm to provi de a quant itati ve surro gate marke r (0.0- 1.0) of liver fibro sis (Veguita vir F0-F4 ), hepat ic steat osis (0.0- 1.0, S0-S3 ), and Non-A lcoho lic Steat o-Hep atiti s (FOX ) (0.0- 1.0, N0-N3 ). The absen ce of steat osis (S<0. 40) precl udes the diagn osis of FOX. Fibro sis marke r: In a study of 171 Non-A lcoho lic Fatty Liver Disea se (NAFL D) patie nts where 23% had signi fican t NAFLD fibro sis (Veguita vir F2-F4 ) and 11% had cirrh osis by liver biops y, a fibro sis resul t of >0.3 yield ed a sensi tivit y of 83% and a speci ficit y of 78% for the detec tion of signi fican t fibro sis.[ 1] Steat osis marke r: In a popul ation of 2997 patie nts, where 61% had signi fican t steat osis (>=5% ) on a liver biops y, a steat osis score >0.4 had a sensi tivit y of 79% and a speci ficit y of 50% for ident ifica tion of signi fican t steat osis. [2] FOX marke r: In a popul ation of 1081 NAFLD patie nts, where 51% had at least some FOX by liver biops y, a predi ction of FOX had a sensi tivit y of 72% for ident ifyin g FOX and a speci ficit y of 71%.[ 3] Not Available [facility] ([facility]) [address] [place], [address], 01/22/2024 07:13:53 01/19/2001/20/2024 FOX FIBRO SURE( R) PLUS fibrosis scoring: COMMEN T <=0.2 1 = Stage F0 - No fibro sis 0.21 - 0.27 = Stage F0 - F1 0.27 - 0.31 = Stage F1 - Courtney l fibro sis 0.31 - 0.48 = Stage F1 - F2 0.48 - 0.58 = Stage F2 - Bridg ing fibro sis with few septa 0.58 - 0.72 = Stage F3 - Bridg ing fibro sis with many septa 0.72 - 0.74 = Stage F3 - F4 >0.74 = Stage F4 - Cirrh osis Not Available [facility] ([facility]) [address], [place], [address], 01/22/2024 07:13:53 01/19/2001/20/2024 FOX FIBRO SURE( R) PLUS steatosis scoring COMMEN T <=0.4 0 = S0 - No Steat osis (<5%) 0.40 - 0.55 = S1 - Mild Steat osis (but Clini blake Signi fican t) (5-33 %) >0.55 = S2S3- Moder ate to Sever e Steat osis (Clin icall y Signi fican t) (34-1 00%) Not Available [facility] ([facility]) [address], [place], [address], 01/22/2024 07:13:53 01/19/20 24 01/20/2024 FOX FIBRO SURE( R) PLUS fox scoring COMMEN T <=0.2 5 = N0 - No FOX 0.25 - 0.50 = N1 - Mild FOX 0.50 - 0.75 = N2 - Moder ate FOX >0.75 = N3 - Sever e FOX Not Available [facility] ([facility]) [address], [place], [address], 01/22/2024 07:13:53 01/19/20 24 01/20/2024 FOX FIBRO SURE( R) PLUS limitations: COMMEN T FOX Fibro Sure( R) Plus is recom chintan d for patie nts with suspe cted non-a lcoho lic fatty liver disea se. It is not recom chintan d for patie nts with other liver disea ses. It is also not recom chintan d in patie nts with Gilbe rt Disea se, acute hemol ysis, acute viral hepat itis, drug induc ed hepat itis, bhumi ic liver disea se, autoi mmune hepat itis and/o r extra -hepa tic miranda stasi s. Any of these clini pradeep situa tions may lead to inacc urate quant itati ve predi ction s of fibro sis. Not Available [facility] ([facility]) [address], [place], [address], 01/22/2024 07:13:53 01/19/20 24 01/20/2024 FOX FIBRO SURE( R) PLUS comment: COMMCRUZ T This test was devel oped and its perfo rmanc e dari cteri stics deter mined by [employer] . It has not been clear ed or appro theresa by the Food and Drug Admin istra tion. For jeni dover this repor t pleas e conta ct custo iona servi ce at [phone]. Refer ences : 1. Kalia crisostomo V. et al. Diagn ostic Value of Bioch emica l Marke rs (Fibr oTest ) for the predi ction of Liver Fibro sis in patie nts with Non-A lcoho lic Fatty Liver Disea se. [facility] Gastr oente rolog y 2006; 6:6. 2. Umu Rouse. et al. The Diagn ostic Perfo rmanc e of a Simpl ified Blood Test (Stea toTes t-2) for the Predi ction of Liver Steat osis. Eur J Gastr oente rol Hepat ol. 2019; 31:39 3-402 . 3. Umu Rouse. et al. Diagn ostic perfo rmanc e of a new nonin vasiv e test for nonal cohol ic steat ohepa titis using a simpl ified histo logic al refer ence. Eur J Gastr oente rol Hepat ol. 2017; 30:56 9-577 . Not Available [facility] ([facility]) [address], [place], [address], 01/22/2024 07:13:53 01/19/20 24 01/22/2024 FOX FIBRO SURE( R) PLUS fibrosis score 0.12 0.00-0 .21 Not Available [facility] ([facility]) [address] [place], [address], 01/22/2024 07:13:53 01/19/20 24 01/22/2024 FOX FIBRO SURE( R) PLUS fibrosis stage COMMEN T F0 - No fibro sis Not Available [facility] ([facility]) [address] [place], [address], 01/22/2024 07:13:53 01/19/20 24 01/22/2024 FOX FIBRO SURE( R) PLUS steatosis score 0.38 0.00-0 .40 Not Available [facility] ([facility]) [address] [place], [address], 01/22/2024 07:13:53 01/19/20 24 01/22/2024 FOX FIBRO SURE( R) PLUS steatosis grade COMMEN T S0 - No Steat osis (<5%) Not Available [facility] ([facility]) [address] [place], [address], 01/22/2024 07:13:53 01/19/20 24 01/22/2024 FOX FIBRO SURE( R) PLUS fox score 0.00 0.00-0 .25 Not Available [facility] ([facility]) [address] [place], [address], 01/22/2024 07:13:53 01/19/20 24 01/22/2024 FOX FIBRO SURE( R) PLUS fox grade COMMEN T N0 - No FOX Not Available [facility] ([facility]) [address] [place], [address], 01/22/2024 07:13:53 01/19/20 24 01/22/2024 FOX FIBRO SURE( R) PLUS alpha 2-macroglobu jena, qn 279 mg/dL 110-27 6 above high normal Not Available [facility] ([facility]) [address] [place], [address], 01/22/2024 07:13:53 01/19/20 24 01/22/2024 FOX FIBRO SURE( R) PLUS haptoglobin 166 mg/dL 33-346 Not Available [facility] ([facility]) [address] [place], [address], 01/22/2024 07:13:53 01/19/20 24 01/22/2024 FOX FIBRO SURE( R) PLUS apolipoprote in A-1 134 mg/dL 116-20 9 Not Available [facility] ([facility]) [address] [place], [address], 01/22/2024 07:13:53 01/19/20 24 01/22/2024 FOX FIBRO SURE( R) PLUS bilirubin, total 0.1 mg/dL 0.0-1. 2 Not Available [facility] ([facility]) [address] [place], [address], 01/22/2024 07:13:53 01/19/20 24 01/22/2024 FOX FIBRO SURE( R) PLUS GGT 29 IU/L 0-60 Not Available [facility] ([facility]) [address] [place], [address], 01/22/2024 07:13:53 01/19/20 24 01/22/2024 FOX FIBRO SURE( R) PLUS ALT (SGPT) p5p 27 IU/L 0-40 Not Available [facility] ([facility]) [address] [place], [address], 01/22/2024 07:13:53 01/19/20 24 01/22/2024 FOX FIBRO SURE( R) PLUS AST (SGOT) p5p 21 IU/L 0-40 Not Available [facility] ([facility]) [address] [place], [address], 01/22/2024 07:13:53 01/19/20 24 01/22/2024 FOX FIBRO SURE( R) PLUS cholesterol, total 157 mg/dL 100-19 9 Not Available [facility] ([facility]) [address] [place], [address], 01/22/2024 07:13:53 01/19/20 24 01/22/2024 FOX FIBRO SURE( R) PLUS glucose, serum 81 mg/dL 70-99 Not Available [facility] ([facility]) [address] [place], [address], 01/22/2024 07:13:53 01/19/20 24 01/22/2024 FOX FIBRO SURE( R) PLUS triglyceride s 126 mg/dL 0-149 Not Available [facility] ([facility]) [address], [place], [address], 01/22/2024 07:13:53 01/19/20 24 01/20/2024 CBC, PLATE LET, NO DIFFE RENTI AL WBC 5.4 x10e3 /uL 3.4-10 .8 normal Not Available [facility] ([facility]) [address], [place], [address], 01/22/2024 07:13:54 01/19/2001/20/2024 CBC, PLATE LET, NO DIFFE RENTI AL RBC 4.35 x10e6 /uL 3.77-5 .28 normal Not Available [facility] ([facility]) [address], [place], [address], 01/22/2024 07:13:54 01/19/20 24 01/20/2024 CBC, PLATE LET, NO DIFFE RENTI AL hemoglobin 13.0 g/dL 11.1-1 5.9 normal Not Available [facility] ([facility]) [address], [place], [address], 01/22/2024 07:13:54 01/19/2001/20/2024 CBC, PLATE LET, NO DIFFE RENTI AL hematocrit 40.5 % 34.0-4 6.6 normal Not Available [facility] ([facility]) [address], [place], [address], 01/22/2024 07:13:54 01/19/2001/20/2024 CBC, PLATE LET, NO DIFFE RENTI AL MCV 93 fL 79-97 normal Not Available [facility] ([facility]) [address], [place], [address], 01/22/2024 07:13:54 08/19/01/20/2024 CBC, PLATE LET, NO DIFFE RENTI AL MCH 29.9 pg 26.6-3 3.0 normal Not Available [facility] ([facility]) [address], [place], [address], 01/22/2024 07:13:54 01/19/20 24 01/20/2024 CBC, PLATE LET, NO DIFFE RENTI AL MCHC 32.1 g/dL 31.5-3 5.7 normal Not Available [facility] ([facility]) [address], [place], [address], 01/22/2024 07:13:54 01/19/20 24 01/20/2024 CBC, PLATE LET, NO DIFFE RENTI AL RDW 14.4 % 11.7-1 5.4 Not Available [facility] ([facility]) [address], [place], [address], 01/22/2024 07:13:54 01/19/20 24 01/20/2024 CBC, PLATE LET, NO DIFFE RENTI AL platelets 202 x10e3 /uL 150-45 0 normal Not Available [facility] ([facility]) [address], [place], [address], 01/22/2024 07:13:54 01/19/20 24 01/20/2024 CBC, PLATE LET, NO DIFFE RENTI AL NRBC MELTER LOADER Not Available [facility] ([facility]) [address] [place], [address], 01/22/2024 07:13:54 01/19/20 24 01/20/2024 HEPAT IC FUNCT ION PANEL (7) protein, total 6.7 g/dL 6.0-8. 5 normal Not Available [facility] ([facility]) [address] [place], [address], 01/22/2024 07:13:54 01/19/20 24 01/20/2024 HEPAT IC FUNCT ION PANEL (7) albumin 4.2 g/dL 3.8-4. 9 normal Not Available [facility] ([facility]) [address] [place], [address], 01/22/2024 07:13:54 01/19/20 24 01/20/2024 HEPAT IC FUNCT ION PANEL (7) bilirubin, total 0.4 mg/dL 0.0-1. 2 normal Not Available [facility] ([facility]) [address] [place], [address], 01/22/2024 07:13:54 01/19/20 24 01/20/2024 HEPAT IC FUNCT ION PANEL (7) bilirubin, direct 0.13 mg/dL 0.00-0 .40 normal Not Available [facility] ([facility]) [address] [place], [address], 01/22/2024 07:13:54 01/19/20 24 01/20/2024 HEPAT IC FUNCT ION PANEL (7) alkaline phosphatase 133 IU/L 44-121 above high normal Not Available [facility] ([facility]) [address] [place], [address], 01/22/2024 07:13:54 01/19/20 24 01/20/2024 HEPAT IC FUNCT ION PANEL (7) AST (SGOT) 19 IU/L 0-40 normal Not Available [facility] ([facility]) [address] [place], [address], 01/22/2024 07:13:54 01/19/20 24 01/20/2024 HEPAT IC FUNCT ION PANEL (7) ALT (SGPT) 25 IU/L 0-32 normal Not Available [facility] ([facility]) [address] [place], [address], 01/22/2024 07:13:54 01/19/20 24 01/20/2024 PROTH ROMBI N TIME (PT), SERIA L INR 1.0 0.9-1. 2 Refer ence inter barbara is for non-a ntico agula vickey patie nts. Sugge sted INR thera peuti c range for Vitam in K antag onist thera py: Stand tao Dose (mode rate inten sity thera peuti c range ): 2.0 - 3.0 Highe r inten sity thera peuti c range 2.5 - 3.5 Not Available [facility] ([facility]) [address], [place], [address], 01/22/2024 07:13:55 01/19/20 24 01/20/2024 PROTH ROMBI N TIME (PT), SERIA L prothrombin time 10.4 sec 9.1-12 .0 normal Not Available [facility] ([facility]) [address], [place], [address], 01/22/2024 07:13:55 01/19/20 24 01/20/2024 PROTH ROMBI N TIME (PT), SERIA L pdf . Not Available [facility] ([facility]) [address], [place], [address], 01/22/2024 07:13:55 01/14/20 24 01/13/2024 MRI ABD w/w/O [address] [place] [address] Phone: Fax: Name: TYESHA MACDONALD MS Exam Date: 024 : 1969 Age 53 years Gender : F Access ion: [id number] Physic ashley: JAMES BARKER Facilpete ty: [facility] Facili ty HSV: Outpat ient Exam: MRI ABD W/W/O MRI ABDOME N WITHOU T AND WITH CONTRA ST HISTOR Y:Pseu docyst on pancre as. COMPAR VERENICE:C T Abdome n 2022. TECHNI QUE:Mu ltipar ametri c imagin g of the abdome n with and withou t intrav enous contra st. FINDIN GS: LIVER: Unrema rkable . BILIAR Y: Unrema rkable . PANCRE : T2 hypoin tense and minima lly T1 hyperi ntense lesion measur ing 2.5 x 2.0 cm. This does not demons trate enhanc ement on post gadoli nium sequen cesar. This lesion measur ed 2.4 x 2.2 cm on the prior CT from 023. SPLEEN : Unrema rkable . ADRENA LS: Unrema rkable . URINAR Y TRACT: Benign cyst in the mid to superi or pole the right kidney measur ing 2.2 cm. AORTA/ VASCUL AR: No abdomi nal aortic aneury sm. LYMPH NODES: No adenop athy. PERITO NEUM: Unrema rkable . BOWEL: Unrema rkable . SKELET AL: No suspic ious osseou s lesion s. ADDITI ONAL FINDIN GS: None. IMPRES TOYIN: T2 hypoin tense and minima lly T1 hyperi ntense lesion in the pancre atic head measur ing 2.5 x 2.0 cm. This does not demons trate enhanc ement on post gadoli nium sequen cesar. This lesion is simila r in size to prior CT from 023 where it measur ed 2.4 x 2.2 cm. This may repres ent a pseudo cyst from prior pancre atitis . Electr onical ly signed by:Murali zuniga MD12/31 09:07 AM EDT RP Workst ation: [id number] Dictat ed By: Rory Martinez Transc ribed By: Transc ribed On: 9:42 AM Electr onical ly signed by: Rory Martinez Thank you for referr TYESHA Bell MS to [facility] al. Legall y authen ticate d by DWIGHT SUNG 01-12 09:42: 52 CC'ed Logic: Orderi ng Provid er: RUT JAMES Attend ing Provid er: RUT STILL Referr ing Provid er: RUT BAEZH Admitt ing Provid er: RUT STILL [email or web address] [facility] [address], [place], [address], 01/19/2024 13:17:55 03/14/20 24 03/14/2024 imagi ng inter preta tion No observ ation record ed. [email or web address] [place] [address], [place], [address], 03/15/2024 08:35:08 Result Notes None recorded. 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, bilateral 734266639 Active 2021 TAI SKAGGS [address], [place], [address] , [place] - [facility] [place] 2 13:41:36 Nausea and vomiting 13206529 Active 2022 Kelli Brown NP [address], [address], [place], [address] , [place] [facility] [place] & [place] 3 10:25:43 CT of abdomen abnormal 3737420657597 9107 Active 2022 Kelli Brown NP [address], [address], [place], [address] , [place] [facility] [place] 3 10:25:43 Steatotic liver disease 897640166 Active 2022 Kelli Brown NP [address], [address], [place], [address] , [place] [facility] [place] 3 10:25:43 Gastroesop hageal reflux disease without esophagiti s 885290343 Active 2022 Kelli Brown NP [address], [address], [place], [address] , [place] [facility] & [place] 3 10:26:05 Abnormal radiograph ic imaging of pancreas 229043200 Active 2023 James Barker PA-C [address], [place], [address] , [place] - [facility] - [place] & [place] 4 10:49:00 Sensorineu ral hearing loss 11608620 Active 2023 TAI SKAGGS [address], [place], [address] , [place] [facility] [place] 4 11:16:53 Distension of abdomen caused by intestinal gas 747173874 Active 2023 James Barker PA-C [address], [place], [address] , [place] [facility] [place] 4 14:54:05 Nausea 970475943 Active 2023 James Barker PA-C [address] [facility], [place], [address] , [place] - [facility] [place] & [place] 4 14:54:09 Problem Notes None recorded. Procedures Surgical History Date Name Laterality Status Provider Name and Address Organization Details Recorded Time 01/19/20 24 Procedure Note completed Ayleen Guy [place] [facility] [place] 01/19/2024 09:27:56 01/14/20 22 completed Natasha [place] [facility] [place] 09/16/2022 13:37:15 10/10/19 22 Date of Last Colonoscopy completed Natasha [place] - [facility] [place] & [place] 09/16/2022 13:37:15 09/16/19 22 Date of Last Pap Smear completed Natasha [place] [facility] [place] 09/16/2022 13:37:15 endoscopic ultrasound examination of pancreas completed Kelli Brown NP [address] [place] [address], [address], [place], [address], [place] [facility] [place] 03/05/2023 10:31:21 Cholecystectomy completed Odilia GOLDBERG - [facility] - [place] & [place] 04/16/2022 09:38:07 tonsilectomy/adenoi ds completed Odilia CAMPA [facility] & [place] 04/16/2022 09:38:15 procedure on ear completed Odilia CAMPA [facility] & [place] 04/16/2022 09:38:29 repair of cleft palate completed Odilia CAMPA [facility] & [place] 04/16/2022 09:38:39 Imaging Results None recorded. Procedure Notes None recorded. Medical Equipment None Reported. Allergies Allergen ID Allergen Name Allergen Category Reaction Reaction Severity Criticality Documentation Date Start Date Code Code System Note Provider Name and Address Organization Details Recorded Time 28079 Sudafed medicatio n Not available Not available Not available 04/16/2022 2 RxNorm ASHLYN Acevedo [facility] & [place] 09:36:24 Medications Name Sig Start Date Stop Date Status Note LastModified by Organization Details LastModified Time celecoxib 200 mg capsule TAKE 1 CAPSULE BY MOUTH ONCE DAILY 11/18 completed Not Available Not Available Not Available promethazin e-DM 6.25 mg-15 mg/5 mL oral syrup TAKE 7.5 ML BY MOUTH EVERY 6 HOURS NEEDED FOR COUGH active Not Available Not Available No t Available venlafaxine ER 37.5 mg capsule,ext ended release 24 hr Take 1 capsule every day by oral route for 30 days. 2023 active Not Available Not Available Not Avai lable doxycycline hyclate 100 mg capsule TAKE 1 CAPSULE BY MOUTH TWICE DAILY FOR 7 DAYS active Not Available Not Available No t Available atorvastati n 20 mg tablet TAKE 1 TABLET BY MOUTH ONCE DAILY active Not Available Not Available No t Available citalopram 40 mg tablet TAKE 1 TABLET BY MOUTH ONCE DAILY active Not Available Not Available No t Available cetirizine 10 mg tablet TAKE 1 TABLET BY MOUTH ONCE DAILY NEEDED ALLERGY SYMPTOMS active Not Available Not Available No t Available azithromyci n 250 mg tablet TAKE 2 TABLETS BY MOUTH ON DAY 1, AND THEN TAKE 1 TABLET BY MOUTH ONCE A DAY ON DAY 2 THROUGH DAY 5 active Not Available Not Available No t Available hydrocodone 5 mg-acetamin ophen 325 mg tablet TAKE ONE TABLET BY MOUTH EVERY 6 HOURS NEEDED FOR PAIN active Not Available Not Available No t Available meloxicam 15 mg tablet TAKE 1 TABLET BY MOUTH ONCE DAILY 11/18 completed Not Available Not Available Not Available folic acid 400 mcg tablet TAKE 1 TABLET BY MOUTH ONCE DAILY active Not Available Not Available No t Available baclofen 20 mg tablet TAKE 1 TABLET BY MOUTH TWICE DAILY FOR 10 DAYS 12/17 completed Not Available Not Available Not Available meloxicam 7.5 mg tablet TAKE 1 TABLET BY MOUTH ONCE DAILY NEEDED 07/07 completed Not Available Not Available Not Available amoxicillin 875 mg tablet TAKE 1 TABLET BY MOUTH TWICE DAILY 12/17 completed Not Available Not Available Not Available benzonatate 100 mg capsule TAKE 1 CAPSULE BY MOUTH THREE TIMES DAILY NEEDED FOR COUGH active Not Available Not Available No t Available pantoprazol e 40 mg tablet,ricky yed release TAKE 1 TABLET BY MOUTH ONCE DAILY DIRECTED active Not Available Not Available No t Available erythromyci n 5 mg/gram (0.5 %) eye ointment INSTILL 0.5 INCH INTO THE EYE(S) THREE TIMES A DAY active Not Available Not Available No t Available buspirone 10 mg tablet TAKE 1 TABLET BY MOUTH TWICE DAILY FOR ANXIETY active Not Available Not Available No t Available hydrocodone -homatropin e 5 mg-1.5 mg/5 mL oral solution TAKE 5 ML BY MOUTH EVERY 6 HOURS NEEDED FOR COUGH active Not Available Not Available No t Available polyethylen e glycol 3350 17 gram/dose oral powder MIX 17 GRAMS OF POWDER IN 8 OUNCES OF LIQUID AND DRINK ONCE DAILY FOR 10 DAYS, THEN ONCE DAILY NEEDED THEREAFTE R active Not Available Not Available No t Available methylpredn isolone 4 mg tablets in a dose pack TAKE BY MOUTH DIRECTED ON INSIDE OF PACKAGE active Not Available Not Available No t Available ondansetron 4 mg disintegrat ing tablet DISSOLVE 1 TABLET IN MOUTH 4 TIMES DAILY NEEDED FOR NAUSEA AND VOMITING active Not Available Not Available No t Available fluticasone propionate 50 mcg/actuati on nasal spray,suspe nsion USE 1 SPRAY(S) IN EACH NOSTRIL ONCE DAILY NEEDED FOR ALLERGY SYMPTOMS active Not Available Not Available No t Available naproxen 500 mg tablet TAKE 1 TABLET BY MOUTH EVERY 12 HOURS WITH FOOD OR MILK 05/15 completed Not Available Not Available Not Available amoxicillin 875 mg-potassiu m clavulanate 125 mg tablet TAKE 1 TABLET BY MOUTH TWICE DAILY active Not Available Not Available No t Available Vitamin D3 500 active Not Available Not Av ailable Not Available Gavilyte-C 240 gram-22.72 gram-6.72 gram-5.84 gram oral solution TAKE 240ML BY MOUTH EVERY 10 MINUTES UNTIL FECAL EFFLUENT IS CLEAR 04/16 completed Not Available Not Available Not Available Fish Oil 1,000 mg (120 mg-180 mg) capsule Take 1 capsule every day by oral route for 90 days. 07/07 completed Not Available Not Available Not Available Clenpiq 10 mg-3.5 gram-12 gram/175 mL oral solution DRINK FIRST 175ML DOSE AT 5-9PM EVENING BEFORE COLONOSCO PY, SECOND DOSE 175ML THE NEXT DAY APPROXIMA TELY 5 HOURS BEFORE COLONOSCO PY active Not Available Not Available No t Available Vitals Date Recorded Body height Body mass index (BMI) Body weight Body temperature Oxygen saturation Oxygen saturation in Arterial blood by Pulse oximetry Heart rate Heart rate Systolic And Diastolic Provider Name and Address Organization Details Last Updated DateTime 4 165.1 cm 36.3 kg/m2 73860.2 1 g 97.9 [degF] 98 % 98 % 72 /min 78 /min 123/79 mm[Hg] Sandra GOLDBERG [facility] & [place] 4 08:35:02 Date Recorded Body height Body mass index (BMI) Body weight Body temperature Oxygen saturation Oxygen saturation in Arterial blood by Pulse oximetry Heart rate Heart rate Systolic And Diastolic Provider Name and Address Organization Details Last Updated DateTime 4 165.1 cm 35.4 kg/m2 61233.1 7 g 98 [degF] 98 % 98 % 76 /min 74 /min 124/80 mm[Hg] Sandra GOLDBERG [facility] & [place] 4 09:53:27 Social History Question Answer Notes LastModified by Organizat ion Details LastModified Time Tobacco Smoking Status Never Smoker Odilia boggs ASHLYN Escobar BRITTA [facility] & [place] 04/16/2022 09:38:00 Do You Have An Advance Directive? Yes Information not available 09/16/2022 Are You Blind Or Do You Have Difficulty Seeing? No Information not available 09/16/2022 What Is Your Level Of Caffeine Consumption? Occasional Information not available 07/08/2023 What Was The Date Of Your Most Recent Tobacco Screening? 11/19/2023 [email or web address] Information not available 11/19/2023 Are You Passively Exposed To Smoke? No Information not available 09/16/2022 Has Tobacco Cessation Counseling Been Provided? No Information not available 07/08/2023 Sex: Female Functional Status Question Answer Note LastModified by Organizat ion Details LastModified Time Do you use any illicit or recreational drugs? No Information not available 05/15/2022 Do you or have you ever used any other forms of tobacco or nicotine? No Information not available 07/08/2023 What is your level of alcohol consumption? None Information not available 05/15/2022 What is your exercise level? Moderate Information not available 09/16/2022 Mental Status None recorded. Family History Relationship Description Onset Age of this Age Resolved Age Notes LastModified by Organization Details LastModified Time Mother Carcinoma of breast Not available 09/2024 11:13:06 Mother Diabetes mellitus [email or web address] Not available 09/2024 11:13:07 Mother Hypertensive disorder [email or web address] Not available 04/24 14:07:40 Mother Myocardial infarction pt. added direct ly (01/01) [email or web address] Not available 01/01/2025 12:42:18 Father Hypertensive disorder [email or web address] Not available 04/24 14:07:47 Father Diabetes mellitus [email or web address] Not available 09/2024 11:13:07 Father Heart disease [email or web address] Not available 04/24 14:08:09 Medical History Condition Response Anxiety Disorder Y Arthritis Y Ear or Hearing Problems Y High Cholesterol N Gynecological History Statement/Question Response Abnormal Pap N 01/13/2022 Date of Last Colonoscopy 10/09/2021 Sexually Active? Y Menses Monthly N Date of Last Pap Smear 09/15/2021 Current Control Method None Obstetrics History GPAL:G 0 P 0 0 0 0 Immunizations Vaccine Type Date Status Note Provider Nam e and Address Organization Details Recorded Time COVID-19, mRNA, LNP-S, PF, 100 mcg/0.5mL dose or 50 mcg/0.25mL dose 06/15/2021 completed Susanne Paulino null, [place] [facility] [place] & [place] 05/15/2022 10:19:51 COVID-19, mRNA, LNP-S, PF, 100 mcg/0.5mL dose or 50 mcg/0.25mL dose 12/14/2020 completed Susanne Gilvin null, [place] [facility] [place] 05/15/2022 10:19:51 Influenza, recombinant, quadrivalent, PF 03/24/2020 completed Susanne Gilvin null, [place] [facility] [place] 05/15/2022 10:19:51 COVID-19, mRNA, LNP-S, PF, 100 mcg/0.5mL dose or 50 mcg/0.25mL dose 11/16/2020 completed Susanne Paulino null, [place] [facility] [place] [facility] [place] 05/15/2022 10:19:51 Influenza, split virus, quadrivalent, PF 04/22/2019 completed Susanne Paulino null, [place] [facility] [place] [facility] [place] 05/15/2022 10:19:51 Influenza, split virus, quadrivalent, PF 05/07/2023 completed JOSE UGALDE NP [address] [place] [address], [id number], [place] [facility] [place] & [place] 06/10/2023 09:37:33 zoster recombinant 05/07/2023 completed JOSE UGALDE NP [address] [place] [address], [address], [place] [facility] [place] & [place] 06/10/2023 09:37:33 Tdap 05/07/2023 russell UGALDE NP [address] [place] [address], [id number], [place] [facility] [place] 06/10/2023 09:37:33 Past Encounters Encounter ID Performer Location Encounter Start Date Encounter Closed Date Diagnosis/Indication Diagnosis SNOMED-CT Code Diagnosis ICD10 Code Diagnosis IMO Codes Diagnosis Note [id number] [facility] [address] [address] 03/20/2022 13:20:11 03/20/2022 13:47:11 Mixed conductive and sensorineural hearing loss, bilateral 611151053 H90.6 [id number] [facility] [place] [id number] [address] [facility] [place] [address] 04/09/2022 09:23:05 04/09/2022 10:33:19 Mixed conductive and sensorineural hearing loss, bilateral 685362400 H90.6 [id number] [facility] of [address], [facility] [place] [address] 04/17/2022 11:04:10 04/17/2022 11:16:53 Sensorineural hearing loss 58123218 H90.3 Mixed cond uctive and sensorineural hearing loss, bilateral 151210918 H90.6 [id number] Rui Pelayo [place] [address] 04/24/2022 13:47:32 04/24/2022 14:42:33 Mass of pancreas 614042434 K86.89 The patient will need endoscopic ultrasound for sampling of the mass, and possibly lymph nodes as well. No definite etiology based on CT scan. Check labs as per below, CA 19 9. Epigastric pain 55779970 R10.13 uncertain etiology, only to palpation. No recent episodes of pancreatit is Lymphadenopathy 71689693 R59.0 Peripancre atic adenopthy [id number] JOSE UGALDE NP [facility] [address] [address] 05/15/2022 09:53:47 05/29/2022 09:01:25 Pain of multiple joints 73110907 M25.50 discussed exerciseDi scussed medication regimen as well as diet and exercise modificati on. Patient will apply heat/ice as needed for pain relief. Follow up in 3 months. Decreased renal function 69078296 R94.4 recheck lab work today, drawn in clinic by leonila NSAIDS, stay hydratedme loxicam dose decreased and only to be used as needed for severe Mixed hyperlipidemia 267 460359 E78.2 Patient advised to exercise, eat a prudent diet and lose weight as appropriat e. Vitamin D deficiency 347 14266 E55.9 recheck lab work today Anemia 224893916 D64.9 recheck lab work today Hyperglycemia 42441764 R 73.9 awaiting [id number] forced diet and lifestyle changes Depressive disorder 1001 7787 F32.A denies SI/HIcontr olled [id number] Rui Pelayo M.D [facility] [address] [place] [address] [place] [address] 07/10/2022 14:24:39 07/11/2022 11:42:15 Nausea and vomiting 30312750 R11.2 Uncertain etiology. No mention of upper GI pathology on EUS report. CT of abdo men abnormal 2933704339 5338788 R93.5 Calcified cyst noted on CT scans previously . PE was done identify any such lesion, felt to be calcified blood vessels. Patient did have an episode of pancreatit is in 2011, this may represent a calcified pancreatic pseudocyst . She has had multiple imaging studies, at least 3 CT scans as well as the EUS. At this juncture we will continue to monitor. Consider repeat imaging in 1 year. Steatotic liver disease 108011585 K76.0 noted on EUS. I did discuss in detail with her increased physical activity, increase water intake, weight loss with the use of weight watchers. [id number] JOSE UGALDE NP [facility] [address] [place] [address] 11/11/2022 09:08:27 11/11/2022 10:16:19 Mixed hyperlipidemia 109680383 E78.2 Patient advised to exercise, eat a prudent diet and lose weight as appropriat e. Depressive disorder 9915 7107 F32.A denies SI/HIcontr olledconti nue medication as prescribed f/u in 6 months for annual Anemia 219049457 D64.9 asymptomat ic Gastroesop hageal reflux disease without esophagitis 157274470 K21.9 Avoid spicy foods, carbonated beverages, lying down 30 minutes to 1 hour after eatingEat smaller portion sizestake medication s as prescribed Weight management Acute low back pain 6198 65596 M54.50 restheatin g padmassage baclofen as directedf/ u if symptoms persist or worsen [id number] [facility] [id number] [facility], [place] [address] 10/08/2022 09:42:59 10/08/2022 09:55:01 Mixed conductive and sensorineural hearing loss, bilateral 037372035 H90.6 [id number] Wanda Barnard APRN [facility] [address] [facility] [address] 12/17/2022 15:14:39 12/17/2022 16:06:39 Dysfunction of left eustachian tube 6789454368 709898 H69.92 take medrol as prescribed take cetirizine as prescribed increase water intakemoni tor for worsening symptoms [id number] Kelli Brown NP [facility] [address] [facility] [place] [address] 03/05/2023 09:51:58 03/05/2023 11:12:17 CT of abdomen abnormal 7298359205 3198358 R93.5 Calcified cyst noted on CT scans previously . EUS 07/[address] uKmar showed no pancreatic cyst identified and suspected that abnormalit y noted on prior CT scans secondary to calcified vessels. She has had multiple imaging studies including CT scans as well as EUS. Will continue to monitor and consider repeat imaging 07/2023 Steatotic liver disease 893787451 K76.0 Previously noted on EUS. She has lost 8 pounds since her last clinic visit. I have recommende d continued weight loss with strict low fat diet and increased exercise. This was discussed with patient and at great length today. Gastroesop hageal reflux disease without esophagitis 005963243 K21.9 Controlled with Protonix 40 mg po daily. Will send refills today. [id number] Ran Wall MD [facility] [address] [place] [address] 05/07/2023 08:40:28 05/07/2023 10:00:32 Adult health examination 928225235 Z00.00 Patient presented to office today for their Annual Wellness Visit. Education was provided on healthy nutrition, including a diet rich in fruits and vegetables , minimizing simple carbohydra mckayla, salt, and saturated fats. Encouraged regular cardiovasc ular exercise such as walking at least 30 minutes daily, 5 times per week. Emphasized preventive health measures and educated pt on fall prevention and community- based lifestyle interventi ons to help reduce health risks and promote healthy living. Mixed anxi ety and depressive disorder 266122234 F41.8 controlled denies SI/HI Mixed hyperlipidemia 267 887586 E78.2 Patient advised to exercise, eat a prudent diet and lose weight as appropriat e. Vitamin D deficiency 347 16489 E55.9 recheck lab work today Anemia 378791931 D64.9 rechect lab work today Hepatitis C screening 41 4428784 Z11.59 once a lifetime screening Abdominal pain 44502516 R10.9 hx of pancreatit is, intermitte nt pain; no known trigger; not painful todayER if any urgent signs or symptoms arise Administra tion of influenza vaccine 30346901 Z23 Administra tion of viral vaccine 04233657 Z23 [id number] James Barker PA-C [facility] [address] [address] 07/08/2023 09:39:23 07/08/2023 10:49:32 Steatotic liver disease 995655450 K76.0 History of pancreatitis 8955444423 9107 Z87.19 Abnormal r adiographic imaging of pancreas 936721812 R93.3 [id number] [facility] [address] [place] [address] 08/06/2023 10:11:43 08/06/2023 10:37:08 Sensorineural hearing loss 18471776 H90.3 [id number] [facility] [place] [address] [facility] [place] [address] 10/14/2023 09:41:09 10/14/2023 10:12:22 Mixed conductive and sensorineural hearing loss, bilateral 909447358 H90.6 [id number] JOSE UGALDE NP [facility] [address] [place] [id number] 11/19/2023 08:35:49 11/20/2023 08:24:30 Mixed hyperlipidemia 722658668 E78.2 Patient advised to exercise, eat a prudent diet and lose weight as appropriat e. Anemia 185820080 D64.9 rechect lab work today Vitamin D deficiency 347 86253 E55.9 recheck lab work today Menopausal symptom 69876 002 N95.1 will check BRCA before hormonal therapy Menopausal flushing 1984 13670 N95.1 Family his tory of breast cancer 746340600 Z80.3 recommend testing due to mother with hx, unsure if genetic component present Gastroesop hageal reflux disease without esophagitis 725854771 K21.9 reports bloody refluxdeni es vomitingad vised to stop celebrex and all NSAIDSwill mail caller today and make her a follow upER if urgent signs or symptoms arise [id number] James Barker PA-C [facility] [place] [address] 01/19/2024 08:19:44 01/19/2024 09:17:18 Steatotic liver disease 639046971 K76.0 History of pancreatitis 2962184598 9107 Z87.19 Abnormal r adiographic imaging of pancreas 722182318 R93.3 [id number] James Barker PA-C [facility] [address] [address] 02/20/2024 09:26:10 02/20/2024 10:28:28 Steatotic liver disease 893653235 K76.0 History of pancreatitis 1183987759 9107 Z87.19 Abnormal r adiographic imaging of pancreas 758182520 R93.3 Distension of abdomen caused by intestinal gas 886749921 R14.0 Nausea 832449142 R11.0 [id number] [facility] [address] [place] [address] 10/26/2024 12:57:58 10/26/2024 13:10:03 Sensorineural hearing loss 10262042 H90.3 [id number] [facility] [address] [place] [address] 12/07/2024 12:43:39 12/07/2024 13:03:37 Sensorineural hearing loss 76335082 H90.3 [id number] [facility] [address] [facility] [address] [place] [address] 01/04/2025 11:13:03 01/04/2025 11:25:45 Sensorineural hearing loss 73751105 H90.3 Health Concerns Section Related Observation LastModified by Organization Detai ls LastModified Time None Recorded Concern Status LastModified by Organization Details LastModified Time None Recorded Advance Directives Directive Y: Payers Insurance Date Sequence Insurance Name Policy Number Policy Anderson Covered Member ID Anderson Member ID Guarantor Name 05/07/2023 1 [employer] (MEDICAID REPLACEMENT - HMO) [id number] Tyesha Sullivan [id number] Tyesha Sullivan 02/05/2025 1 [employer] [facility] (MEDICAID HMO) Tyesha Sullivan [id number] Tyesha Sullivan 10/01/2021 1 UNSPECIFIED REMIT PAYOR Tyesha Sullivan Notes Date Note Type Note Provider Name and Address Organization Details Recorded Time 01/19/2024 text/html PREVIOUS (07/08/23): Ms. Sullivan is a pleasant 53-year-old female with history of idiopathic pancreatitis, calcified cystic lesion of the pancreas, GERD, and hepatic steatosis who was referred by Jose Ugalde NP due to recent finding of low serum amylase on labs. The patient has previously established care with GI at [facility] and had undergone previous cross sectional imaging that showed the cystic lesion of the pancreas. She underwent EUS by Dr. Kumar last year that did not demonstrate any pancreatic abnormality. The area seen on CT was felt to be due to calcified vessels. She states she was hospitalized with pancreatitis about 6 months ago. She denies alcohol use and underwent cholecystectomy in 2011. She denies prior episodes of pancreatitis prior to that. She denies nausea, vomiting, post-prandial abdominal pain, or a family history of pancreatitis/pancreat ic cancer. She is feeling well at this time. Her most recent labs performed on 05/07/23 showed normal hepatic function labs with negative acute hepatitis panel, normal lipase, and amylase below low normal at 30. CURRENT (01/19/24): Ms. Sullivan presents to the office today for 6 month follow-up regarding history of idiopathic pancreatitis, pancreatic lesion, GERD, and NAFLD. She underwent surveillance MRI of pancreatic lesion last week with findings of a stable 2 x 2.5 cm lesion likely representing a pseudocyst. CMP from 11/19/23 showed normal AST, ALT and elevated ALP at 132. She reports feeling well overall at this time. She notes occasional mild RUQ discomfort. She denies heartburn. James Barker PA-C [address], [place], [address], [place] - [facility] [place] & [place] 01/19/2024 09:46:10 02/20/2024 text/html PREVIOUS (07/08/23): Ms. Sullivan is a pleasant 53-year-old female with history of idiopathic pancreatitis, calcified cystic lesion of the pancreas, GERD, and hepatic steatosis who was referred by Jose Ugalde NP due to recent finding of low serum amylase on labs. The patient has previously established care with GI at [facility] and had undergone previous cross sectional imaging that showed the cystic lesion of the pancreas. She underwent EUS by Dr. Kumar last year that did not demonstrate any pancreatic abnormality. The area seen on CT was felt to be due to calcified vessels. She states she was hospitalized with pancreatitis about 6 months ago. She denies alcohol use and underwent cholecystectomy in 2011. She denies prior episodes of pancreatitis prior to that. She denies nausea, vomiting, post-prandial abdominal pain, or a family history of pancreatitis/pancreat ic cancer. She is feeling well at this time. Her most recent labs performed on 05/07/23 showed normal hepatic function labs with negative acute hepatitis panel, normal lipase, and amylase below low normal at 30. PREVIOUS (01/19/24): Ms. Sullivan presents to the office today for 6 month follow-up regarding history of idiopathic pancreatitis, pancreatic lesion, GERD, and NAFLD. She underwent surveillance MRI of pancreatic lesion last week with findings of a stable 2 x 2.5 cm lesion likely representing a pseudocyst. CMP from 11/19/23 showed normal AST, ALT and elevated ALP at 132. She reports feeling well overall at this time. She notes occasional mild RUQ discomfort. She denies heartburn. CURRENT 02/20/24): Ms. Sullivan returns to the office today with complaint of recently noticing some swelling and bloating sensation in the RUQ. This comes and goes. She was concerned due to history of recent small pseudocyst seen on MRI. She denies abdominal pain, nausea, or intolerance of a p.o. diet. James Barker PA-C [address], [place], [address], [facility] - [facility] & [place] 02/20/2024 14:59:12 10/26/2024 text/html Patient was seen today for a hearing aid service. Cleaned and adjusted hearing aids this date. TAI SKAGGS [address], [place], [address], [facility] - [facility] & [place] 10/26/2024 13:09:55 12/07/2024 text/html Patient was seen today for a hearing aid service. Cleaned and adjusted hearing aids this date. TAI SKAGGS [address], [place], [address], [place] [facility] & [place] 12/07/2024 13:03:31 01/04/2025 text/html Patient was seen today for a hearing aid service. Cleaned and adjusted hearing aids this date. TAI SKAGGS [address], [place], [address], [place] - [facility] & [place] 01/04/2025 11:25:39 OBGyn Episode No OBEpisode recorded.
--- OUTSIDE RECORDS SUMMARY | 2025-03-30 12:52 | XMS_ITS | Clinical Summary ---
Author Organization [facility] Address [address] [place] [address] Care Team Providers Care Polymerization Helper Name Role Phone Skylar Farley APRN Primary Care Provider [phone] Allergies Active Allergy Reactions Criticality Noted Date [...] 2020 [facility]-Zoster Vaccines (1 of 2) 2020 [id number] Vaccine (4 - 2024- season) 2025 06/15/2021, 12/14/2020, 11/16/2020 [facility]-Influenza Vaccine (#1) 01/31/202505/21, [...] age to complete this topic Insurance AETNA [facility] MEDICAID [employer] Medicaid Dental Care Teams Polymerization Helper Relationship Specialty Start Date End Date Skylar Farley APRN [address] [place] [id number] PCP - General 10/13/20
== END 2025-03-29 23:59 | disposition home or self-care (01) ==
LOC: LAB.DROPOF 03-30 12:49
PROVIDERS: PCP Student in an Organized Health Care Education/Training Program; Visit Provider Student in an Organized Health Care Education/Training Program
DX: E78.5 Hyperlipidemia, unspecified (principal); N18.9 Chronic kidney disease, unspecified
CPT/HCPCS: 80053; 80061; 84439; 84443